=== PATIENT | male | born 1945 | race Caucasian/White ===

== ENCOUNTER → 2017-12-26 | Outpatient (CLI) | payer MEDICARE ==
--- NOTE | 2017-12-26 08:20 | US ---
EXAMINATION TYPE: US duplex aorta DATE OF EXAM: 12/26/2017 COMPARISON: NONE CLINICAL HISTORY: Z13.9 Screening for Disorder. Smoker x 65 years; No HTN EXAM MEASUREMENTS: Abdominal Aorta: Proximal: 2.5 by 2.3 cm transversely Mid: 2.2 x 1.8 cm transversely Distal: 1.8 x 2.1 cm transversely Bifurcation: 1.25cm Transverse Right SUSHIL; 1.19cm Transverse Left SUSHIL Abdominal aorta is visualized through bifurcation without greater than 3 cm aneurysmal change. IMPRESSION: No ultrasound evidence for AAA.
== END ==
LOC: RADUSWWP 07:00
PROVIDERS: ATTEND Family Medicine
DX: Z13.9 Encounter for screening, unspecified (principal)
CPT/HCPCS: 93979

== ENCOUNTER 2020-10-22 21:22 | Inpatient (IN) | payer MEDICARE ==
[2020-10-22] MEDS ORDERED: TRANEXAMIC ACID 1,000 MG/10 ML VIAL INHALATION ONE (22:00)
[2020-10-22] MEDS ORDERED: ONDANSETRON 4 MG/2 ML VIAL IVP STA (22:03)
[2020-10-22] MEDS ORDERED: IPRATROPIUM-ALBUTEROL 3 ML NEB INHALATION STA (22:03)
[2020-10-22] MEDS ORDERED: PANTOPRAZOLE 40 MG/10 ML VIAL IVP STA (22:03)
[2020-10-22] MEDS ORDERED: LORazepam 2 MG/ML INJ IV STA (22:03)
[2020-10-22] MEDS ORDERED: methylPREDNISolone SOD SUCCI 125 MG/2 ML VIAL IV STA (22:07)
[2020-10-22] MEDS ORDERED: TERBUTALINE 1 MG/ML VIAL SQ STA (22:13)
[2020-10-22] MEDS ORDERED: TRANEXAMIC ACID 1,000 MG in SODIUM CHLORIDE 0.9% 100 ML IV ONE (22:15)
[2020-10-22] MEDS ORDERED: PHYTONADIONE 5 MG in SODIUM CHLORIDE 0.9% 50 ML IVPB ONE (22:15)
[2020-10-22 22:25] LABS: Basophils # (A) 0.1 k/uL (0-0.2); Basophils % (A) 1 %; Eosinophils # (A) 0.4 k/uL (0-0.7); Eosinophils % (A) 4 %; HCT 39.3 % (39.0-53.0); HGB 12.5 gm/dL (13.0-17.5); Lymphocytes # (A) 2.7 k/uL (1.0-4.8); Lymphocytes % (A) 27 %; MCH 30.4 pg (25.0-35.0); MCHC 31.7 g/dL (31.0-37.0); MCV 95.9 fL (80.0-100.0); Mean Platelet Volume 7.3; Monocytes # (A) 0.8 k/uL (0-1.0); Monocytes % (A) 8 %; Neutrophils # (A) 5.8 k/uL (1.3-7.7); Neutrophils % (A) 58 %; Platelet Count 404 k/uL (150-450); RBC 4.09 m/uL (4.30-5.90); RDW 13.9 % (11.5-15.5)
--- NOTE | 2020-10-22 22:29 | XR ---
EXAMINATION TYPE: XR chest 1V portable DATE OF EXAM: 10/22/2020 COMPARISON: 11/12/2009 HISTORY: Cough TECHNIQUE: Single view FINDINGS: There is extensive airspace consolidation right upper lobe. There is some patchy infiltrate throughout both lungs. Heart size is fairly normal. There is no gross heart failure. There is flatte tan of the diaphragm. There are surgical clips at the gastroesophageal junction. There are chest jace ds. IMPRESSION: Right upper lobe pneumonia. Consolidation at the right lung apex. Bilateral diffuse inter stitial pneumonia. Lung abnormality significantly increased compared to old exam.
[2020-10-22 22:39] LABS: ALT 10 U/L (4-49); AST 20 U/L (17-59); African American GFR (CKD) >90 (>60 ml/min/1.73 sqM); Albumin 3.8 g/dL (3.5-5.0); Alkaline Phosphatase 107 U/L (38-126); Anion Gap 11 mmol/L; Blood Urea Nitrogen 20 mg/dL (9-20); Calcium 9.1 mg/dL (8.4-10.2); Carbon Dioxide 26 mmol/L (22-30); Chloride 103 mmol/L (98-107); Glucose 138 mg/dL (74-99); Non-African American GFR(CKD) 82 (>60 ml/min/1.73 sqM); Phosphorus 3.9 mg/dL (2.5-4.5); Potassium 4.7 mmol/L (3.5-5.1); Sodium 140 mmol/L (137-145); Total Bilirubin 0.4 mg/dL (0.2-1.3); Total Protein 6.9 g/dL (6.3-8.2)
[2020-10-22] MEDS ORDERED: SODIUM CHLORIDE 0.9% 2,000 ML IV ONE (22:45)
[2020-10-22] MEDS ORDERED: NOREPINEPHRINE 4 MG in SODIUM CHLORIDE 0.9% 250 ML IV ONE (22:45)
[2020-10-22] MEDS ORDERED: MIDAZOLAM 1 MG/ML 5 ML VIAL IV STA (22:59)
[2020-10-22] MEDS ORDERED: ROCURONIUM 10 MG/ML (5 ML VIAL) IV STA (23:00)
--- NOTE | 2020-10-22 23:01 | XR ---
EXAMINATION TYPE: XR chest 1V DATE OF EXAM: 10/22/2020 COMPARISON: Today HISTORY: Coughing up blood. Intubation TECHNIQUE: Eusebio view FINDINGS: The endotracheal tube is 5 cm from the konstantin. There is diffuse pulmonary interstitial infi ltrates. There is consolidation at the right lung apex. No pneumothorax. Trachea is midline. There is no pleural effusion. There is nasogastric tube and the tip appears to be in the distal esophagus. IMPRESSION: Endotracheal tube in good position. Nasogastric tube appears to be in the lower esophagus .
[2020-10-22 23:03] LABS: INR 3.7 (<1.2); Partial Thromboplastin Time 34.4 sec (22.0-30.0); Prothrombin Time 35.4 sec (9.0-12.0)
[2020-10-22 23:45] LABS: ABG Base Excess -6.2 mmol/L; ABG HCO3 22 mmol/L (21-25); ABG Oxygen Saturation 99.3 % (94-97); ABG PCO2 55 mmHg (35-45); ABG PH 7.21 (7.35-7.45); ABG PO2 >400 mmHg (83-108); ABG TCO2 23 mmol/L (19-24); Allen Test Performed? Yes
[2020-10-22] MEDS ORDERED: AZITHROMYCIN 500 MG in SODIUM CHLORIDE 0.9% 250 ML IVPB ONE (23:45)
[2020-10-23] MEDS ORDERED: MIDAZOLAM 1 MG/ML 5 ML VIAL IV STA (00:09)
[2020-10-23] MEDS ORDERED: SODIUM CHLORIDE 0.9% 150 ML with VASOPRESSIN 60 UNIT IV SCH ×2 (00:30)
[2020-10-23] MEDS ORDERED: NOREPINEPHRINE 32 MG in SODIUM CHLORIDE 0.9% 218 ML IV ONE (00:30)
[2020-10-23] MEDS ORDERED: MIDAZOLAM HCL 50 MG in SODIUM CHLORIDE 0.9% 40 ML IV SCH (00:30)
--- NOTE | 2020-10-23 00:51 | ED ---
SOB HPI - General Chief Complaint: Recheck/Abnormal Lab/Rx Stated Complaint: Vomiting blood Time Seen by Provider: 10/22/20 21:37 Source: patient, RN notes reviewed, old records reviewed Mode of arrival: ambulatory Limitations: no limitations - History of Present Illness Initial Comments: This is a 75-year-old male coming to the ER for evaluation. Per family patient has a fibrillation on Coumadin. Patient had an active few days but began to cough up blood tonight which initially began this morning. The coughing up of blood increased tonight to become more bright red and patient was having more difficulty catching his breath. Patient continues to deny any chest pain or recent fevers. He does get sweats and currently feels very sweaty. Patient denying any recent significant travel history or sick contacts. No recent hospitalizations. Patient is in significant distress upon arrival in the ER w Complaint: shortness of breath, cough, anxiety -: hour(s) Severity: severe Severity scale (1-10): 10 Improves With: nothing Worsens With: nothing Known History Of: COPD, other (On anticoagulation) Context: recent URI, anxiety, recent illness, other (Hemoptysis) Associated Symptoms: cough, sputum production, hemoptysis Treatments Prior to Arrival: none - Related Data Home Oxygen Therapy: No Home Medications Medication Instructions Recorded Confirmed Levothyroxine Sodium 25 mcg PO DAILY 10/22/20 10/22/20 Metoprolol Tartrate [Lopressor] 50 mg PO HS 10/22/20 10/22/20 Metoprolol Tartrate [Lopressor] 100 mg PO DAILY@1200 10/22/20 10/22/20 Metoprolol Tartrate [Lopressor] 150 mg PO DAILY@0900 10/22/20 10/22/20 Warfarin Sodium 5 mg PO TUSA 10/22/20 10/22/20 Allergies Allergy/AdvReac Type Severity Reaction Status Date / Time No Known Allergies Allergy Verified 10/22/20 22:04 Review of Systems ROS Statement: Those systems with pertinent positive or pertinent negative responses have been documented in the HPI. ROS Other: All systems not noted in ROS Statement are negative. 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 History of Any Multi-Drug Resistant Organisms: None Reported Additional Past Surgical History / Comment(s): EGD Past Psychological History: No Psychological Hx Reported Smoking Status: Former smoker Past Alcohol Use History: None Reported Past Drug Use History: None Reported General Exam - General Exam Comments Initial Comments: GCS of 15 Patient is awake and alert but in severe respiratory distress Actively coughing up significant amounts of blood, bright red blood Limitations: altered mental status, physical limitation General appearance: alert, anxious, lethargic, in distress, cachectic Head exam: Present: atraumatic, normocephalic, normal inspection Eye exam: Present: normal appearance, PERRL, EOMI. Absent: scleral icterus, conjunctival injection, periorbital swelling ENT exam: Present: normal exam, mucous membranes moist Neck exam: Present: normal inspection. Absent: tenderness, meningismus, lymphadenopathy Respiratory exam: Present: respiratory distress, wheezes, accessory muscle use, decreased breath sounds, prolonged expiratory. Absent: rales, rhonchi, stridor Cardiovascular Exam: Present: tachycardia, irregular rhythm, normal heart sounds. Absent: systolic murmur, diastolic murmur, rubs, gallop, clicks GI/Abdominal exam: Present: soft, normal bowel sounds. Absent: distended, tenderness, guarding, rebound, rigid Extremities exam: Present: normal inspection, full ROM, normal capillary refill. Absent: tenderness, pedal edema, joint swelling, calf tenderness Back exam: Present: normal inspection Neurological exam: Present: alert, oriented X3, CN II-XII intact Psychiatric exam: Present: anxious Skin exam: Present: warm, dry, intact, normal color, diaphoretic. Absent: rash Course Vital Signs 10/22/20 10/22/20 10/22/20 21:24 22:00 22:06 Temperature 97.8 F Pulse Rate 122 H 142 H 146 H Respiratory 22 Rate Blood Pressure 121/83 O2 Sat by Pulse 90 L Oximetry 10/22/20 10/22/20 10/22/20 22:46 22:50 22:55 Temperature Pulse Rate 149 H 160 H 154 H Respiratory 14 14 Rate Blood Pressure 129/67 85/71 O2 Sat by Pulse 100 100 Oximetry 10/22/20 10/22/20 10/22/20 23:00 23:15 23:20 Temperature Pulse Rate 147 H 154 H 154 H Respiratory 14 14 14 Rate Blood Pressure 83/67 74/42 98/78 O2 Sat by Pulse 100 100 100 Oximetry 0710/22/20 10/22/20 23:30 23:35 23:40 Temperature Pulse Rate 147 H 147 H 142 H Respiratory 14 14 14 Rate Blood Pressure 82/50 83/43 75/49 O2 Sat by Pulse 100 100 100 Oximetry 10/22/20 10/23/20 10/23/20 23:45 00:00 00:17 Temperature Pulse Rate 142 H 142 H 142 H Respiratory 14 14 14 Rate Blood Pressure 84/66 85/73 82/60 O2 Sat by Pulse 100 100 100 Oximetry 10/23/20 10/23/20 10/23/20 00:31 00:35 00:47 Temperature Pulse Rate 131 H Respiratory 14 20 Rate Blood Pressure 77/39 66/49 O2 Sat by Pulse 99 98 Oximetry 10/23/20 10/23/20 10/23/20 00:55 01:00 01:10 Temperature Pulse Rate 129 H 125 H 126 H Respiratory 20 20 20 Rate Blood Pressure 56/39 61/44 58/48 O2 Sat by Pulse 99 97 100 Oximetry 10/23/20 10/23/20 10/23/20 01:15 01:25 01:35 Temperature Pulse Rate 133 H 117 H 120 H Respiratory 20 20 20 Rate Blood Pressure 65/55 65/52 82/70 O2 Sat by Pulse 100 97 100 Oximetry 10/23/20 10/23/20 10/23/20 02:00 02:24 02:45 Temperature 97.8 F Pulse Rate 124 H 129 H 122 H Respiratory 20 20 15 Rate Blood Pressure 100/79 87/69 90/65 O2 Sat by Pulse 100 96 95 Oximetry 10/23/20 10/23/20 02:51 03:00 Temperature Pulse Rate 120 H Respiratory 50 H Rate Blood Pressure 80/57 86/61 O2 Sat by Pulse 95 Oximetry - Reevaluation(s) Reevaluation #1: 10/23/20 00:53 Record is reviewed 10/23/20 00:53 Patient presenting in significant distress severe respiratory distress Reevaluation #2: 10/23/20 00:53 Patient given breathing treatments and nebulized TxA on arrival to ER secondary to massive hemoptysis Patient became critical and he became weak and was unable to cough up blood in his lungs. While on nonrebreather and taking it off to rule out patient to cough up the blood patient continued to become more hypoxic, diaphoretic Patient began to become significantly fatigued and tired from a significant work of breathing This patient became significantly more somnolent and decision was made to intubate Reevaluation #3: 10/23/20 00:55 Patient also found to be in significant atrial fibrillation with RVR, unable to control rate and significantly labile blood pressure, hypotensive Patient is requiring blood pressure support Patient is moving and experiencing pain requiring sedation Patient's oxygenation improving of event although remains in cardiogenic shock in atrial fibrillation with RVR Reevaluation #4: 10/23/20 00:56 Did speak with family and family members at bedside her aware of patient's condition and grave prognosis - Consultations Consultation #1: Spoke with ICU for admission, Dr. Woo, [facility] also aware for admission Medical Decision Making - Medical Decision Making 75 male to the ER for evaluation. Patient presented for shortness of breath and coughing up blood or bloody couple more short of breath he became the weekly became more hypoxic he became. Patient was intubated for hypoxic respiratory failure, found to be nature for ablation with RVR throughout ER stay worsening cardiogenic shock port. Patient also found to have pneumonia on x-ray place on antibiotics. - Lab Data Result diagrams: 10/22/20 22:08 10/22/20 22:08 Lab Results 10/22/20 10/22/20 10/22/20 Range/Units 22:08 22:08 22:08 WBC 10.0 (3.8-10.6) k/uL RBC 4.09 L (4.30-5.90) m/uL Hgb 12.5 L (13.0-17.5) gm/dL Hct 39.3 (39.0-53.0) % MCV 95.9 (80.0-100.0) fL MCH 30.4 (25.0-35.0) pg MCHC 31.7 (31.0-37.0) g/dL RDW 13.9 (11.5-15.5) % Plt Count 404 (150-450) k/uL MPV 7.3 Neutrophils % 58 % Lymphocytes % 27 % Monocytes % 8 % Eosinophils % 4 % Basophils % 1 % Neutrophils # 5.8 (1.3-7.7) k/uL Lymphocytes # 2.7 (1.0-4.8) k/uL Monocytes # 0.8 (0-1.0) k/uL Eosinophils # 0.4 (0-0.7) k/uL Basophils # 0.1 (0-0.2) k/uL PT 35.4 H (9.0-12.0) sec INR 3.7 H (<1.2) APTT 34.4 H (22.0-30.0) sec D-Dimer 0.39 (<0.60) mg/L FEU Sample Site ABG pH (7.35-7.45) ABG pCO2 (35-45) mmHg ABG pO2 (83-108) mmHg ABG HCO3 (21-25) mmol/L ABG Total CO2 (19-24) mmol/L ABG O2 Saturation (94-97) % ABG Base Excess mmol/L Lucho Test FiO2 % Sodium 140 (137-145) mmol/L Potassium 4.7 (3.5-5.1) mmol/L Chloride 103 (98-107) mmol/L Carbon Dioxide 26 (22-30) mmol/L Anion Gap 11 mmol/L BUN 20 (9-20) mg/dL Creatinine 0.92 (0.66-1.25) mg/dL Est GFR (CKD-EPI)AfAm >90 (>60 ml/min/1.73 sqM) Est GFR (CKD-EPI)NonAf 82 (>60 ml/min/1.73 sqM) Glucose 138 H (74-99) mg/dL Lactic Ac Sepsis Rflx Plasma Lactic Acid Isaac (0.7-2.0) mmol/L Calcium 9.1 (8.4-10.2) mg/dL Phosphorus 3.9 (2.5-4.5) mg/dL Magnesium 2.0 (1.6-2.3) mg/dL Total Bilirubin 0.4 (0.2-1.3) mg/dL AST 20 (17-59) U/L ALT 10 (4-49) U/L Alkaline Phosphatase 107 (38-126) U/L Troponin I (0.000-0.034) ng/mL Total Protein 6.9 (6.3-8.2) g/dL Albumin 3.8 (3.5-5.0) g/dL 10/22/20 10/22/20 10/22/20 Range/Units 22:08 22:08 22:48 WBC (3.8-10.6) k/uL RBC (4.30-5.90) m/uL Hgb (13.0-17.5) gm/dL Hct (39.0-53.0) % MCV (80.0-100.0) fL MCH (25.0-35.0) pg MCHC (31.0-37.0) g/dL RDW (11.5-15.5) % Plt Count (150-450) k/uL MPV Neutrophils % % Lymphocytes % % Monocytes % % Eosinophils % % Basophils % % Neutrophils # (1.3-7.7) k/uL Lymphocytes # (1.0-4.8) k/uL Monocytes # (0-1.0) k/uL Eosinophils # (0-0.7) k/uL Basophils # (0-0.2) k/uL PT (9.0-12.0) sec INR (<1.2) APTT (22.0-30.0) sec D-Dimer (<0.60) mg/L FEU Sample Site ABG pH (7.35-7.45) ABG pCO2 (35-45) mmHg ABG pO2 (83-108) mmHg ABG HCO3 (21-25) mmol/L ABG Total CO2 (19-24) mmol/L ABG O2 Saturation (94-97) % ABG Base Excess mmol/L Lucho Test FiO2 % Sodium (137-145) mmol/L Potassium (3.5-5.1) mmol/L Chloride (98-107) mmol/L Carbon Dioxide (22-30) mmol/L Anion Gap mmol/L BUN (9-20) mg/dL Creatinine (0.66-1.25) mg/dL Est GFR (CKD-EPI)AfAm (>60 ml/min/1.73 sqM) Est GFR (CKD-EPI)NonAf (>60 ml/min/1.73 sqM) Glucose (74-99) mg/dL Lactic Ac Sepsis Rflx Y Plasma Lactic Acid Isaac 2.6 H* (0.7-2.0) mmol/L Calcium (8.4-10.2) mg/dL Phosphorus (2.5-4.5) mg/dL Magnesium (1.6-2.3) mg/dL Total Bilirubin (0.2-1.3) mg/dL AST (17-59) U/L ALT (4-49) U/L Alkaline Phosphatase (38-126) U/L Troponin I <0.012 (0.000-0.034) ng/mL Total Protein (6.3-8.2) g/dL Albumin (3.5-5.0) g/dL 10/22/20 10/23/20 Range/Units 23:41 01:54 WBC (3.8-10.6) k/uL RBC (4.30-5.90) m/uL Hgb (13.0-17.5) gm/dL Hct (39.0-53.0) % MCV (80.0-100.0) fL MCH (25.0-35.0) pg MCHC (31.0-37.0) g/dL RDW (11.5-15.5) % Plt Count (150-450) k/uL MPV Neutrophils % % Lymphocytes % % Monocytes % % Eosinophils % % Basophils % % Neutrophils # (1.3-7.7) k/uL Lymphocytes # (1.0-4.8) k/uL Monocytes # (0-1.0) k/uL Eosinophils # (0-0.7) k/uL Basophils # (0-0.2) k/uL PT (9.0-12.0) sec INR (<1.2) APTT (22.0-30.0) sec D-Dimer (<0.60) mg/L FEU Sample Site L femoral ABG pH 7.21 L (7.35-7.45) ABG pCO2 55 H (35-45) mmHg ABG pO2 >400 H (83-108) mmHg ABG HCO3 22 (21-25) mmol/L ABG Total CO2 23 (19-24) mmol/L ABG O2 Saturation 99.3 H (94-97) % ABG Base Excess -6.2 mmol/L Lucho Test Yes FiO2 100 % Sodium (137-145) mmol/L Potassium (3.5-5.1) mmol/L Chloride (98-107) mmol/L Carbon Dioxide (22-30) mmol/L Anion Gap mmol/L BUN (9-20) mg/dL Creatinine (0.66-1.25) mg/dL Est GFR (CKD-EPI)AfAm (>60 ml/min/1.73 sqM) Est GFR (CKD-EPI)NonAf (>60 ml/min/1.73 sqM) Glucose (74-99) mg/dL Lactic Ac Sepsis Rflx Plasma Lactic Acid Isaac 1.9 (0.7-2.0) mmol/L Calcium (8.4-10.2) mg/dL Phosphorus (2.5-4.5) mg/dL Magnesium (1.6-2.3) mg/dL Total Bilirubin (0.2-1.3) mg/dL AST (17-59) U/L ALT (4-49) U/L Alkaline Phosphatase (38-126) U/L Troponin I (0.000-0.034) ng/mL Total Protein (6.3-8.2) g/dL Albumin (3.5-5.0) g/dL - EKG Data -: EKG Interpreted by Me (EKG shows sinus arrhythmia 128 QRS 106 QTc 452) Rate: tachycardia (EKG shows A. fib with RVR 151 QRS 102 QTC 510) - Radiology Data Radiology results: report reviewed (Chest x-ray and then repeat chest x-ray does show ET tube placement positive, right upper lobe pneumonia), image reviewed Critical Care Time Critical Care Time: Yes Total Critical Care Time: 65 Disposition Clinical Impression: Acute exacerbation of COPD with asthma, Hypoxia, Acute respiratory failure, Shock, Atrial fibrillation with RVR, Massive hemoptysis, Community acquired pneumonia, Coagulopathy, Coumadin toxicity Disposition: ADMITTED IP TO THIS HOSP Condition: Critical Is patient prescribed a controlled substance at d/c from ED?: No
[2020-10-23] MEDS: fentaNYL (PF). 1,000 MCG in SODIUM CHLORIDE 0.9% 80 ML IV SCH ×2 (01:40→01:48)
[2020-10-23] MEDS ORDERED: NALOXONE 0.4 MG/ML 1 ML VIAL IV PRN (01:56)
[2020-10-23] MEDS ORDERED: MORPHINE SULFATE 4 MG/ML SYRINGE IV PRN (01:56)
[2020-10-23] MEDS ORDERED: IPRATROPIUM-ALBUTEROL 3 ML NEB INHALATION STA (01:56)
[2020-10-23] MEDS ORDERED: DEXTROSE 5%-0.45% NACL 1,000 ML IV SCH (02:00)
[2020-10-23] MEDS ORDERED: ALBUTEROL HFA INHALER INHALATION STA (02:17)
[2020-10-23 03:29] LABS: Glucose,Whole Blood 201 mg/dL (75-99)
--- NOTE | 2020-10-23 04:55 | ED ---
Medical Decision Making - Medical Decision Making Addendum note for procedures - Lab Data Result diagrams: 10/22/20 22:08 10/22/20 22:08 Lab Results 10/22/20 10/22/20 10/22/20 Range/Units 22:08 22:08 22:08 WBC 10.0 (3.8-10.6) k/uL RBC 4.09 L (4.30-5.90) m/uL Hgb 12.5 L (13.0-17.5) gm/dL Hct 39.3 (39.0-53.0) % MCV 95.9 (80.0-100.0) fL MCH 30.4 (25.0-35.0) pg MCHC 31.7 (31.0-37.0) g/dL RDW 13.9 (11.5-15.5) % Plt Count 404 (150-450) k/uL MPV 7.3 Neutrophils % 58 % Lymphocytes % 27 % Monocytes % 8 % Eosinophils % 4 % Basophils % 1 % Neutrophils # 5.8 (1.3-7.7) k/uL Lymphocytes # 2.7 (1.0-4.8) k/uL Monocytes # 0.8 (0-1.0) k/uL Eosinophils # 0.4 (0-0.7) k/uL Basophils # 0.1 (0-0.2) k/uL PT 35.4 H (9.0-12.0) sec INR 3.7 H (<1.2) APTT 34.4 H (22.0-30.0) sec D-Dimer 0.39 (<0.60) mg/L FEU Sample Site ABG pH (7.35-7.45) ABG pCO2 (35-45) mmHg ABG pO2 (83-108) mmHg ABG HCO3 (21-25) mmol/L ABG Total CO2 (19-24) mmol/L ABG O2 Saturation (94-97) % ABG Base Excess mmol/L Lucho Test FiO2 % Sodium 140 (137-145) mmol/L Potassium 4.7 (3.5-5.1) mmol/L Chloride 103 (98-107) mmol/L Carbon Dioxide 26 (22-30) mmol/L Anion Gap 11 mmol/L BUN 20 (9-20) mg/dL Creatinine 0.92 (0.66-1.25) mg/dL Est GFR (CKD-EPI)AfAm >90 (>60 ml/min/1.73 sqM) Est GFR (CKD-EPI)NonAf 82 (>60 ml/min/1.73 sqM) Glucose 138 H (74-99) mg/dL Lactic Ac Sepsis Rflx Plasma Lactic Acid Isaac (0.7-2.0) mmol/L Calcium 9.1 (8.4-10.2) mg/dL Phosphorus 3.9 (2.5-4.5) mg/dL Magnesium 2.0 (1.6-2.3) mg/dL Total Bilirubin 0.4 (0.2-1.3) mg/dL AST 20 (17-59) U/L ALT 10 (4-49) U/L Alkaline Phosphatase 107 (38-126) U/L Troponin I (0.000-0.034) ng/mL Total Protein 6.9 (6.3-8.2) g/dL Albumin 3.8 (3.5-5.0) g/dL 10/22/20 10/22/20 10/22/20 Range/Units 22:08 22:08 22:48 WBC (3.8-10.6) k/uL RBC (4.30-5.90) m/uL Hgb (13.0-17.5) gm/dL Hct (39.0-53.0) % MCV (80.0-100.0) fL MCH (25.0-35.0) pg MCHC (31.0-37.0) g/dL RDW (11.5-15.5) % Plt Count (150-450) k/uL MPV Neutrophils % % Lymphocytes % % Monocytes % % Eosinophils % % Basophils % % Neutrophils # (1.3-7.7) k/uL Lymphocytes # (1.0-4.8) k/uL Monocytes # (0-1.0) k/uL Eosinophils # (0-0.7) k/uL Basophils # (0-0.2) k/uL PT (9.0-12.0) sec INR (<1.2) APTT (22.0-30.0) sec D-Dimer (<0.60) mg/L FEU Sample Site ABG pH (7.35-7.45) ABG pCO2 (35-45) mmHg ABG pO2 (83-108) mmHg ABG HCO3 (21-25) mmol/L ABG Total CO2 (19-24) mmol/L ABG O2 Saturation (94-97) % ABG Base Excess mmol/L Lucho Test FiO2 % Sodium (137-145) mmol/L Potassium (3.5-5.1) mmol/L Chloride (98-107) mmol/L Carbon Dioxide (22-30) mmol/L Anion Gap mmol/L BUN (9-20) mg/dL Creatinine (0.66-1.25) mg/dL Est GFR (CKD-EPI)AfAm (>60 ml/min/1.73 sqM) Est GFR (CKD-EPI)NonAf (>60 ml/min/1.73 sqM) Glucose (74-99) mg/dL Lactic Ac Sepsis Rflx Y Plasma Lactic Acid Isaac 2.6 H* (0.7-2.0) mmol/L Calcium (8.4-10.2) mg/dL Phosphorus (2.5-4.5) mg/dL Magnesium (1.6-2.3) mg/dL Total Bilirubin (0.2-1.3) mg/dL AST (17-59) U/L ALT (4-49) U/L Alkaline Phosphatase (38-126) U/L Troponin I <0.012 (0.000-0.034) ng/mL Total Protein (6.3-8.2) g/dL Albumin (3.5-5.0) g/dL 10/22/20 10/23/20 Range/Units 23:41 01:54 WBC (3.8-10.6) k/uL RBC (4.30-5.90) m/uL Hgb (13.0-17.5) gm/dL Hct (39.0-53.0) % MCV (80.0-100.0) fL MCH (25.0-35.0) pg MCHC (31.0-37.0) g/dL RDW (11.5-15.5) % Plt Count (150-450) k/uL MPV Neutrophils % % Lymphocytes % % Monocytes % % Eosinophils % % Basophils % % Neutrophils # (1.3-7.7) k/uL Lymphocytes # (1.0-4.8) k/uL Monocytes # (0-1.0) k/uL Eosinophils # (0-0.7) k/uL Basophils # (0-0.2) k/uL PT (9.0-12.0) sec INR (<1.2) APTT (22.0-30.0) sec D-Dimer (<0.60) mg/L FEU Sample Site L femoral ABG pH 7.21 L (7.35-7.45) ABG pCO2 55 H (35-45) mmHg ABG pO2 >400 H (83-108) mmHg ABG HCO3 22 (21-25) mmol/L ABG Total CO2 23 (19-24) mmol/L ABG O2 Saturation 99.3 H (94-97) % ABG Base Excess -6.2 mmol/L Lucho Test Yes FiO2 100 % Sodium (137-145) mmol/L Potassium (3.5-5.1) mmol/L Chloride (98-107) mmol/L Carbon Dioxide (22-30) mmol/L Anion Gap mmol/L BUN (9-20) mg/dL Creatinine (0.66-1.25) mg/dL Est GFR (CKD-EPI)AfAm (>60 ml/min/1.73 sqM) Est GFR (CKD-EPI)NonAf (>60 ml/min/1.73 sqM) Glucose (74-99) mg/dL Lactic Ac Sepsis Rflx Plasma Lactic Acid Isaac 1.9 (0.7-2.0) mmol/L Calcium (8.4-10.2) mg/dL Phosphorus (2.5-4.5) mg/dL Magnesium (1.6-2.3) mg/dL Total Bilirubin (0.2-1.3) mg/dL AST (17-59) U/L ALT (4-49) U/L Alkaline Phosphatase (38-126) U/L Troponin I (0.000-0.034) ng/mL Total Protein (6.3-8.2) g/dL Albumin (3.5-5.0) g/dL Disposition Clinical Impression: Acute exacerbation of COPD with asthma, Hypoxia, Acute respiratory failure, Shock, Atrial fibrillation with RVR, Massive hemoptysis, Community acquired pneumonia, Coagulopathy, Coumadin toxicity Disposition: ADMITTED IP TO THIS HOSP Condition: Critical Procedures - Central Line Placement Right IJ Consent Obtained: verbal consent Patient Placed on Monitor/Pulse Ox: Yes MD Prep: mask, gown, gloves Central Line Prep: Povidone-Iodine 1% Local Anesthesia Used: Lidocaine 1%, with Epi Ultrasound Used for Placement: Yes Central Line Lumen Inserted: triple Bloods Obtained for Lab: Yes Central Line Position: good blood return, all ports aspirated, flushed, capped, sutured in place with 2-0 silk Dressing Applied: Tegaderm Post Procedure X-Ray: tip of catheter in good position Patient Tolerated Procedure: well Complications: none - Intubation Sedative: Versed Laryngoscope: Latanya Size: 4 ET Tube Size: 8 ET Tube Uncuffed: No Tube Secured Location: teeth Tube Placement Confirmation: visualized tube passing through cords, equal breath sounds bilaterally, no breath sounds over epigastrium, confirmation by capnometry Patient Tolerated Procedure: well Intubation Complications: none
[2020-10-23 05:04] LABS: ABG Base Excess -5.6 mmol/L; ABG HCO3 21 mmol/L (21-25); ABG Oxygen Saturation 95.9 % (94-97); ABG PCO2 45 mmHg (35-45); ABG PH 7.28 (7.35-7.45); ABG PO2 90 mmHg (83-108); ABG TCO2 22 mmol/L (19-24); Allen Test Performed? Yes
[2020-10-23 05:17] LABS: Basophils % (A) 0 %; Eosinophils % (A) 0 %; HCT 35.5 % (39.0-53.0); HGB 10.7 gm/dL (13.0-17.5); Hypochromasia Moderate; Lymphocytes # (A) 0.6 k/uL (1.0-4.8); Lymphocytes % (A) 5 %; MCH 30.1 pg (25.0-35.0); MCHC 30.2 g/dL (31.0-37.0); MCV 99.5 fL (80.0-100.0); Mean Platelet Volume 7.4; Monocytes # (A) 0.3 k/uL (0-1.0); Monocytes % (A) 2 %; Neutrophils # (A) 11.5 k/uL (1.3-7.7); Neutrophils % (A) 92 %; Platelet Count 387 k/uL (150-450); RBC 3.57 m/uL (4.30-5.90); RDW 13.8 % (11.5-15.5); WBC 12.6 k/uL (3.8-10.6)
[2020-10-23 05:21] LABS: INR 3.1 (<1.2); Partial Thromboplastin Time 27.7 sec (22.0-30.0); Prothrombin Time 29.6 sec (9.0-12.0)
[2020-10-23 05:24] LABS: ALT 34 U/L (4-49); AST 71 U/L (17-59); African American GFR (CKD) >90 (>60 ml/min/1.73 sqM); Albumin 2.7 g/dL (3.5-5.0); Alkaline Phosphatase 103 U/L (38-126); Anion Gap 8 mmol/L; Blood Urea Nitrogen 20 mg/dL (9-20); Calcium 7.6 mg/dL (8.4-10.2); Carbon Dioxide 23 mmol/L (22-30); Chloride 108 mmol/L (98-107); Glucose 188 mg/dL (74-99); Magnesium 1.8 mg/dL (1.6-2.3); Non-African American GFR(CKD) 79 (>60 ml/min/1.73 sqM); Potassium 4.8 mmol/L (3.5-5.1); Sodium 139 mmol/L (137-145); Total Bilirubin 0.5 mg/dL (0.2-1.3); Total Protein 5.3 g/dL (6.3-8.2)
[2020-10-23] MEDS ORDERED: INSULIN ASPART (NovoLOG) 100 UNIT/ML VIAL SQ SCH (06:00)
[2020-10-23 06:07] LABS: Glucose,Whole Blood 282 mg/dL (75-99)
[2020-10-23] MEDS: methylPREDNISolone SOD SUCCI 125 MG/2 ML VIAL IV SCH ×4 (06:21→23:03)
[2020-10-23] MEDS: MAGNESIUM SULFATE-D5W PMX 1 GM in DEXTROSE/WATER 1 100ML.BAG IVPB SCH ×2 (06:21→08:33)
--- NOTE | 2020-10-23 07:27 | XR ---
EXAMINATION TYPE: XR chest 1V DATE OF EXAM: 10/23/2020 COMPARISON: 10/22/2020 HISTORY: Short of breath TECHNIQUE: Single frontal view of the chest is obtained. FINDINGS: Interval placement of right IJ line terminating at the cavoatrial junction. Endotracheal and enteric tubes are unchanged. Right apical pleural thickening with bilateral upper lobe predominant airspace disease, unchanged, wi th underlying hyperinflation of the lungs. Cardiac silhouette is unchanged in size. IMPRESSION: Interval placement of right IJ line. Otherwise, no significant change since the prior ex am.
[2020-10-23] MEDS ORDERED: ALBUTEROL NEBULIZED 2.5 MG/3 ML INHALATION SCH (08:00)
[2020-10-23] MEDS: PANTOPRAZOLE 40 MG/10 ML VIAL IV SCH (08:32)
[2020-10-23] MEDS ORDERED: CISATRACURIUM 2 MG/ML 5 ML VIAL IV ONE (08:48)
[2020-10-23] MEDS: METOPROLOL TARTRATE 25 MG TAB PO SCH ×3 (09:18→20:01)
[2020-10-23 09:21] LABS: Glucose,Whole Blood 313 mg/dL (75-99)
[2020-10-23] MEDS: INSULIN ASPART (NovoLOG) 100 UNIT/ML VIAL SQ SCH ×4 (09:23→23:01)
--- NOTE | 2020-10-23 09:38 | P.CNPUL ---
History of Present Illness Consult date: 10/23/20 Requesting physician: Jorge Cordova Reason for consult: dyspnea, COPD, pneumonia, abnormal CXR/CT, other Chief complaint: Shortness of breath, hemoptysis. History of present illness: Pulmonary consult dated 10/23/2020. 75-year-old male who looks much older than his stated age, who apparently came in for coughing up blood. The patient apparently has a history of chronic atrial fibrillation for which she takes Coumadin. Apparently over the last few days, the patient began coughing up blood. On the day of admission to the emergency room, this became much more significant which is why he came in. In addition, he was apparently short of breath. He also apparently has been not eating, and she has been feeling generally ill. Patient apparently was in significant respiratory distress when he was seen in the emergency room, and eventually, because of respiratory compromise and failure, the patient was intubated and mechanically ventilated. He has a history of hypertension, atrial fibrillation, and hypothyroidism. His current ventilator settings include the volume assist control, rate of 20, tidal volume 400, FiO2 40%, and PEEP of 5. Blood gases on those settings pO2 of 90, pCO2 45, and pH is 7.28. The patient's on D5 and half-normal saline at 100 mL an hour, vasopressin at 0.03 units per minute, norepinephrine at 0.13 mcg/kg/m, first set at 1 mg an hour, and fentanyl at 1 mcg/kg/h. The patient's chest x-ray does show an infiltrate in the right upper lobe. White count 12.6, hemoglobin 10.7, hematocrit 35.5, platelet count 387,000. PTT 29.6, INR 3.1, sodium 139, potassium 4.8, chlorides 108, CO2 23, anion gap 8, BUN 20, creatinine 0.95, and a calcium of 7.6. Review of Systems No review of systems could be obtained. The patient was intubated and mechanically ventilated and sedated. According to the ER paolo, he came in with complaints of coughing up blood, and shortness of breath. 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 History of Any Multi-Drug Resistant Organisms: None Reported Additional Past Surgical History / Comment(s): EGD Past Psychological History: No Psychological Hx Reported Smoking Status: Former smoker Past Alcohol Use History: None Reported Past Drug Use History: None Reported Medications and Allergies Home Medications Medication Instructions Recorded Confirmed Type Levothyroxine Sodium 25 mcg PO DAILY 10/22/20 10/22/20 History Metoprolol Tartrate [Lopressor] 50 mg PO HS 10/22/20 10/22/20 History Metoprolol Tartrate [Lopressor] 100 mg PO DAILY@1200 10/22/20 10/22/20 History Metoprolol Tartrate [Lopressor] 150 mg PO DAILY@0900 10/22/20 10/22/20 History Warfarin Sodium 5 mg PO TUSA 10/22/20 10/22/20 History Allergies Allergy/AdvReac Type Severity Reaction Status Date / Time No Known Allergies Allergy Verified 10/22/20 22:04 Physical Exam Osteopathic Statement: *. No significant issues noted on an osteopathic structural exam other than those noted in the History and Physical/Consult. Vitals: Vital Signs Temp Pulse Resp BP Pulse Ox 10/23/20 07:45 133 H 10/23/20 07:30 135 H 10/23/20 07:00 105 H 12 133/89 98 10/23/20 06:30 137 H 15 108/71 98 10/23/20 06:00 122 H 20 115/74 97 10/23/20 05:30 130 H 20 101/76 96 10/23/20 05:00 123 H 20 100/85 97 10/23/20 04:30 124 H 20 101/87 99 10/23/20 04:00 122 H 20 112/81 98 10/23/20 03:30 97.7 F 118 H 20 108/94 99 10/23/20 03:00 120 H 50 H 86/61 95 10/23/20 02:51 80/57 10/23/20 02:45 122 H 15 90/65 95 10/23/20 02:24 97.8 F 129 H 20 87/69 96 10/23/20 02:00 124 H 20 100/79 100 10/23/20 01:35 120 H 20 82/70 100 10/23/20 01:25 117 H 20 65/52 97 10/23/20 01:15 133 H 20 65/55 100 10/23/20 01:10 126 H 20 58/48 100 10/23/20 01:00 125 H 20 61/44 97 10/23/20 00:55 129 H 20 56/39 99 10/23/20 00:47 20 66/49 98 10/23/20 00:35 77/39 10/23/20 00:31 131 H 14 99 10/23/20 00:17 142 H 14 82/60 100 10/23/20 00:00 142 H 14 85/73 100 10/22/20 23:45 142 H 14 84/66 100 10/22/20 23:40 142 H 14 75/49 100 10/22/20 23:35 147 H 14 83/43 100 10/22/20 23:30 147 H 14 82/50 100 10/22/20 23:20 154 H 14 98/78 100 10/22/20 23:15 154 H 14 74/42 100 10/22/20 23:00 147 H 14 83/67 100 10/22/20 22:55 154 H 14 85/71 100 10/22/20 22:50 160 H 14 129/67 100 10/22/20 22:46 149 H 10/22/20 22:30 154 H 73/60 10/22/20 22:25 68/28 10/22/20 22:20 78/64 10/22/20 22:15 137 H 115/76 76 L 10/22/20 22:06 146 H 10/22/20 22:00 154 H 114/74 80 L 10/22/20 21:24 97.8 F 122 H 22 121/83 90 L Intake and Output 10/22/20 10/23/20 10/23/20 22:59 06:59 14:59 Intake Total 357.018 169.725 Output Total 175 20 Balance 182.018 149.725 Intake: IV 300 100 Dextrose 5%-0.45% NaCl 1, 300 100 000 ml @ 100 mls/hr IV . Q10H [facility] Rx#:[id number] Intake, IV Titration 57.018 69.725 Amount Midazolam HCl 50 mg In 7.284 Sodium Chloride 0.9% 40 ml @ 1 MG/HR 1 mls/hr IV .Q24H [facility] Rx#:[id number] Norepinephrine 32 mg In 6.211 23.715 Sodium Chloride 0.9% 218 ml @ 0.05 MCG/KG/MIN 1.33 mls/hr IV .Q24H [facility] Rx#: [id number] Norepinephrine 4 mg In 50.807 Sodium Chloride 0.9% 250 ml @ 0.05 MCG/KG/MIN 10. 81 mls/hr IV .[id number] [facility] Rx#:[id number] fentaNYL (PF). 1,000 mcg 38.016 In Sodium Chloride 0.9% 80 ml @ Per Protocol IV . Q0M [facility] Rx#:[id number] propofoL 1,000 mg In 0.710 Empty Bag 1 bag @ Titrate IV .Q0M [facility] Rx#: [id number] Output: Urine 175 20 Other: Voiding Method Indwelling Catheter Weight 56.744 kg 56.744 kg No acute distress, sedated, looking much older than his stated age of 75, with an orally placed endotracheal tube and NG tube. HEENT examination is grossly unremarkable. Neck supple. Full range of motion. No adenopathy thyromegaly or neck vein distention. Cardiovascular examination reveals regular rhythm rate. S1-S2 normal. No S3 or S4. No discernible murmur noted. Heart rate 105. Heart sounds distant. Lungs reveal diminished bilateral breath sounds. Scattered rhonchi. No wheezes. No crackles. Breath sounds equal bilaterally. Abdomen soft bowel sounds are heard. No masses or tenderness. Extremities are intact. No cyanosis clubbing or edema. Skin is without rash or lesion. Neurologic examination could not be assessed because of his versed and fentanyl drips. Results - Laboratory Findings CBC and BMP: 10/23/20 04:08 10/23/20 04:08 ABG ABG pH 7.28 (7.35-7.45) L 10/23/20 04:58 ABG pCO2 45 mmHg (35-45) 10/23/20 04:58 ABG pO2 90 mmHg (83-108) 10/23/20 04:58 ABG O2 Saturation 95.9 % (94-97) 10/23/20 04:58 PT/INR, D-dimer PT 29.6 sec (9.0-12.0) H 10/23/20 04:08 INR 3.1 (<1.2) H 10/23/20 04:08 D-Dimer 0.39 mg/L FEU (<0.60) 10/22/20 22:08 Abnormal lab findings: Abnormal Labs 10/22/20 10/22/20 10/22/20 22:08 22:08 22:08 WBC RBC 4.09 L Hgb 12.5 L Hct MCHC Neutrophils # Lymphocytes # PT 35.4 H INR 3.7 H APTT 34.4 H ABG pH ABG pCO2 ABG pO2 ABG O2 Saturation Chloride Glucose 138 H POC Glucose (mg/dL) Plasma Lactic Acid Isaac Calcium AST Total Protein Albumin 10/22/20 10/22/20 10/23/20 22:08 23:41 03:27 WBC RBC Hgb Hct MCHC Neutrophils # Lymphocytes # PT INR APTT ABG pH 7.21 L ABG pCO2 55 H ABG pO2 >400 H ABG O2 Saturation 99.3 H Chloride Glucose POC Glucose (mg/dL) 201 H Plasma Lactic Acid Isaac 2.6 H* Calcium AST Total Protein Albumin 10/23/20 10/23/20 10/23/20 04:08 04:08 04:08 WBC 12.6 H RBC 3.57 L Hgb 10.7 L Hct 35.5 L MCHC 30.2 L Neutrophils # 11.5 H Lymphocytes # 0.6 L PT 29.6 H INR 3.1 H APTT ABG pH ABG pCO2 ABG pO2 ABG O2 Saturation Chloride 108 H Glucose 188 H POC Glucose (mg/dL) Plasma Lactic Acid Isaac Calcium 7.6 L AST 71 H Total Protein 5.3 L Albumin 2.7 L 10/23/20 10/23/20 10/23/20 04:58 06:05 09:20 WBC RBC Hgb Hct MCHC Neutrophils # Lymphocytes # PT INR APTT ABG pH 7.28 L ABG pCO2 ABG pO2 ABG O2 Saturation Chloride Glucose POC Glucose (mg/dL) 282 H 313 H Plasma Lactic Acid Isaac Calcium AST Total Protein Albumin - Diagnostic Findings Chest x-ray: image reviewed Assessment and Plan Assessment: Acute hypoxemic respiratory failure, likely secondary to COPD exacerbation, right upper lobe pneumonia, and hemoptysis, requiring intubation and mechanical ventilation on October 23. History of hypertension. History of chronic atrial fibrillation. History of hypothyroidism. Prior history of tobacco use. Rule out COPD. Plan: Plan dated 10/23/2020. The patient's fentanyl, and Versed drip, will be discontinued in favor of propofol. We also will discontinue the vasopressin, use norepinephrine as primary blood pressure support. An art line was placed. The patient is maintained on D5 half-normal saline 100 mL an hour. Tube feedings will be started. Labs will be reviewed. We'll make sure that the patient's on albuterol sulfate and ipratropium updrafts every 4 hours. Additional recommendations and suggestions are forthcoming. Prognosis is guarded. Time with Patient: Greater than 30
[2020-10-23] MEDS ORDERED: SODIUM CHLORIDE 0.9% 2,000 ML IV ONE (09:45)
--- NOTE | 2020-10-23 10:50 | ECHOF ---
Referral Reason:afib MEASUREMENTS -------- HEIGHT: 182.9 cm WEIGHT: 56.7 kg BP: 133/89 RVIDd: 2.5 cm (< 3.3) IVSd: 1.0 cm (0.6 - 1.1) LVIDd: 5.2 cm (3.9 - 5.3) LVPWd: 1.1 cm (0.6 - 1.1) IVSs: 1.5 cm LVIDs: 3.7 cm LVPWs: 1.3 cm LA Diam: 3.1 cm (2.7 - 3.8) LAESV Index (A-L): 25.22 ml/m Ao Diam: 3.2 cm (2.0 - 3.7) AV Cusp: 1.9 cm (1.5 - 2.6) MV EXCURSION: 18.547 mm (> 18.000) MV EF SLOPE: 269 mm/s (70 - 150) EPSS: 1.4 cm RAP: 15.00 mmHg RVSP: 44.20 mmHg FINDINGS -------- Resting tachycardia (HR>100bpm). This was a technically difficult study with suboptimal views. The left ventricular size is normal. Left ventricular wall thickness is normal. Overall left vent ricular systolic function is severely impaired with, an EF between 25 - 30 %. The right ventricle is normal in size. The left atrium is normal in size. The right atrium is normal in size. 5 ml of Lumason was utilized for enhancement of images. Interatrial and interventricular septum intact. There is mild aortic valve sclerosis. The mitral valve is normal. Mild mitral regurgitation is present. Mild tricuspid regurgitation present. There is mild pulmonary hypertension. The right ventricular systolic pressure, as measured by Doppler, is 44.20mmHg. The pulmonic valve was not well visualized. The aortic root size is normal. The inferior vena cava is dilated with no significant inspiratory collapse which is consistent estima corbin right atrial pressure of >15 mmHg. There is no pericardial effusion. CONCLUSIONS -------- 1. This was a technically difficult study with suboptimal views. 2. The left ventricular size is normal. 3. Left ventricular wall thickness is normal. 4. Overall left ventricular systolic function is severely impaired with, an EF between 25 - 30 %. 5. 5 ml of Lumason was utilized for enhancement of images. 6. There is mild aortic valve sclerosis. 7. The mitral valve is normal. 8. Mild mitral regurgitation is present. 9. Mild tricuspid regurgitation present. 10. There is mild pulmonary hypertension. 11. The right ventricular systolic pressure, as measured by Doppler, is 44.20mmHg. 12. The inferior vena cava is dilated with no significant inspiratory collapse which is consistent es timated right atrial pressure of >15 mmHg. 13. There is no pericardial effusion. HEALTH AND SAFETY TECH: Britni Gant RDCS
[2020-10-23] MEDS: IPRATROPIUM-ALBUTEROL 3 ML NEB INHALATION SCH ×3 (11:07→20:28)
[2020-10-23 11:49] LABS: Glucose,Whole Blood 294 mg/dL (75-99)
[2020-10-23] MEDS: CHLORHEXIDINE GLUCONATE 15 ML CUP MUCOUS MEM SCH ×2 (12:02→20:10)
--- NOTE | 2020-10-23 12:22 | CONS ---
CONSULTATION Mr. Cueva is a 75-year-old male who has a history of chronic persistent atrial fibrillation, has been coughing up blood, came into the emergency room, was quite dyspneic and required mechanical ventilation. Reviewing the records in the emergency room, apparently he has been having hemoptysis for the last few days and progressive dyspnea. He became more dyspneic in the emergency room and became hypotensive and subsequently was intubated. He remains intubated at this point, prior history is not clear. Apparently, the patient has seen Dr. Chino in the past, but I do not have details of his office records at this point. He has been anticoagulated, so I am assuming he has chronic persistent atrial fibrillation. His medication at home included Coumadin, levothyroxine, and metoprolol. REVIEW OF SYSTEMS: Review of systems could not be obtained. PHYSICAL EXAMINATION: 75-year-old male, intubated, sedated. Blood pressure 133/80 with a heart rate in the 110s to 120s. He was hypotensive earlier. HEAD: Normocephalic. EYES: Sclerae anicteric. NECK: No bruit noted. IJ catheter noted. LUNGS: With no wheezes or crackles anteriorly. HEART: Irregular regular S1, S2. No S3. No rub. ABDOMEN: Soft, positive bowel sounds, no organomegaly. EXTREMITIES: No significant edema. LAB DATA: EKG revealed atrial fibrillation with rapid ventricular response and evidence consistent with anteroseptal myocardial infarction, left axis deviation, nonspecific ST- T wave changes. His chest x-ray shows bilateral upper lobe disease. IMPRESSION: 1. Respiratory failure with hemoptysis. The patient has been anticoagulated at home. It is unclear if he has other underlying pulmonary issue. On presentation, his INR was 3.7. 2. Atrial fibrillation appears to be persistent. 3. Possible pneumonia. RECOMMENDATION: From the cardiac standpoint, I will start him back on a beta yelitza at 25 mg twice a day with metoprolol. I will obtain echocardiogram with Doppler. I will try to obtain the records from the office to get a better understanding of his prior history. Depending on his progress, further recommendation will be made. Thank you for this consult. We will follow with you. MMODL / IJN: [id number] /
--- NOTE | 2020-10-23 15:12 | P.HPIM ---
History of Present Illness Patient is a 75-year-old the female came in with the hemoptysis. Patient has history of atrial fibrillation for which patient is on Coumadin. Patient had INR of 3.7 and patient. Patient has a negative d-dimer at that time. Patient is also found to be in acute hypercapnic respiratory failure does have history of COPD patient was subsequently intubated. Patient had a chest x-ray which showed right upper lobe infiltrate. Patient doesn't have any fever does have leukocytosis patient was subsequently started on Rocephin and azithromycin and on systemic steroids and patient has mild hyperchloremia because of which patient is on half-normal saline patient is also on epinephrine patient does have history of atrial fibrillation presently in atrial fibrillation with rapid ventricular rate for which patient is on metoprolol. Current ventilator settings are tidal volume of 400 FiO2 40% PEEP of 5 set up respiratory of 20 pat ient is on propofol sedation at this time. REVIEW OF SYSTEMS: Unable to obtain due to her clinical condition PHYSICAL EXAMINATION: GENERAL: The patient is intubated sedated, not in any acute distress. Well developed, well nourished. HEENT: Pupils are round and equally reacting to light. EOMI. No scleral icterus. No conjunctival pallor. Normocephalic, atraumatic. No pharyngeal erythema. No thyromegaly. CARDIOVASCULAR: S1 and S2 present. No murmurs, rubs, or gallops. PULMONARY: Bilateral diffuse rhonchi along with expiratory wheezing ABDOMEN: Soft, nontender, nondistended, normoactive bowel sounds. No palpable organomegaly. MUSCULOSKELETAL: No joint swelling or deformity. EXTREMITIES: No cyanosis, clubbing, or pedal edema. NEUROLOGICAL: Patient is sedated at this time. SKIN: No rashes. Assessment and plan -Acute hypoxic respiratory failure secondary to COPD exacerbation which was precipitated by triple upper lobe pneumonia patient will be continued on systemic steroids along with inhalational treatments continue with Rocephin and azithromycin. -Septic shock secondary to pneumonia right upper lobe patient will continued on above-mentioned antibiotics and above-mentioned IV fluids -History of chronic atrial fibrillation presently left ventricular rate patient is in metoprolol which will be continued Coumadin is being held because of hemoptysis -Hemoptysis secondary to Coumadin and bronchitis and pneumonia. 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 History of Any Multi-Drug Resistant Organisms: None Reported Additional Past Surgical History / Comment(s): EGD Past Psychological History: No Psychological Hx Reported Smoking Status: Former smoker Past Alcohol Use History: None Reported Past Drug Use History: None Reported Medications and Allergies Home Medications Medication Instructions Recorded Confirmed Type Levothyroxine Sodium 25 mcg PO DAILY 10/22/20 10/22/20 History Metoprolol Tartrate [Lopressor] 50 mg PO HS 10/22/20 10/22/20 History Metoprolol Tartrate [Lopressor] 100 mg PO DAILY@1200 10/22/20 10/22/20 History Metoprolol Tartrate [Lopressor] 150 mg PO DAILY@0900 10/22/20 10/22/20 History Warfarin Sodium 2.5 mg PO TUSA 10/22/20 10/23/20 History Warfarin [Coumadin] 5 mg PO SUMOWEFR 10/23/20 10/23/20 History Allergies Allergy/AdvReac Type Severity Reaction Status Date / Time No Known Allergies Allergy Verified 10/22/20 22:04 Physical Exam Vitals: Vital Signs Temp Pulse Resp BP Pulse Ox 10/23/20 15:04 101 H 10/23/20 14:00 101 H 13 100 10/23/20 13:45 106 H 10 L 99 10/23/20 13:30 100 20 98 10/23/20 13:15 100 20 124/92 98 10/23/20 13:00 91 20 98 10/23/20 12:45 112 H 20 98 10/23/20 12:30 92 20 99 10/23/20 12:15 116 H 20 98 10/23/20 12:00 97.5 F L 105 H 20 134/92 95 10/23/20 11:45 91 20 126/95 96 10/23/20 11:30 96 20 124/88 95 10/23/20 11:15 95 20 154/96 95 10/23/20 11:07 99 10/23/20 11:00 93 202 H 161/106 94 L 10/23/20 10:45 96 20 150/106 93 L 10/23/20 10:30 107 H 20 112/101 95 10/23/20 10:15 122 H 20 113/96 94 L 10/23/20 10:00 124 H 20 150/124 94 L 10/23/20 09:45 122 H 20 67/50 95 10/23/20 09:30 128 H 20 142/102 93 L 10/23/20 09:15 125 H 20 157/118 91 L 10/23/20 09:00 124 H 20 116/106 10/23/20 08:45 112 H 20 117/99 96 10/23/20 08:30 121 H 20 114/92 97 10/23/20 08:15 125 H 20 136/80 96 10/23/20 08:00 97.6 F 128 H 20 132/86 96 10/23/20 07:45 123 H 15 128/109 96 10/23/20 07:30 123 H 16 117/93 97 10/23/20 07:15 123 H 19 117/93 99 10/23/20 07:00 105 H 12 133/89 98 10/23/20 06:30 137 H 15 108/71 98 10/23/20 06:00 122 H 20 115/74 97 10/23/20 05:30 130 H 20 101/76 96 10/23/20 05:00 123 H 20 100/85 97 10/23/20 04:30 124 H 20 101/87 99 10/23/20 04:00 122 H 20 112/81 98 10/23/20 03:30 97.7 F 118 H 20 108/94 99 10/23/20 03:00 120 H 50 H 86/61 95 10/23/20 02:51 80/57 10/23/20 02:45 122 H 15 90/65 95 10/23/20 02:24 97.8 F 129 H 20 87/69 96 10/23/20 02:00 124 H 20 100/79 100 10/23/20 01:35 120 H 20 82/70 100 10/23/20 01:25 117 H 20 65/52 97 10/23/20 01:15 133 H 20 65/55 100 10/23/20 01:10 126 H 20 58/48 100 10/23/20 01:00 125 H 20 61/44 97 10/23/20 00:55 129 H 20 56/39 99 10/23/20 00:47 20 66/49 98 10/23/20 00:35 77/39 10/23/20 00:31 131 H 14 99 10/23/20 00:17 142 H 14 82/60 100 10/23/20 00:00 142 H 14 85/73 100 10/22/20 23:45 142 H 14 84/66 100 10/22/20 23:40 142 H 14 75/49 100 10/22/20 23:35 147 H 14 83/43 100 10/22/20 23:30 147 H 14 82/50 100 10/22/20 23:20 154 H 14 98/78 100 10/22/20 23:15 154 H 14 74/42 100 10/22/20 23:00 147 H 14 83/67 100 10/22/20 22:55 154 H 14 85/71 100 10/22/20 22:50 160 H 14 129/67 100 10/22/20 22:46 149 H 10/22/20 22:30 154 H 73/60 10/22/20 22:25 68/28 10/22/20 22:20 78/64 10/22/20 22:15 137 H 115/76 76 L 10/22/20 22:06 146 H 10/22/20 22:00 154 H 114/74 80 L 10/22/20 21:24 97.8 F 122 H 22 121/83 90 L Intake and Output 10/23/20 10/23/20 10/23/20 06:59 14:59 22:59 Intake Total 996.012 0630.105 Output Total 175 205 Balance 700.620 8827.105 Intake: IV 300 800 Dextrose 5%-0.45% NaCl 1, 300 800 000 ml @ 100 mls/hr IV . Q10H [facility] Rx#:[id number] Intake, IV Titration 57.018 2187.105 Amount Magnesium Sulfate-D5w Pmx 100 1 gm In Dextrose/Water 1 100ml.bag @ 100 mls/hr IVPB Q1H [facility] Rx#: [id number] Midazolam HCl 50 mg In 7.284 Sodium Chloride 0.9% 40 ml @ 1 MG/HR 1 mls/hr IV .Q24H [facility] Rx#:[id number] Norepinephrine 32 mg In 6.211 31.789 Sodium Chloride 0.9% 218 ml @ 0.05 MCG/KG/MIN 1.33 mls/hr IV .Q24H [facility] Rx#: [id number] Norepinephrine 4 mg In 50.807 Sodium Chloride 0.9% 250 ml @ 0.05 MCG/KG/MIN 10. 81 mls/hr IV .[id number] [facility] Rx#:[id number] Sodium Chloride 0.9% 2, 2000 000 ml @ 999 mls/hr IV . Q2H1M [facility] Rx#:[id number] fentaNYL (PF). 1,000 mcg 38.016 In Sodium Chloride 0.9% 80 ml @ Per Protocol IV . Q0M [facility] Rx#:[id number] propofoL 1,000 mg In 10.016 Empty Bag 1 bag @ Titrate IV .Q0M [facility] Rx#: [id number] Output: Urine 175 205 Other: Voiding Method Indwelling Catheter Indwelling Catheter Weight 56.744 kg ABP, PAP, CO, CI - Last 8 Hours Arterial Blood Pressure 117/70 Arterial Blood Pressure 96/64 Arterial Blood Pressure 126/72 Arterial Blood Pressure 129/66 Arterial Blood Pressure 124/70 Arterial Blood Pressure 129/74 Arterial Blood Pressure 118/67 Arterial Blood Pressure 137/74 Arterial Blood Pressure 133/73 Arterial Blood Pressure 145/78 Arterial Blood Pressure 131/73 Arterial Blood Pressure 113/68 Arterial Blood Pressure 165/97 Arterial Blood Pressure 166/92 Arterial Blood Pressure 153/80 Arterial Blood Pressure 131/73 Arterial Blood Pressure 118/77 Arterial Blood Pressure 80/46 Arterial Blood Pressure 69/43 Arterial Blood Pressure 132/78 Arterial Blood Pressure 143/88 Results CBC & Chem 7: 10/23/20 04:08 10/23/20 04:08 Labs: Abnormal Lab Results - Last 24 Hours (Table) 10/22/20 10/22/20 10/22/20 Range/Units 22:08 22:08 22:08 WBC (3.8-10.6) k/uL RBC 4.09 L (4.30-5.90) m/uL Hgb 12.5 L (13.0-17.5) gm/dL Hct (39.0-53.0) % MCHC (31.0-37.0) g/dL Neutrophils # (1.3-7.7) k/uL Lymphocytes # (1.0-4.8) k/uL PT 35.4 H (9.0-12.0) sec INR 3.7 H (<1.2) APTT 34.4 H (22.0-30.0) sec ABG pH (7.35-7.45) ABG pCO2 (35-45) mmHg ABG pO2 (83-108) mmHg ABG O2 Saturation (94-97) % Chloride (98-107) mmol/L Glucose 138 H (74-99) mg/dL POC Glucose (mg/dL) (75-99) mg/dL Plasma Lactic Acid Isaac (0.7-2.0) mmol/L Calcium (8.4-10.2) mg/dL AST (17-59) U/L Total Protein (6.3-8.2) g/dL Albumin (3.5-5.0) g/dL 10/22/20 10/22/20 10/23/20 Range/Units 22:08 23:41 03:27 WBC (3.8-10.6) k/uL RBC (4.30-5.90) m/uL Hgb (13.0-17.5) gm/dL Hct (39.0-53.0) % MCHC (31.0-37.0) g/dL Neutrophils # (1.3-7.7) k/uL Lymphocytes # (1.0-4.8) k/uL PT (9.0-12.0) sec INR (<1.2) APTT (22.0-30.0) sec ABG pH 7.21 L (7.35-7.45) ABG pCO2 55 H (35-45) mmHg ABG pO2 >400 H (83-108) mmHg ABG O2 Saturation 99.3 H (94-97) % Chloride (98-107) mmol/L Glucose (74-99) mg/dL POC Glucose (mg/dL) 201 H (75-99) mg/dL Plasma Lactic Acid Isaac 2.6 H* (0.7-2.0) mmol/L Calcium (8.4-10.2) mg/dL AST (17-59) U/L Total Protein (6.3-8.2) g/dL Albumin (3.5-5.0) g/dL 10/23/20 10/23/20 10/23/20 Range/Units 04:08 04:08 04:08 WBC 12.6 H (3.8-10.6) k/uL RBC 3.57 L (4.30-5.90) m/uL Hgb 10.7 L (13.0-17.5) gm/dL Hct 35.5 L (39.0-53.0) % MCHC 30.2 L (31.0-37.0) g/dL Neutrophils # 11.5 H (1.3-7.7) k/uL Lymphocytes # 0.6 L (1.0-4.8) k/uL PT 29.6 H (9.0-12.0) sec INR 3.1 H (<1.2) APTT (22.0-30.0) sec ABG pH (7.35-7.45) ABG pCO2 (35-45) mmHg ABG pO2 (83-108) mmHg ABG O2 Saturation (94-97) % Chloride 108 H (98-107) mmol/L Glucose 188 H (74-99) mg/dL POC Glucose (mg/dL) (75-99) mg/dL Plasma Lactic Acid Isaac (0.7-2.0) mmol/L Calcium 7.6 L (8.4-10.2) mg/dL AST 71 H (17-59) U/L Total Protein 5.3 L (6.3-8.2) g/dL Albumin 2.7 L (3.5-5.0) g/dL 10/23/20 10/23/20 10/23/20 Range/Units 04:58 06:05 09:20 WBC (3.8-10.6) k/uL RBC (4.30-5.90) m/uL Hgb (13.0-17.5) gm/dL Hct (39.0-53.0) % MCHC (31.0-37.0) g/dL Neutrophils # (1.3-7.7) k/uL Lymphocytes # (1.0-4.8) k/uL PT (9.0-12.0) sec INR (<1.2) APTT (22.0-30.0) sec ABG pH 7.28 L (7.35-7.45) ABG pCO2 (35-45) mmHg ABG pO2 (83-108) mmHg ABG O2 Saturation (94-97) % Chloride (98-107) mmol/L Glucose (74-99) mg/dL POC Glucose (mg/dL) 282 H 313 H (75-99) mg/dL Plasma Lactic Acid Isaac (0.7-2.0) mmol/L Calcium (8.4-10.2) mg/dL AST (17-59) U/L Total Protein (6.3-8.2) g/dL Albumin (3.5-5.0) g/dL 10/23/20 Range/Units 11:48 WBC (3.8-10.6) k/uL RBC (4.30-5.90) m/uL Hgb (13.0-17.5) gm/dL Hct (39.0-53.0) % MCHC (31.0-37.0) g/dL Neutrophils # (1.3-7.7) k/uL Lymphocytes # (1.0-4.8) k/uL PT (9.0-12.0) sec INR (<1.2) APTT (22.0-30.0) sec ABG pH (7.35-7.45) ABG pCO2 (35-45) mmHg ABG pO2 (83-108) mmHg ABG O2 Saturation (94-97) % Chloride (98-107) mmol/L Glucose (74-99) mg/dL POC Glucose (mg/dL) 294 H (75-99) mg/dL Plasma Lactic Acid Isaac (0.7-2.0) mmol/L Calcium (8.4-10.2) mg/dL AST (17-59) U/L Total Protein (6.3-8.2) g/dL Albumin (3.5-5.0) g/dL
[2020-10-23 17:16] LABS: Glucose,Whole Blood 199 mg/dL (75-99)
--- NOTE | 2020-10-23 19:19 | PCN ---
PROCEDURE NOTE PROCEDURE PERFORMED: Right radial art line. PREOP DIAGNOSIS: Frequent blood draws and blood gas monitoring. POSTOP DIAGNOSIS: Frequent blood draws and blood gas monitoring. QUALITY AND RELIABILITY ENGINEER: Dr. Myriam Frederick. ARTERIAL LINE PLACEMENT: Indications: Hemodynamic monitoring. A time-out was completed verifying correct patient, procedure, site, positioning, and implant(s) or special equipment if applicable. Lucho's test was performed to ensure adequate perfusion. The patient's right wrist was prepped and draped in sterile fashion. 1% Lidocaine was used to anesthetize the area. An 18G Arrow arterial line was introduced into the radial artery. The catheter was threaded over the guide wire and the needle was removed with appropriate pulsatile blood return. Blood loss was minimal. The catheter was then sutured in place to the skin and a sterile dressing applied. Perfusion to the extremity distal to the point of catheter insertion was checked and found to be adequate. The patient tolerated the procedure well and there were no complications. The right radial art site was used. There was no immediate complication. The catheter was sutured in place. A sterile dressing was applied by the nurse. The patient tolerated the procedure well. There was no complication. MMODL / IJN: [id number] /
--- NOTE | 2020-10-23 21:27 | XR ---
EXAMINATION: XR chest 1V portable DATE AND TIME: 10/23/2020 9:21 PM CLINICAL INDICATION: PHH; OG placement TECHNIQUE: Semiupright portable AP COMPARISON: 10/23/2020 FINDINGS: ET tube tip mid trachea the level of the clavicular heads. NG tube present, coursing over the expected position of the thoracic esophagus and looped over the ga stric fundus. EKG leads. Right apical pleural capping redemonstrated. Widespread bilateral coarse interstitial pattern redemon strated. No evidence of pneumothorax or pleural effusion. The cardiac silhouette is not enlarged. The skeletal structures and soft tissues are negative for acute findings. IMPRESSION: NG tube placement.
[2020-10-23] MEDS: AZITHROMYCIN 500 MG in SODIUM CHLORIDE 0.9% 250 ML IVPB SCH (21:45)
[2020-10-23 23:14] LABS: Glucose,Whole Blood 113 mg/dL (75-99)
[2020-10-24] MEDS: IPRATROPIUM-ALBUTEROL 3 ML NEB INHALATION SCH ×7 (00:29→23:38)
[2020-10-24] MEDS: NOREPINEPHRINE 32 MG in SODIUM CHLORIDE 0.9% 218 ML IV SCH (00:53)
[2020-10-24] MEDS ORDERED: DILTIAZEM DRIP BOLUS FROM BAG 1 MG SOLN IV ONE (02:34)
[2020-10-24] MEDS ORDERED: DILTIAZEM 125 MG in SODIUM CHLORIDE 0.9% 100 ML IV SCH (03:00)
[2020-10-24 04:14] LABS: ALT 76 U/L (4-49); AST 83 U/L (17-59); African American GFR (CKD) >90 (>60 ml/min/1.73 sqM); Albumin 2.7 g/dL (3.5-5.0); Alkaline Phosphatase 93 U/L (38-126); Anion Gap 7 mmol/L; Blood Urea Nitrogen 15 mg/dL (9-20); Carbon Dioxide 23 mmol/L (22-30); Chloride 111 mmol/L (98-107); Glucose 74 mg/dL (74-99); Magnesium 2.1 mg/dL (1.6-2.3); Non-African American GFR(CKD) >90 (>60 ml/min/1.73 sqM); Phosphorus 2.6 mg/dL (2.5-4.5); Potassium 3.7 mmol/L (3.5-5.1); Sodium 141 mmol/L (137-145); Total Bilirubin 0.1 mg/dL (0.2-1.3); Total Protein 5.4 g/dL (6.3-8.2)
[2020-10-24 04:31] LABS: INR 1.2 (<1.2); Prothrombin Time 12.3 sec (9.0-12.0)
[2020-10-24] MEDS ORDERED: POTASSIUM CHLORIDE 20 MEQ in WATER FOR INJECTION 1 100ML.BAG IVPB STA (04:37)
[2020-10-24 04:48] LABS: Basophils % (A) 0 %; Eosinophils % (A) 0 %; HCT 32.4 % (39.0-53.0); HGB 10.3 gm/dL (13.0-17.5); Lymphocytes % (A) 6 %; MCH 30.6 pg (25.0-35.0); MCHC 31.9 g/dL (31.0-37.0); MCV 96.1 fL (80.0-100.0); Mean Platelet Volume 7.7; Monocytes # (A) 0.8 k/uL (0-1.0); Monocytes % (A) 4 %; Neutrophils # (A) 15.2 k/uL (1.3-7.7); Neutrophils % (A) 89 %; Platelet Count 347 k/uL (150-450); RBC 3.37 m/uL (4.30-5.90); RDW 14.3 % (11.5-15.5); WBC 17.1 k/uL (3.8-10.6)
[2020-10-24] MEDS: methylPREDNISolone SOD SUCCI 125 MG/2 ML VIAL IV SCH (05:07)
[2020-10-24] MEDS: INSULIN ASPART (NovoLOG) 100 UNIT/ML VIAL SQ SCH ×3 (05:19→18:09)
[2020-10-24 05:23] LABS: ABG Base Excess -2.3 mmol/L; ABG HCO3 23 mmol/L (21-25); ABG Oxygen Saturation 98.3 % (94-97); ABG PCO2 40 mmHg (35-45); ABG PH 7.37 (7.35-7.45); ABG PO2 110 mmHg (83-108); ABG TCO2 24 mmol/L (19-24); Allen Test Performed? Yes
[2020-10-24 05:29] LABS: Glucose,Whole Blood 108 mg/dL (75-99)
[2020-10-24] MEDS ORDERED: HEPARIN SODIUM 1,000 UN/ML (10ML VL) IV ONE (07:40)
[2020-10-24] MEDS ORDERED: HEPARIN SODIUM 1,000 UN/ML (10ML VL) IV PRN (07:40)
[2020-10-24] MEDS ORDERED: SODIUM CHLORIDE 0.9% 2,000 ML IV ONE (08:30)
[2020-10-24 08:39] LABS: Basophils % (A) 0 %; Eosinophils % (A) 0 %; HCT 31.7 % (39.0-53.0); HGB 10.3 gm/dL (13.0-17.5); Lymphocytes # (A) 0.6 k/uL (1.0-4.8); Lymphocytes % (A) 4 %; MCH 30.8 pg (25.0-35.0); MCHC 32.5 g/dL (31.0-37.0); MCV 94.7 fL (80.0-100.0); Mean Platelet Volume 8.5; Monocytes # (A) 0.7 k/uL (0-1.0); Monocytes % (A) 4 %; Neutrophils # (A) 16.7 k/uL (1.3-7.7); Neutrophils % (A) 92 %; Platelet Count 315 k/uL (150-450); RBC 3.35 m/uL (4.30-5.90); RDW 13.7 % (11.5-15.5); WBC 18.2 k/uL (3.8-10.6)
[2020-10-24 08:47] LABS: INR 1.2 (<1.2); Partial Thromboplastin Time 23.8 sec (22.0-30.0); Prothrombin Time 12.1 sec (9.0-12.0)
[2020-10-24] MEDS: PANTOPRAZOLE 40 MG/10 ML VIAL IV SCH (08:49)
[2020-10-24] MEDS: CHLORHEXIDINE GLUCONATE 15 ML CUP MUCOUS MEM SCH ×2 (08:49→20:01)
[2020-10-24] MEDS: HEPARIN SOD,PORK IN 0.45% NACL 25,000 UNIT in 0.45% NACL 1 250ML.BAG IV SCH (08:51)
[2020-10-24] MEDS: METOPROLOL TARTRATE 50 MG TAB PO SCH ×2 (09:00→20:02)
[2020-10-24] MEDS ORDERED: FUROSEMIDE 10 MG/ML 2 ML VIAL IV SCH (09:00)
--- NOTE | 2020-10-24 09:01 | PN ---
PROGRESS NOTE Mr. Cueva is a 75-year-old male who has a history of atrial fibrillation, who presented with progressive dyspnea and hemoptysis requiring mechanical ventilation. He remains intubated, sedated. He continues to be in atrial fibrillation, had an episode of rapid ventricular response. He had an echocardiogram that showed a severely impaired left ventricle systolic function, ejection fraction 25-30% with mild mitral and tricuspid regurgitation and mild pulmonary hypertension. He has been treated for pneumonia. He was started last night on IV Cardizem because of his rapid ventricular response. He continued on her metoprolol tartrate 25 mg twice a day. He is off the Coumadin. INR is down to 1.2. PHYSICAL EXAMINATION: VITAL SIGNS: Blood pressure running in the 100s with a heart rate in the 90s. LUNGS: With decreased breath sounds anteriorly, no wheezes. HEART: Irregularly irregular, S1, S2. No S3. No rub appreciated. ABDOMEN: Soft. Positive bowel sounds. No organomegaly. EXTREMITIES: No edema. LAB DATA: Lab data revealed a hemoglobin of 10.3, white blood cell of 17.1. BUN and creatinine 15 and 0.54. His AST is 83, ALT is 76. PH 7.37. His PO2 is 110. IMPRESSION: 1. Respiratory failure with pneumonia and hemoptysis. 2. Atrial fibrillation persistent. 3. Severe cardiomyopathy. RECOMMENDATION: Stop the IV Cardizem. I will increase the dose of his beta yelitza. I will start him on heparin because of the atrial fibrillation. I will give him one dose of IV Lasix. We will follow his renal function and depending on his progress further recommendation will be made. MMODL / IJN: [id number] /
--- NOTE | 2020-10-24 09:02 | XR ---
EXAMINATION TYPE: XR chest 1V DATE OF EXAM: 10/24/2020 COMPARISON: 10/23/2020 HISTORY: Respiratory failure TECHNIQUE: Single frontal view of the chest is obtained. FINDINGS: Lines and tubes appear similar to the prior examination. Right upper airspace disease and right greater than left biapical thickening appears similar to the p rior examination. The lungs are hyperinflated with prominence of the interstitium which is most consistent with chronic underlying lung disease such as COPD. Cardiac silhouette is unchanged. IMPRESSION: No significant change since the prior exam.
--- NOTE | 2020-10-24 10:59 | P.PN ---
Subjective Progress Note Date: 10/24/20 Principal diagnosis: Respiratory failure. Pulmonary consult dated 10/23/2020. 75-year-old male who looks much older than his stated age, who apparently came in for coughing up blood. The patient apparently has a history of chronic atrial fibrillation for which she takes Coumadin. Apparently over the last few days, the patient began coughing up blood. On the day of admission to the emergency room, this became much more significant which is why he came in. In addition, he was apparently short of breath. He also apparently has been not eating, and she has been feeling generally ill. Patient apparently was in significant respiratory distress when he was seen in the emergency room, and eventually, because of respiratory compromise and failure, the patient was intubated and mechanically ventilated. He has a history of hypertension, atrial fibrillation, and hypothyroidism. His current ventilator settings include the volume assist control, rate of 20, tidal volume 400, FiO2 40%, and PEEP of 5. Blood gases on those settings pO2 of 90, pCO2 45, and pH is 7.28. The patient's on D5 and half-normal saline at 100 mL an hour, vasopressin at 0.03 units per minute, norepinephrine at 0.13 mcg/kg/m, first set at 1 mg an hour, and fentanyl at 1 mcg/kg/h. The patient's chest x-ray does show an infiltrate in the right upper lobe. White count 12.6, hemoglobin 10.7, hematocrit 35.5, platelet count 387,000. PTT 29.6, INR 3.1, sodium 139, potassium 4.8, chlorides 108, CO2 23, anion gap 8, BUN 20, creatinine 0.95, and a calcium of 7.6. Progress note dated 10/24/2020. 75-year-old male, who was admitted to the emergency department, for respiratory failure, right upper lobe pneumonia, and hemoptysis. The patient does have a history of chronic atrial fibrillation for which he takes Coumadin. Apparently over the last couple of days prior to admission, the patient was complaining of hemoptysis. Apparently when he got to the emergency room, hemoptysis was much worse, and he was very short of breath, and he was intubated in the emergency department. Currently remains on the ventilator. He is on the volume assist control mode, rate 20, tidal volume 400, FiO2 40%, and PEEP of 5. Blood gases show a PaO2 of 110, PaCO2 40, and a pH is 7.37. Hence, the FiO2 was reduced by 5%. The patient's getting saline at 20 mL an hour, norepinephrine at 22 mcg/m, propofol at 35 mcg/kg/m, and Cardizem drip at 5 mg an hour. He apparently did develop atrial fibrillation overnight. Also, because he is on a high dose of norepinephrine, we'll hold off on Lasix at this time, additional fluids, to see if we can wean off the norepinephrine. In addition, we will do a daily interruption of sedation. A cortisol level will also be done. White count is 18.2, hemoglobin 10.3, hematocrit 31.7, and platelet count 315,000. PT 12.1 with an INR 1.2. Sodium 141, potassium 3.7, chlorides 111, CO2 23, anion gap 7, BUN 15, creatinine 0.54. Albumin is 2.7. Cortisol level was only 9. Chest x- ray show evidence of changes of COPD. There is right upper lobe airspace disea se. Objective - Vital Signs Vital signs: Vital Signs Temp 97.7 F 10/24/20 08:00 Pulse 126 H 10/24/20 09:00 Resp 25 H 10/24/20 09:00 BP 91/74 10/24/20 08:45 Pulse Ox 94 L 10/24/20 09:00 Intake & Output 10/23/20 10/24/20 10/24/20 18:59 06:59 18:59 Intake Total 3418.975 424.969 8711.272 Output Total 500 1105 105 Balance 2918.975 -527.271 8420.272 Weight 61.9 kg Intake: IV 1767 849 8432 .9 120 2020 Azithromycin 500 mg In 250 Sodium Chloride 0.9% 250 ml @ 250 mls/hr IVPB DAILY@2100 [facility] Rx#: [id number] Dextrose 5%-0.45% NaCl 1, 1200 400 000 ml @ 100 mls/hr IV . Q10H [facility] Rx#:[id number] cefTRIAXone 2 gm In 50 Sodium Chloride 0.9% 50 ml @ 100 mls/hr IVPB ONCE [facility] Rx#:[id number] Intake, IV Titration 2218.975 151.460 32.272 Amount Diltiazem 125 mg In 30.667 Sodium Chloride 0.9% 100 ml @ Per Protocol IV .Q0M [facility] Rx#:[id number] Magnesium Sulfate-D5w Pmx 100 1 gm In Dextrose/Water 1 100ml.bag @ 100 mls/hr IVPB Q1H [facility] Rx#: [id number] Midazolam HCl 50 mg In 7.284 Sodium Chloride 0.9% 40 ml @ 1 MG/HR 1 mls/hr IV .Q24H [facility] Rx#:[id number] Norepinephrine 32 mg In 42.350 4.907 Sodium Chloride 0.9% 218 ml @ 0.05 MCG/KG/MIN 1.33 mls/hr IV .Q24H [facility] Rx#: [id number] Norepinephrine 32 mg In 8.610 1.605 Sodium Chloride 0.9% 218 ml @ 0.05 MCG/KG/MIN 1.33 mls/hr IV .Q24H [facility] Rx#: [id number] Sodium Chloride 0.9% 2, 2000 000 ml @ 999 mls/hr IV . Q2H1M [facility] Rx#:[id number] fentaNYL (PF). 1,000 mcg 38.016 In Sodium Chloride 0.9% 80 ml @ Per Protocol IV . Q0M [facility] Rx#:[id number] propofoL 1,000 mg In 31.325 137.943 Empty Bag 1 bag @ Titrate IV .Q0M [facility] Rx#: [id number] Output: Urine 500 1105 105 Other: Voiding Method Indwelling Catheter Indwelling Catheter ABP, PAP, CO, CI - Last Documented Arterial Blood Pressure 96/46 - Exam No acute distress, sedated, looking much older than his stated age of 75, with an orally placed endotracheal tube and NG tube. HEENT examination is grossly unremarkable. Neck supple. Full range of motion. No adenopathy thyromegaly or neck vein distention. Cardiovascular examination reveals regular rhythm rate. S1-S2 normal. No S3 or S4. No discernible murmur noted. Heart rate 126. Heart sounds distant. Lungs reveal diminished bilateral breath sounds. Scattered rhonchi. No wheezes. No crackles. Breath sounds equal bilaterally. Abdomen soft bowel sounds are heard. No masses or tenderness. Extremities are intact. No cyanosis clubbing or edema. Skin is without rash or lesion. Neurologic examination could not be assessed because of his sedation with propofol. - Labs CBC & Chem 7: 10/24/20 08:28 10/24/20 03:50 Labs: Abnormal Lab Results - Last 24 Hours (Table) 10/23/20 10/23/20 10/23/20 Range/Units 04:08 11:48 17:15 WBC (3.8-10.6) k/uL RBC (4.30-5.90) m/uL Hgb (13.0-17.5) gm/dL Hct (39.0-53.0) % Neutrophils # (1.3-7.7) k/uL Lymphocytes # (1.0-4.8) k/uL PT (9.0-12.0) sec INR (<1.2) ABG pO2 (83-108) mmHg ABG O2 Saturation (94-97) % Chloride (98-107) mmol/L Creatinine (0.66-1.25) mg/dL POC Glucose (mg/dL) 294 H 199 H (75-99) mg/dL Calcium (8.4-10.2) mg/dL Total Bilirubin (0.2-1.3) mg/dL AST (17-59) U/L ALT (4-49) U/L Total Protein (6.3-8.2) g/dL Albumin (3.5-5.0) g/dL Procalcitonin 0.38 H (0.02-0.09) ng/mL 10/23/20 10/24/20 10/24/20 Range/Units 23:00 03:50 03:50 WBC 17.1 H (3.8-10.6) k/uL RBC 3.37 L (4.30-5.90) m/uL Hgb 10.3 L (13.0-17.5) gm/dL Hct 32.4 L (39.0-53.0) % Neutrophils # 15.2 H (1.3-7.7) k/uL Lymphocytes # (1.0-4.8) k/uL PT (9.0-12.0) sec INR (<1.2) ABG pO2 (83-108) mmHg ABG O2 Saturation (94-97) % Chloride 111 H (98-107) mmol/L Creatinine 0.54 L (0.66-1.25) mg/dL POC Glucose (mg/dL) 113 H (75-99) mg/dL Calcium 8.0 L (8.4-10.2) mg/dL Total Bilirubin 0.1 L (0.2-1.3) mg/dL AST 83 H (17-59) U/L ALT 76 H (4-49) U/L Total Protein 5.4 L (6.3-8.2) g/dL Albumin 2.7 L (3.5-5.0) g/dL Procalcitonin (0.02-0.09) ng/mL 10/24/20 10/24/20 10/24/20 Range/Units 03:50 05:18 05:20 WBC (3.8-10.6) k/uL RBC (4.30-5.90) m/uL Hgb (13.0-17.5) gm/dL Hct (39.0-53.0) % Neutrophils # (1.3-7.7) k/uL Lymphocytes # (1.0-4.8) k/uL PT 12.3 H (9.0-12.0) sec INR 1.2 H (<1.2) ABG pO2 110 H (83-108) mmHg ABG O2 Saturation 98.3 H (94-97) % Chloride (98-107) mmol/L Creatinine (0.66-1.25) mg/dL POC Glucose (mg/dL) 108 H (75-99) mg/dL Calcium (8.4-10.2) mg/dL Total Bilirubin (0.2-1.3) mg/dL AST (17-59) U/L ALT (4-49) U/L Total Protein (6.3-8.2) g/dL Albumin (3.5-5.0) g/dL Procalcitonin (0.02-0.09) ng/mL 10/24/20 10/24/20 Range/Units 08:28 08:28 WBC 18.2 H (3.8-10.6) k/uL RBC 3.35 L (4.30-5.90) m/uL Hgb 10.3 L (13.0-17.5) gm/dL Hct 31.7 L (39.0-53.0) % Neutrophils # 16.7 H (1.3-7.7) k/uL Lymphocytes # 0.6 L (1.0-4.8) k/uL PT 12.1 H (9.0-12.0) sec INR 1.2 H (<1.2) ABG pO2 (83-108) mmHg ABG O2 Saturation (94-97) % Chloride (98-107) mmol/L Creatinine (0.66-1.25) mg/dL POC Glucose (mg/dL) (75-99) mg/dL Calcium (8.4-10.2) mg/dL Total Bilirubin (0.2-1.3) mg/dL AST (17-59) U/L ALT (4-49) U/L Total Protein (6.3-8.2) g/dL Albumin (3.5-5.0) g/dL Procalcitonin (0.02-0.09) ng/mL Microbiology - Last 24 Hours (Table) 10/23/20 00:05 Blood Culture Gram Stain - Preliminary Blood 10/22/20 23:45 Blood Culture Gram Stain - Preliminary Blood Blood Culture - Preliminary Staphylococcus epidermidis 10/23/20 00:05 Blood Culture - Final Blood 10/22/20 23:45 Blood Culture - Final Blood Assessment and Plan Assessment: Acute hypoxemic respiratory failure, likely secondary to COPD exacerbation, right upper lobe pneumonia, and hemoptysis, requiring intubation and mechanical ventilation on October 23. Hypotension, likely secondary to sepsis and right upper lobe pneumonia. History of hypertension. History of chronic atrial fibrillation, with RVR. History of hypothyroidism. Prior history of tobacco use. Rule out COPD. Plan: Plan dated 10/23/2020. The patient's fentanyl, and Versed drip, will be discontinued in favor of propofol. We also will discontinue the vasopressin, use norepinephrine as primary blood pressure support. An art line was placed. The patient is maintained on D5 half-normal saline 100 mL an hour. Tube feedings will be started. Labs will be reviewed. We'll make sure that the patient's on albuterol sulfate and ipratropium updrafts every 4 hours. Additional recom mendations and suggestions are forthcoming. Prognosis is guarded. Plan dated 10/24/2020. The patient remains on norepinephrine at 22 mcg/m. Cardiology ordered some Lasix but will hold off for the time being and I'll give him some fluids to see if we can wean his norepinephrine down. In addition, his cortisol level was only 9. I will add hydrocortisone at stress doses, 50 mg, every 6 hours IV push. Cardiac the patient remains on Cardizem drip. FiO2 was dropped by 5% to 35%. His overall prognosis remains very guarded. A central line and art line in place. Updrafts were added every 4 hours. The patient will be started on tube feeds. Time with Patient: Greater than 30
[2020-10-24] MEDS ORDERED: HYDROCORTISONE SUCCINATE 100 MG/2 ML VIAL IV STA (11:08)
--- NOTE | 2020-10-24 11:14 | P.PN ---
Subjective Patient is a 75-year-old the female came in with the hemoptysis. Patient has history of atrial fibrillation for which patient is on Coumadin. Patient had INR of 3.7 and patient. Patient has a negative d-dimer at that time. Patient is also found to be in acute hypercapnic respiratory failure does have history of COPD patient was subsequently intubated. Patient had a chest x-ray which showed right upper lobe infiltrate. Patient doesn't have any fever does have leukocytosis patient was subsequently started on Rocephin and azithromycin and on systemic steroids and patient has mild hyperchloremia because of which patient is on half-normal saline patient is also on epinephrine patient does have history of atrial fibrillation presently in atrial fibrillation with rapid ventricular rate for which patient is on metoprolol. Current ventilator settings are tidal volume of 400 FiO2 40% PEEP of 5 set up respiratory of 20 patient is on propofol sedation at this time. 10/24/2020 Patient's hemoptysis improved INR is 1.2 today there is a suspicion that the right upper lobe infiltrate is probably a mass. Patient made some ventilator support patient the remains on the same and later settings as yesterday remains on norepinephrine at 22 mcg, is on propofol drip as well patient went into atrial fibrillation because of which patient was started on Cardizem with fluctuating blood pressures. Cortisol level was ordered as well. Review of systems unable to obtain due to his clinical condition All inpatient medications were reviewed and appropriate changes in these medications as dictated in the interval history and assessment and plan. REVIEW OF SYSTEMS: Unable to obtain due to her clinical condition PHYSICAL EXAMINATION: GENERAL: The patient is intubated sedated, not in any acute distress. Well developed, well nourished. HEENT: Pupils are round and equally reacting to light. EOMI. No scleral icterus. No conjunctival pallor. Normocephalic, atraumatic. No pharyngeal erythema. No thyromegaly. CARDIOVASCULAR: S1 and S2 present. No murmurs, rubs, or gallops. PULMONARY: Bilateral diffuse rhonchi along with expiratory wheezing ABDOMEN: Soft, nontender, nondistended, normoactive bowel sounds. No palpable organomegaly. MUSCULOSKELETAL: No joint swelling or deformity. EXTREMITIES: No cyanosis, clubbing, or pedal edema. NEUROLOGICAL: Patient is sedated at this time. SKIN: No rashes. Assessment and plan -Acute hypoxic respiratory failure secondary to COPD exacerbation which was precipitated by triple upper lobe pneumonia patient will be continued on systemic steroids along with inhalational treatments continue with Rocephin and azithromycin. -Atrial fibrillation with rapid ventricular rate patient is presently on Cardizem -Septic shock secondary to pneumonia right upper lobe patient will continued on above-mentioned antibiotics and above-mentioned IV fluids. Probable right upper lobe mass cannot be ruled out -History of chronic atrial fibrillation presently left ventricular rate patient is in metoprolol which will be continued Coumadin is being held because of hemoptysis, present INR is 1.2 -Hemoptysis secondary to Coumadin and bronchitis and pneumonia. -Hypothyroidism -COPD with acute exacerbation DVT prophylaxis: Patient has elevated INR and had hemoptysis Objective - Vital Signs Vital signs: Vital Signs Temp 97.7 F 10/24/20 08:00 Pulse 106 H 10/24/20 11:11 Resp 20 10/24/20 11:00 BP 80/61 10/24/20 10:45 Pulse Ox 95 10/24/20 11:00 Intake & Output 10/23/20 10/24/20 10/24/20 18:59 06:59 18:59 Intake Total 3418.975 276.785 1187.018 Output Total 500 1105 105 Balance 2918.975 -855.766 4281.018 Weight 61.9 kg Intake: IV 0538 217 5678 .9 120 2020 Azithromycin 500 mg In 250 Sodium Chloride 0.9% 250 ml @ 250 mls/hr IVPB DAILY@2100 [facility] Rx#: [id number] Dextrose 5%-0.45% NaCl 1, 1200 400 000 ml @ 100 mls/hr IV . Q10H [facility] Rx#:[id number] cefTRIAXone 2 gm In 50 Sodium Chloride 0.9% 50 ml @ 100 mls/hr IVPB ONCE [facility] Rx#:[id number] Intake, IV Titration 2218.975 151.460 81.018 Amount Diltiazem 125 mg In 30.667 Sodium Chloride 0.9% 100 ml @ Per Protocol IV .Q0M [facility] Rx#:[id number] Magnesium Sulfate-D5w Pmx 100 1 gm In Dextrose/Water 1 100ml.bag @ 100 mls/hr IVPB Q1H [facility] Rx#: [id number] Midazolam HCl 50 mg In 7.284 Sodium Chloride 0.9% 40 ml @ 1 MG/HR 1 mls/hr IV .Q24H [facility] Rx#:[id number] Norepinephrine 32 mg In 42.350 4.907 Sodium Chloride 0.9% 218 ml @ 0.05 MCG/KG/MIN 1.33 mls/hr IV .Q24H [facility] Rx#: [id number] Norepinephrine 32 mg In 8.610 1.605 Sodium Chloride 0.9% 218 ml @ 0.05 MCG/KG/MIN 1.33 mls/hr IV .Q24H [facility] Rx#: [id number] Sodium Chloride 0.9% 2, 2000 000 ml @ 999 mls/hr IV . Q2H1M [facility] Rx#:[id number] fentaNYL (PF). 1,000 mcg 38.016 In Sodium Chloride 0.9% 80 ml @ Per Protocol IV . Q0M [facility] Rx#:[id number] propofoL 1,000 mg In 31.325 137.943 48.746 Empty Bag 1 bag @ Titrate IV .Q0M [facility] Rx#: [id number] Output: Urine 500 1105 105 Other: Voiding Method Indwelling Catheter Indwelling Catheter Indwelling Catheter ABP, PAP, CO, CI - Last Documented Arterial Blood Pressure 100/48 - Labs CBC & Chem 7: 10/24/20 08:28 10/24/20 03:50 Labs: Abnormal Lab Results - Last 24 Hours (Table) 10/23/20 10/23/20 10/23/20 Range/Units 04:08 11:48 17:15 WBC (3.8-10.6) k/uL RBC (4.30-5.90) m/uL Hgb (13.0-17.5) gm/dL Hct (39.0-53.0) % Neutrophils # (1.3-7.7) k/uL Lymphocytes # (1.0-4.8) k/uL PT (9.0-12.0) sec INR (<1.2) ABG pO2 (83-108) mmHg ABG O2 Saturation (94-97) % Chloride (98-107) mmol/L Creatinine (0.66-1.25) mg/dL POC Glucose (mg/dL) 294 H 199 H (75-99) mg/dL Calcium (8.4-10.2) mg/dL Total Bilirubin (0.2-1.3) mg/dL AST (17-59) U/L ALT (4-49) U/L Total Protein (6.3-8.2) g/dL Albumin (3.5-5.0) g/dL Procalcitonin 0.38 H (0.02-0.09) ng/mL 10/23/20 10/24/20 10/24/20 Range/Units 23:00 03:50 03:50 WBC 17.1 H (3.8-10.6) k/uL RBC 3.37 L (4.30-5.90) m/uL Hgb 10.3 L (13.0-17.5) gm/dL Hct 32.4 L (39.0-53.0) % Neutrophils # 15.2 H (1.3-7.7) k/uL Lymphocytes # (1.0-4.8) k/uL PT (9.0-12.0) sec INR (<1.2) ABG pO2 (83-108) mmHg ABG O2 Saturation (94-97) % Chloride 111 H (98-107) mmol/L Creatinine 0.54 L (0.66-1.25) mg/dL POC Glucose (mg/dL) 113 H (75-99) mg/dL Calcium 8.0 L (8.4-10.2) mg/dL Total Bilirubin 0.1 L (0.2-1.3) mg/dL AST 83 H (17-59) U/L ALT 76 H (4-49) U/L Total Protein 5.4 L (6.3-8.2) g/dL Albumin 2.7 L (3.5-5.0) g/dL Procalcitonin (0.02-0.09) ng/mL 10/24/20 10/24/20 10/24/20 Range/Units 03:50 05:18 05:20 WBC (3.8-10.6) k/uL RBC (4.30-5.90) m/uL Hgb (13.0-17.5) gm/dL Hct (39.0-53.0) % Neutrophils # (1.3-7.7) k/uL Lymphocytes # (1.0-4.8) k/uL PT 12.3 H (9.0-12.0) sec INR 1.2 H (<1.2) ABG pO2 110 H (83-108) mmHg ABG O2 Saturation 98.3 H (94-97) % Chloride (98-107) mmol/L Creatinine (0.66-1.25) mg/dL POC Glucose (mg/dL) 108 H (75-99) mg/dL Calcium (8.4-10.2) mg/dL Total Bilirubin (0.2-1.3) mg/dL AST (17-59) U/L ALT (4-49) U/L Total Protein (6.3-8.2) g/dL Albumin (3.5-5.0) g/dL Procalcitonin (0.02-0.09) ng/mL 10/24/20 10/24/20 Range/Units 08:28 08:28 WBC 18.2 H (3.8-10.6) k/uL RBC 3.35 L (4.30-5.90) m/uL Hgb 10.3 L (13.0-17.5) gm/dL Hct 31.7 L (39.0-53.0) % Neutrophils # 16.7 H (1.3-7.7) k/uL Lymphocytes # 0.6 L (1.0-4.8) k/uL PT 12.1 H (9.0-12.0) sec INR 1.2 H (<1.2) ABG pO2 (83-108) mmHg ABG O2 Saturation (94-97) % Chloride (98-107) mmol/L Creatinine (0.66-1.25) mg/dL POC Glucose (mg/dL) (75-99) mg/dL Calcium (8.4-10.2) mg/dL Total Bilirubin (0.2-1.3) mg/dL AST (17-59) U/L ALT (4-49) U/L Total Protein (6.3-8.2) g/dL Albumin (3.5-5.0) g/dL Procalcitonin (0.02-0.09) ng/mL Microbiology - Last 24 Hours (Table) 10/23/20 00:05 Blood Culture Gram Stain - Preliminary Blood 10/22/20 23:45 Blood Culture Gram Stain - Preliminary Blood Blood Culture - Preliminary Staphylococcus epidermidis 10/23/20 00:05 Blood Culture - Final Blood 10/22/20 23:45 Blood Culture - Final Blood
[2020-10-24 11:39] LABS: Glucose,Whole Blood 170 mg/dL (75-99)
[2020-10-24 13:37] LABS: Glucose,Whole Blood 203 mg/dL (75-99)
[2020-10-24 15:42] LABS: Hemoglobin A1C 6.2 % (4.0-6.0)
[2020-10-24 18:03] LABS: Glucose,Whole Blood 197 mg/dL (75-99)
[2020-10-24] MEDS: HYDROCORTISONE SUCCINATE 100 MG/2 ML VIAL IV SCH (18:07)
[2020-10-24] MEDS: AZITHROMYCIN 500 MG in SODIUM CHLORIDE 0.9% 250 ML IVPB SCH (20:56)
[2020-10-25] MEDS: INSULIN ASPART (NovoLOG) 100 UNIT/ML VIAL SQ SCH ×5 (01:10→23:56)
[2020-10-25] MEDS: HYDROCORTISONE SUCCINATE 100 MG/2 ML VIAL IV SCH ×5 (01:11→23:56)
[2020-10-25 01:22] LABS: Glucose,Whole Blood 118 mg/dL (75-99)
[2020-10-25] MEDS: IPRATROPIUM-ALBUTEROL 3 ML NEB INHALATION SCH ×6 (03:04→23:29)
[2020-10-25 05:39] LABS: ABG Base Excess -2.6 mmol/L; ABG HCO3 23 mmol/L (21-25); ABG Oxygen Saturation 99.2 % (94-97); ABG PCO2 39 mmHg (35-45); ABG PH 7.37 (7.35-7.45); ABG PO2 166 mmHg (83-108); ABG TCO2 24 mmol/L (19-24); Allen Test Performed? Yes
[2020-10-25 05:53] LABS: Glucose,Whole Blood 150 mg/dL (75-99)
[2020-10-25 06:40] LABS: INR 1.4 (<1.2); Prothrombin Time 14.4 sec (9.0-12.0)
[2020-10-25 06:52] LABS: Basophils % (A) 0 %; Eosinophils % (A) 0 %; HCT 30.1 % (39.0-53.0); HGB 9.7 gm/dL (13.0-17.5); Lymphocytes # (A) 0.5 k/uL (1.0-4.8); Lymphocytes % (A) 3 %; MCH 30.3 pg (25.0-35.0); MCHC 32.1 g/dL (31.0-37.0); MCV 94.5 fL (80.0-100.0); Mean Platelet Volume 7.8; Monocytes # (A) 0.7 k/uL (0-1.0); Monocytes % (A) 4 %; Neutrophils # (A) 14.9 k/uL (1.3-7.7); Neutrophils % (A) 92 %; Platelet Count 350 k/uL (150-450); RBC 3.19 m/uL (4.30-5.90); RDW 14.6 % (11.5-15.5); WBC 16.2 k/uL (3.8-10.6)
[2020-10-25 07:03] LABS: African American GFR (CKD) >90 (>60 ml/min/1.73 sqM); Anion Gap 5 mmol/L; Blood Urea Nitrogen 16 mg/dL (9-20); Calcium 7.9 mg/dL (8.4-10.2); Carbon Dioxide 22 mmol/L (22-30); Chloride 113 mmol/L (98-107); Glucose 150 mg/dL (74-99); Non-African American GFR(CKD) >90 (>60 ml/min/1.73 sqM); Sodium 140 mmol/L (137-145)
--- NOTE | 2020-10-25 07:32 | PN ---
PROGRESS NOTE Mr. Cueva is a 75-year-old male who presented with hemoptysis, progressive dyspnea and was diagnosed with pneumonia. He has history of persistent atrial fibrillation. He is intubated and sedated at this time. He is in atrial fibrillation with controlled ventricular response. Hemodynamically, he is stable. His echocardiogram revealed a severely impaired left ventricle systolic function. He continues to be at this time on Zithromax. He is on IV heparin, metoprolol tartrate 50 mg twice a day, he is receiving Solu-Cortef 50 mg q.6 hours. PHYSICAL EXAMINATION: VITAL SIGNS: Heart rate controlled. Heart rate remains with episode of rapid ventricular response. LUNGS: Clear to auscultation anteriorly. HEART: Irregularly irregular S1, S2. No S3. No rub. ABDOMEN: Soft, positive bowel sounds, no organomegaly. EXTREMITIES: No edema. LAB DATA: PH 7.37, PO2 is 166. IMPRESSION: 1. Respiratory failure with pneumonia and hemoptysis. 2. Persistent chronic atrial fibrillation. Patient was anticoagulated with Coumadin on presentation. 3. Hypotension. 4. Cardiomyopathy. RECOMMENDATION: We will continue supportive care. His diuretics have been on hold. We will follow his renal function and adjust his medication depending on his heart rate and blood pressure. The prognosis remains guarded. MMODL / IJN: [id number] /
[2020-10-25] MEDS: PANTOPRAZOLE 40 MG/10 ML VIAL IV SCH (08:51)
[2020-10-25] MEDS: METOPROLOL TARTRATE 50 MG TAB PO SCH ×2 (08:51→21:35)
[2020-10-25] MEDS: CHLORHEXIDINE GLUCONATE 15 ML CUP MUCOUS MEM SCH ×2 (08:51→21:37)
[2020-10-25] MEDS: NOREPINEPHRINE 32 MG in SODIUM CHLORIDE 0.9% 218 ML IV SCH (09:31)
--- NOTE | 2020-10-25 09:32 | P.PN ---
Subjective Progress Note Date: 10/25/20 Principal diagnosis: Respiratory failure. Pulmonary consult dated 10/23/2020. 75-year-old male who looks much older than his stated age, who apparently came in for coughing up blood. The patient apparently has a history of chronic atrial fibrillation for which she takes Coumadin. Apparently over the last few days, the patient began coughing up blood. On the day of admission to the emergency room, this became much more significant which is why he came in. In addition, he was apparently short of breath. He also apparently has been not eating, and she has been feeling generally ill. Patient apparently was in significant respiratory distress when he was seen in the emergency room, and eventually, because of respiratory compromise and failure, the patient was intubated and mechanically ventilated. He has a history of hypertension, atrial fibrillation, and hypothyroidism. His current ventilator settings include the volume assist control, rate of 20, tidal volume 400, FiO2 40%, and PEEP of 5. Blood gases on those settings pO2 of 90, pCO2 45, and pH is 7.28. The patient's on D5 and half-normal saline at 100 mL an hour, vasopressin at 0.03 units per minute, norepinephrine at 0.13 mcg/kg/m, first set at 1 mg an hour, and fentanyl at 1 mcg/kg/h. The patient's chest x-ray does show an infiltrate in the right upper lobe. White count 12.6, hemoglobin 10.7, hematocrit 35.5, platelet count 387,000. PTT 29.6, INR 3.1, sodium 139, potassium 4.8, chlorides 108, CO2 23, anion gap 8, BUN 20, creatinine 0.95, and a calcium of 7.6. Progress note dated 10/24/2020. 75-year-old male, who was admitted to the emergency department, for respiratory failure, right upper lobe pneumonia, and hemoptysis. The patient does have a history of chronic atrial fibrillation for which he takes Coumadin. Apparently over the last couple of days prior to admission, the patient was complaining of hemoptysis. Apparently when he got to the emergency room, hemoptysis was much worse, and he was very short of breath, and he was intubated in the emergency department. Currently remains on the ventilator. He is on the volume assist control mode, rate 20, tidal volume 400, FiO2 40%, and PEEP of 5. Blood gases show a PaO2 of 110, PaCO2 40, and a pH is 7.37. Hence, the FiO2 was reduced by 5%. The patient's getting saline at 20 mL an hour, norepinephrine at 22 mcg/m, propofol at 35 mcg/kg/m, and Cardizem drip at 5 mg an hour. He apparently did develop atrial fibrillation overnight. Also, because he is on a high dose of norepinephrine, we'll hold off on Lasix at this time, additional fluids, to see if we can wean off the norepinephrine. In addition, we will do a daily interruption of sedation. A cortisol level will also be done. White count is 18.2, hemoglobin 10.3, hematocrit 31.7, and platelet count 315,000. PT 12.1 with an INR 1.2. Sodium 141, potassium 3.7, chlorides 111, CO2 23, anion gap 7, BUN 15, creatinine 0.54. Albumin is 2.7. Cortisol level was only 9. Chest x- ray show evidence of changes of COPD. There is right upper lobe airspace disea se. Progress note dated 10/25/2020. 75-year-old male admitted through the emergency department for respiratory failure, right upper lobe pneumonia, and hemoptysis. The patient does have a history of chronic atrial fibrillation as well and takes Coumadin for that. The patient was eventually intubated for respiratory failure. He remains on the ventilator. He is on the volume assist control mode, rate 20, tidal volume 400, FiO2 35%, and PEEP of 5. The patient's blood gases show pO2 166, pCO2 39, pH 7.37. The FiO2 was reduced down to 21%. The patient remains on Rocephin and Zithromax. Culture data is as far negative. He is on norepinephrine at 3.4 mcg/m, propofol at 50 mcg/kg/m, and heparin via weightbase protocol. He is getting saline at 20 mL an hour, and vital AF, at 40, with a goal of 47 mL an hour. White count 16.2, hemoglobin 9.7, hematocrit 30.1, and platelet count 350,000. PT 14.4, INR 1.4, and PTT 56. Sodium 140, potassium 4, chlorides 113, CO2 22, anion gap 5, BUN 16, and creatinine 0.55. Chest x-ray continues to show a right upper lobe infiltrate. Objective - Vital Signs Vital signs: Vital Signs Temp 97.8 F 10/25/20 08:00 Pulse 134 H 10/25/20 09:00 Resp 20 10/25/20 09:00 BP 112/81 10/25/20 09:00 Pulse Ox 93 L 10/25/20 09:00 Intake & Output 10/24/20 10/25/20 10/25/20 18:59 06:59 18:59 Intake Total 3100.472 1456.814 280 Output Total 625 580 55 Balance 2475.472 876.814 225 Weight 61.9 kg 68.9 kg Intake: IV 2695 865 40 .9 2695 865 40 Intake, IV Titration 255.472 181.814 100 Amount Diltiazem 125 mg In 30.667 Sodium Chloride 0.9% 100 ml @ Per Protocol IV .Q0M [facility] Rx#:[id number] Heparin Sod,Pork in 0.45% 64.333 65.304 NaCl 25,000 unit In 0.45 % NaCl 1 250ml.bag @ 12 UNITS/KG/HR 7.428 mls/hr IV .Q24H [facility] Rx#: [id number] Norepinephrine 32 mg In 10.560 16.510 Sodium Chloride 0.9% 218 ml @ 0.05 MCG/KG/MIN 1.33 mls/hr IV .Q24H [facility] Rx#: [id number] propofoL 1,000 mg In 149.912 100 100 Empty Bag 1 bag @ Titrate IV .Q0M [facility] Rx#: [id number] Tube Feeding 120 320 110 Other 30 90 30 Output: Urine 625 580 55 Other: Voiding Method Indwelling Catheter Indwelling Catheter Indwelling Catheter ABP, PAP, CO, CI - Last Documented Arterial Blood Pressure 120/64 - Exam No acute distress, sedated, looking much older than his stated age of 75, with an orally placed endotracheal tube and NG tube. HEENT examination is grossly unremarkable. Neck supple. Full range of motion. No adenopathy thyromegaly or neck vein distention. Cardiovascular examination reveals regular rhythm rate. S1-S2 normal. No S3 or S4. No discernible murmur noted. Heart rate 118. Heart sounds distant. Lungs reveal diminished bilateral breath sounds. Scattered rhonchi. No wheezes. No crackles. Breath sounds equal bilaterally. Abdomen soft bowel sounds are heard. No masses or tenderness. Extremities are intact. No cyanosis clubbing or edema. Skin is without rash or lesion. Neurologic examination could not be assessed because of his sedation with propofol. - Labs CBC & Chem 7: 10/25/20 05:40 10/25/20 05:40 Labs: Abnormal Lab Results - Last 24 Hours (Table) 10/24/20 10/24/20 10/24/20 Range/Units 03:50 11:37 13:26 WBC (3.8-10.6) k/uL RBC (4.30-5.90) m/uL Hgb (13.0-17.5) gm/dL Hct (39.0-53.0) % Neutrophils # (1.3-7.7) k/uL Lymphocytes # (1.0-4.8) k/uL PT (9.0-12.0) sec INR (<1.2) APTT 104.2 H* (22.0-30.0) sec ABG pO2 (83-108) mmHg ABG O2 Saturation (94-97) % Chloride (98-107) mmol/L Creatinine (0.66-1.25) mg/dL Glucose (74-99) mg/dL POC Glucose (mg/dL) 170 H (75-99) mg/dL Hemoglobin A1c 6.2 H (4.0-6.0) % Calcium (8.4-10.2) mg/dL 10/24/20 10/24/20 10/24/20 Range/Units 13:27 18:02 22:15 WBC (3.8-10.6) k/uL RBC (4.30-5.90) m/uL Hgb (13.0-17.5) gm/dL Hct (39.0-53.0) % Neutrophils # (1.3-7.7) k/uL Lymphocytes # (1.0-4.8) k/uL PT (9.0-12.0) sec INR (<1.2) APTT 74.0 H (22.0-30.0) sec ABG pO2 (83-108) mmHg ABG O2 Saturation (94-97) % Chloride (98-107) mmol/L Creatinine (0.66-1.25) mg/dL Glucose (74-99) mg/dL POC Glucose (mg/dL) 203 H 197 H (75-99) mg/dL Hemoglobin A1c (4.0-6.0) % Calcium (8.4-10.2) mg/dL 10/25/20 10/25/20 10/25/20 Range/Units 01:09 05:37 05:40 WBC 16.2 H (3.8-10.6) k/uL RBC 3.19 L (4.30-5.90) m/uL Hgb 9.7 L (13.0-17.5) gm/dL Hct 30.1 L (39.0-53.0) % Neutrophils # 14.9 H (1.3-7.7) k/uL Lymphocytes # 0.5 L (1.0-4.8) k/uL PT (9.0-12.0) sec INR (<1.2) APTT (22.0-30.0) sec ABG pO2 166 H (83-108) mmHg ABG O2 Saturation 99.2 H (94-97) % Chloride (98-107) mmol/L Creatinine (0.66-1.25) mg/dL Glucose (74-99) mg/dL POC Glucose (mg/dL) 118 H (75-99) mg/dL Hemoglobin A1c (4.0-6.0) % Calcium (8.4-10.2) mg/dL 10/25/20 10/25/20 10/25/20 Range/Units 05:40 05:40 05:40 WBC (3.8-10.6) k/uL RBC (4.30-5.90) m/uL Hgb (13.0-17.5) gm/dL Hct (39.0-53.0) % Neutrophils # (1.3-7.7) k/uL Lymphocytes # (1.0-4.8) k/uL PT 14.4 H (9.0-12.0) sec INR 1.4 H (<1.2) APTT 56.0 H (22.0-30.0) sec ABG pO2 (83-108) mmHg ABG O2 Saturation (94-97) % Chloride 113 H (98-107) mmol/L Creatinine 0.55 L (0.66-1.25) mg/dL Glucose 150 H (74-99) mg/dL POC Glucose (mg/dL) 150 H (75-99) mg/dL Hemoglobin A1c (4.0-6.0) % Calcium 7.9 L (8.4-10.2) mg/dL Microbiology - Last 24 Hours (Table) 10/22/20 23:45 Blood Culture Gram Stain - Preliminary Blood Blood Culture - Preliminary Staphylococcus epidermidis 10/23/20 00:05 Blood Culture Gram Stain - Preliminary Blood Assessment and Plan Assessment: Acute hypoxemic respiratory failure, likely secondary to COPD exacerbation, right upper lobe pneumonia, and hemoptysis, requiring intubation and mechanical ventilation on October 23. Hypotension, likely secondary to sepsis and right upper lobe pneumonia. History of hypertension. History of chronic atrial fibrillation, with RVR. History of hypothyroidism. Prior history of tobacco use. Rule out COPD. Plan: Plan dated 10/23/2020. The patient's fentanyl, and Versed drip, will be discontinued in favor of propofol. We also will discontinue the vasopressin, use norepinephrine as primary blood pressure support. An art line was placed. The patient is maintained on D5 half-normal saline 100 mL an hour. Tube feedings will be started. Labs will be reviewed. We'll make sure that the patient's on albuterol sulfate and ipratropium updrafts every 4 hours. Additional recommendations and suggestions are forthcoming. Prognosis is guarded. Plan dated 10/24/2020. The patient remains on norepinephrine at 22 mcg/m. Cardiology ordered some Lasix but will hold off for the time being and I'll give him some fluids to see if we can wean his norepinephrine down. In addition, his cortisol level was only 9. I will add hydrocortisone at stress doses, 50 mg, every 6 hours IV push. Cardiac the patient remains on Cardizem drip. FiO2 was dropped by 5% to 35%. His overall prognosis remains very guarded. A central line and art line in place. Updrafts were added every 4 hours. The patient will be started on tube feeds. Plan dated 10/25/2020. The patient will have a daily interruption of sedation and a spontaneous breathing trial. His FiO2 was dropped down to 21%. Arterial blood gases are excellent. Norepinephrine which was previously at 22 mcg/m, is now down to 3.4 mics per minute. Propofol will be held. He continues on heparin. He'll also continue on tube feeds. He may or may not be able to be extubated today. Additional recommendations and suggestions are forthcoming. Prognosis is guarded. The suspected pneumonia in his right lobe actually could be a lung cancer. He is quite cachectic appearing. Time with Patient: Greater than 30
[2020-10-25] MEDS: HEPARIN SOD,PORK IN 0.45% NACL 25,000 UNIT in 0.45% NACL 1 250ML.BAG IV SCH ×2 (09:39→16:24)
--- NOTE | 2020-10-25 10:08 | XR ---
EXAMINATION TYPE: XR chest 1V portable DATE OF EXAM: 10/25/2020 COMPARISON: 10/24/2020 HISTORY: 75 years Male. STUDY INDICATION GIVEN: Tube placement TECHNIQUE: Semiupright AP portable chest radiograph FINDINGS AND IMPRESSION: Tip of endotracheal tube 5 cm above konstantin. Enteric tube courses into the left upper abdomen. Right central jugular venous catheter at the cavoatrial junction. Focal consolidation again demonstrated in the right upper lobe with no significant change likely on t he basis of pneumonia. Lung mass/malignancy cannot be excluded in the right upper lobe, follow-up to resolution recommended. Mild pulmonary edema/vascular congestion. No cardiomegaly. No pneumothorax or pleural effusion. Postsurgical changes at the gastroesophageal junction. Disuse osteopenia, no acute osseous abnormality
[2020-10-25 10:35] VITALS: BMI 20.6
--- NOTE | 2020-10-25 11:09 | P.PN ---
Subjective Patient is a 75-year-old the female came in with the hemoptysis. Patient has history of atrial fibrillation for which patient is on Coumadin. Patient had INR of 3.7 and patient. Patient has a negative d-dimer at that time. Patient is also found to be in acute hypercapnic respiratory failure does have history of COPD patient was subsequently intubated. Patient had a chest x-ray which showed right upper lobe infiltrate. Patient doesn't have any fever does have leukocytosis patient was subsequently started on Rocephin and azithromycin and on systemic steroids and patient has mild hyperchloremia because of which patient is on half-normal saline patient is also on epinephrine patient does have history of atrial fibrillation presently in atrial fibrillation with rapid ventricular rate for which patient is on metoprolol. Current ventilator settings are tidal volume of 400 FiO2 40% PEEP of 5 set up respiratory of 20 patient is on propofol sedation at this time. 10/24/2020 Patient's hemoptysis improved INR is 1.2 today there is a suspicion that the right upper lobe infiltrate is probably a mass. Patient made some ventilator support patient the remains on the same and later settings as yesterday remains on norepinephrine at 22 mcg, is on propofol drip as well patient went into atrial fibrillation because of which patient was started on Cardizem with fluctuating blood pressures. Cortisol level was ordered as well. 10/25/2020 Patient remains in major to support with the episode of her on 21% today patient was on Rocephin and azithromycin patient norepinephrine requirements have come down remains on propofol. Patient is being treated for right upper lobe pneumonia and COPD. Patient remains off Coumadin patient is still in atrial fibrillation with rapid and regular rate Review of systems unable to obtain due to his clinical condition All inpatient medications were reviewed and appropriate changes in these medications as dictated in the interval history and assessment and plan. REVIEW OF SYSTEMS: Unable to obtain due to her clinical condition PHYSICAL EXAMINATION: GENERAL: The patient is intubated sedated, not in any acute distress. Well developed, well nourished. HEENT: Pupils are round and equally reacting to light. EOMI. No scleral icterus. No conjunctival pallor. Normocephalic, atraumatic. No pharyngeal erythema. No thyromegaly. CARDIOVASCULAR: S1 and S2 present. No murmurs, rubs, or gallops. PULMONARY: Bilateral diffuse rhonchi along with expiratory wheezing ABDOMEN: Soft, nontender, nondistended, normoactive bowel sounds. No palpable organomegaly. MUSCULOSKELETAL: No joint swelling or deformity. EXTREMITIES: No cyanosis, clubbing, or pedal edema. NEUROLOGICAL: Patient is sedated at this time. SKIN: No rashes. Assessment and plan -Acute hypoxic respiratory failure secondary to COPD exacerbation which was precipitated by triple upper lobe pneumonia patient will be continued on s ystemic steroids along with inhalational treatments continue with Rocephin and azithromycin. -Atrial fibrillation with rapid ventricular rate patient is presently on Cardizem -Septic shock secondary to pneumonia right upper lobe patient will continued on above-mentioned antibiotics and above-mentioned IV fluids. Probable right upper lobe mass cannot be ruled out -History of chronic atrial fibrillation presently left ventricular rate patient is in metoprolol which will be continued Coumadin is being held because of hemoptysis, present INR is 1.2 -Hemoptysis secondary to Coumadin and bronchitis and pneumonia. -Hypothyroidism -COPD with acute exacerbation DVT prophylaxis: Patient has elevated INR and had hemoptysis Objective - Vital Signs Vital signs: Vital Signs Temp 97.8 F 10/25/20 08:00 Pulse 124 H 10/25/20 10:58 Resp 20 10/25/20 10:00 BP 112/76 10/25/20 10:00 Pulse Ox 96 10/25/20 10:00 Intake & Output 10/24/20 10/25/20 10/25/20 18:59 06:59 18:59 Intake Total 3100.472 1456.814 367.979 Output Total 625 580 85 Balance 2475.472 876.814 282.979 Weight 61.9 kg 68.9 kg 68.9 kg Intake: IV 2695 865 60 .9 2695 865 60 Intake, IV Titration 255.472 181.814 127.979 Amount Diltiazem 125 mg In 30.667 Sodium Chloride 0.9% 100 ml @ Per Protocol IV .Q0M [facility] Rx#:[id number] Heparin Sod,Pork in 0.45% 64.333 65.304 NaCl 25,000 unit In 0.45 % NaCl 1 250ml.bag @ 12 UNITS/KG/HR 7.428 mls/hr IV .Q24H [facility] Rx#: [id number] Norepinephrine 32 mg In 10.560 16.510 6.517 Sodium Chloride 0.9% 218 ml @ 0.05 MCG/KG/MIN 1.33 mls/hr IV .Q24H [facility] Rx#: [id number] propofoL 1,000 mg In 149.912 100 121.462 Empty Bag 1 bag @ Titrate IV .Q0M [facility] Rx#: [id number] Tube Feeding 120 320 150 Other 30 90 30 Output: Urine 625 580 85 Other: Voiding Method Indwelling Catheter Indwelling Catheter Indwelling Catheter ABP, PAP, CO, CI - Last Documented Arterial Blood Pressure 117/61 - Labs CBC & Chem 7: 10/25/20 05:40 10/25/20 05:40 Labs: Abnormal Lab Results - Last 24 Hours (Table) 10/24/20 10/24/20 10/24/20 Range/Units 03:50 11:37 13:26 WBC (3.8-10.6) k/uL RBC (4.30-5.90) m/uL Hgb (13.0-17.5) gm/dL Hct (39.0-53.0) % Neutrophils # (1.3-7.7) k/uL Lymphocytes # (1.0-4.8) k/uL PT (9.0-12.0) sec INR (<1.2) APTT 104.2 H* (22.0-30.0) sec ABG pO2 (83-108) mmHg ABG O2 Saturation (94-97) % Chloride (98-107) mmol/L Creatinine (0.66-1.25) mg/dL Glucose (74-99) mg/dL POC Glucose (mg/dL) 170 H (75-99) mg/dL Hemoglobin A1c 6.2 H (4.0-6.0) % Calcium (8.4-10.2) mg/dL 10/24/20 10/24/20 10/24/20 Range/Units 13:27 18:02 22:15 WBC (3.8-10.6) k/uL RBC (4.30-5.90) m/uL Hgb (13.0-17.5) gm/dL Hct (39.0-53.0) % Neutrophils # (1.3-7.7) k/uL Lymphocytes # (1.0-4.8) k/uL PT (9.0-12.0) sec INR (<1.2) APTT 74.0 H (22.0-30.0) sec ABG pO2 (83-108) mmHg ABG O2 Saturation (94-97) % Chloride (98-107) mmol/L Creatinine (0.66-1.25) mg/dL Glucose (74-99) mg/dL POC Glucose (mg/dL) 203 H 197 H (75-99) mg/dL Hemoglobin A1c (4.0-6.0) % Calcium (8.4-10.2) mg/dL 10/25/20 10/25/20 10/25/20 Range/Units 01:09 05:37 05:40 WBC 16.2 H (3.8-10.6) k/uL RBC 3.19 L (4.30-5.90) m/uL Hgb 9.7 L (13.0-17.5) gm/dL Hct 30.1 L (39.0-53.0) % Neutrophils # 14.9 H (1.3-7.7) k/uL Lymphocytes # 0.5 L (1.0-4.8) k/uL PT (9.0-12.0) sec INR (<1.2) APTT (22.0-30.0) sec ABG pO2 166 H (83-108) mmHg ABG O2 Saturation 99.2 H (94-97) % Chloride (98-107) mmol/L Creatinine (0.66-1.25) mg/dL Glucose (74-99) mg/dL POC Glucose (mg/dL) 118 H (75-99) mg/dL Hemoglobin A1c (4.0-6.0) % Calcium (8.4-10.2) mg/dL 10/25/20 10/25/20 10/25/20 Range/Units 05:40 05:40 05:40 WBC (3.8-10.6) k/uL RBC (4.30-5.90) m/uL Hgb (13.0-17.5) gm/dL Hct (39.0-53.0) % Neutrophils # (1.3-7.7) k/uL Lymphocytes # (1.0-4.8) k/uL PT 14.4 H (9.0-12.0) sec INR 1.4 H (<1.2) APTT 56.0 H (22.0-30.0) sec ABG pO2 (83-108) mmHg ABG O2 Saturation (94-97) % Chloride 113 H (98-107) mmol/L Creatinine 0.55 L (0.66-1.25) mg/dL Glucose 150 H (74-99) mg/dL POC Glucose (mg/dL) 150 H (75-99) mg/dL Hemoglobin A1c (4.0-6.0) % Calcium 7.9 L (8.4-10.2) mg/dL Microbiology - Last 24 Hours (Table) 10/22/20 23:45 Blood Culture Gram Stain - Preliminary Blood Blood Culture - Preliminary Staphylococcus epidermidis 10/23/20 00:05 Blood Culture Gram Stain - Preliminary Blood
[2020-10-25 11:42] LABS: Glucose,Whole Blood 170 mg/dL (75-99)
[2020-10-25 14:13] LABS: ABG Base Excess -3.6 mmol/L; ABG HCO3 21 mmol/L (21-25); ABG Oxygen Saturation 92.7 % (94-97); ABG PCO2 36 mmHg (35-45); ABG PH 7.39 (7.35-7.45); ABG PO2 64 mmHg (83-108); ABG TCO2 23 mmol/L (19-24); Allen Test Performed? Yes
[2020-10-25] MEDS ORDERED: DILTIAZEM DRIP BOLUS FROM BAG 1 MG SOLN IV ONE (15:47)
[2020-10-25] MEDS: DILTIAZEM 125 MG in SODIUM CHLORIDE 0.9% 100 ML IV SCH (16:15)
[2020-10-25 17:47] LABS: Glucose,Whole Blood 139 mg/dL (75-99)
[2020-10-25] MEDS: AZITHROMYCIN 500 MG in SODIUM CHLORIDE 0.9% 250 ML IVPB SCH (21:37)
[2020-10-25 23:30] LABS: Glucose,Whole Blood 139 mg/dL (75-99)
[2020-10-26] MEDS: NOREPINEPHRINE 32 MG in SODIUM CHLORIDE 0.9% 218 ML IV SCH (00:48)
[2020-10-26] MEDS: DILTIAZEM 125 MG in SODIUM CHLORIDE 0.9% 100 ML IV SCH (02:50)
[2020-10-26] MEDS: IPRATROPIUM-ALBUTEROL 3 ML NEB INHALATION SCH ×6 (03:36→23:25)
[2020-10-26 04:47] LABS: Basophils % (A) 0 %; Eosinophils % (A) 0 %; HCT 29.1 % (39.0-53.0); HGB 9.4 gm/dL (13.0-17.5); Lymphocytes # (A) 0.7 k/uL (1.0-4.8); Lymphocytes % (A) 4 %; MCH 30.7 pg (25.0-35.0); MCHC 32.5 g/dL (31.0-37.0); MCV 94.6 fL (80.0-100.0); Mean Platelet Volume 8.9; Monocytes # (A) 0.9 k/uL (0-1.0); Monocytes % (A) 5 %; Neutrophils # (A) 15.2 k/uL (1.3-7.7); Neutrophils % (A) 90 %; Platelet Count 294 k/uL (150-450); RBC 3.07 m/uL (4.30-5.90); RDW 14.2 % (11.5-15.5)
[2020-10-26 04:57] LABS: ALT 44 U/L (4-49); AST 31 U/L (17-59); African American GFR (CKD) >90 (>60 ml/min/1.73 sqM); Albumin 2.3 g/dL (3.5-5.0); Alkaline Phosphatase 81 U/L (38-126); Anion Gap 4 mmol/L; Blood Urea Nitrogen 19 mg/dL (9-20); Calcium 7.8 mg/dL (8.4-10.2); Carbon Dioxide 26 mmol/L (22-30); Chloride 112 mmol/L (98-107); Glucose 135 mg/dL (74-99); Non-African American GFR(CKD) >90 (>60 ml/min/1.73 sqM); Potassium 3.6 mmol/L (3.5-5.1); Sodium 142 mmol/L (137-145); Total Bilirubin 0.1 mg/dL (0.2-1.3); Total Protein 4.8 g/dL (6.3-8.2)
[2020-10-26 05:07] LABS: INR 1.6 (<1.2); Prothrombin Time 15.6 sec (9.0-12.0)
[2020-10-26] MEDS ORDERED: POTASSIUM CHLORIDE ER 20 MEQ TAB.ER PO STA (05:50)
[2020-10-26 06:18] LABS: Glucose,Whole Blood 148 mg/dL (75-99)
[2020-10-26] MEDS: HYDROCORTISONE SUCCINATE 100 MG/2 ML VIAL IV SCH ×3 (06:20→18:11)
[2020-10-26] MEDS: INSULIN ASPART (NovoLOG) 100 UNIT/ML VIAL SQ SCH ×4 (06:21→21:02)
--- NOTE | 2020-10-26 07:16 | XR ---
EXAMINATION TYPE: XR chest 1V DATE OF EXAM: 10/26/2020 COMPARISON: 10/25/2020 HISTORY: 75 years Male. STUDY INDICATION GIVEN: Shortness of breath TECHNIQUE: AP portable chest radiograph FINDINGS AND IMPRESSION: Endotracheal and nasogastric tubes have been removed. Right jugular CVC catheter projects over the right atrium similar to prior study. Worsening opacities demonstrated in the upper lobes bilaterally. Pneumonia and/or atelectasis No pneumothorax or pleural effusion. Cardiomediastinal silhouette within normal limits. Osseous structures are unchanged since yesterday. GE junction surgical clips again seen.
--- NOTE | 2020-10-26 08:10 | P.PN ---
Subjective Progress Note Date: 10/26/20 Patient is a 75-year-old the female came in with the hemoptysis. Patient has history of atrial fibrillation for which patient is on Coumadin. Patient had INR of 3.7 and patient. Patient has a negative d-dimer at that time. Patient is also found to be in acute hypercapnic respiratory failure does have history of COPD patient was subsequently intubated. Patient had a chest x-ray which showed right upper lobe infiltrate. Patient doesn't have any fever does have leukocytosis patient was subsequently started on Rocephin and azithromycin and on systemic steroids and patient has mild hyperchloremia because of which patient is on half-normal saline patient is also on epinephrine patient does have history of atrial fibrillation presently in atrial fibrillation with rapid ventricular rate for which patient is on metoprolol. Current ventilator settings are tidal volume of 400 FiO2 40% PEEP of 5 set up respiratory of 20 patient is on propofol sedation at this time. 10/24/2020 Patient's hemoptysis improved INR is 1.2 today there is a suspicion that the right upper lobe infiltrate is probably a mass. Patient made some ventilator support patient the remains on the same and later settings as yesterday remains on norepinephrine at 22 mcg, is on propofol drip as well patient went into atrial fibrillation because of which patient was started on Cardizem with fluctuating blood pressures. Cortisol level was ordered as well. 10/25/2020 Patient remains in major to support with the episode of her on 21% today patient was on Rocephin and azithromycin patient norepinephrine requirements have come down remains on propofol. Patient is being treated for right upper lobe pneumonia and COPD. Patient remains off Coumadin patient is still in atrial fibrillation with rapid and regular rate 10/26/2020 Patient seen on follow-up, extubated yesterday, he is off pressor support, maintaining O2 saturations above 90% on nonrebreather. He is tachypneic, not in overt distress. Heart rate is in the 70s, he remains on IV Cardizem at 10 an hour, anticoagulated with IV heparin. Patient is a 75-year-old the female came in with the hemoptysis. Patient has history of atrial fibrillation for which patient is on Coumadin. Patient had INR of 3.7 and patient. Patient has a negative d-dimer at that time. Patient is also found to be in acute hypercapnic respiratory failure does have history of COPD patient was subsequently intubated. Patient had a chest x-ray which showed right upper lobe infiltrate. Patient doesn't have any fever does have leukocytosis patient was subsequently started on Rocephin and azithromycin and on systemic steroids and patient has mild hyperchloremia because of which patient is on half-normal saline patient is also on epinephrine patient does hav e history of atrial fibrillation presently in atrial fibrillation with rapid ventricular rate for which patient is on metoprolol. Current ventilator settings are tidal volume of 400 FiO2 40% PEEP of 5 set up respiratory of 20 patient is on propofol sedation at this time. 10/24/2020 Patient's hemoptysis improved INR is 1.2 today there is a suspicion that the right upper lobe infiltrate is probably a mass. Patient made some ventilator support patient the remains on the same and later settings as yesterday remains on norepinephrine at 22 mcg, is on propofol drip as well patient went into atria l fibrillation because of which patient was started on Cardizem with fluctuating blood pressures. Cortisol level was ordered as well. 10/25/2020 Patient remains in major to support with the episode of her on 21% today patient was on Rocephin and azithromycin patient norepinephrine requirements have come down remains on propofol. Patient is being treated for right upper lobe pneumonia and COPD. Patient remains off Coumadin patient is still in atrial fibrillation with rapid and regular rate. Chest x-ray today showing worsening opacities in the bilateral upper lobes, no pneumothorax or pleural effusion. He is continued on antimicrobial therapy with azithromycin and Rocephin. Receiving systemic steroids with Cortef 50 IV every 6 hours. INR 1.6. Blood sugars controlled. All inpatient medications were reviewed and appropriate changes in these medications as dictated in the interval history and assessment and plan. REVIEW OF SYSTEMS: ENT: No diminished vision or hearing. CARDIOVASCULAR: Negative RESPIRATORY: Dyspnea : Negative NERVOUS SYSTEM: Negative MUSCULOSKELETAL: Negative CONSTITUTIONAL: Negative PHYSICAL EXAMINATION: GENERAL: The patient is intubated sedated, not in any acute distress. Well developed, well nourished. HEENT: Pupils are round and equally reacting to light. EOMI. No scleral icterus. No conjunctival pallor. Normocephalic, atraumatic. No pharyngeal erythema. No thyromegaly. CARDIOVASCULAR: S1 and S2 present. No murmurs, rubs, or gallops. PULMONARY: Bilateral diffuse rhonchi along with expiratory wheezing ABDOMEN: Soft, nontender, nondistended, normoactive bowel sounds. No palpable organomegaly. MUSCULOSKELETAL: No joint swelling or deformity. EXTREMITIES: No cyanosis, clubbing, or pedal edema. NEUROLOGICAL: Patient is sedated at this time. SKIN: No rashes. PHYSICAL EXAMINATION: GENERAL: Alert, appropriate Extubated, on nonrebreather, HEENT: Pupils are round and equally reacting to light. EOMI. No scleral icterus. No conjunctival pallor. Normocephalic, atraumatic. No pharyngeal erythema. No thyromegaly. CARDIOVASCULAR: S1 and S2 present. No murmurs, rubs, or gallops. PULMONARY: Bilateral expiratory wheezing, scattered rhonchi ABDOMEN: Soft, nontender, nondistended, normoactive bowel sounds. No palpable organomegaly. MUSCULOSKELETAL: No joint swelling or deformity. EXTREMITIES: No cyanosis, clubbing, or pedal edema. NEUROLOGIC: alert, oriented 3, moving all extremities SKIN: No rashes. Assessment and plan -Acute hypoxic respiratory failure secondary to COPD exacerbation : Requiring mechanical ventilation, extubated on 10/25/20. Continues antimicrobial therapy with Rocephin and azithromycin. IV steroids with Cortef every 6 hours. -Atrial fibrillation with rapid ventricular rate patient is presently on Cardizem, anticoagulated with IV heparin -Septic shock secondary to pneumonia right upper lobe patient will continued on above-mentioned antibiotics. He is off pressor support, fluids hep-locked.. Blood pressure stable -Probable right upper lobe mass cannot be ruled out -History of chronic atrial fibrillation presently left ventricular rate patient is in metoprolol and IV Cardizem, anticoagulated with IV heparin, Coumadin is being held because of hemoptysis, present INR is 1.4 -Hemoptysis secondary to Coumadin and bronchitis and pneumonia. -Hypothyroidism -COPD with acute exacerbation DVT prophylaxis: Patient has elevated INR and had hemoptysis Objective - Vital Signs Vital signs: Vital Signs Temp 98 F 10/26/20 04:00 Pulse 110 H 10/26/20 07:00 Resp 26 H 10/26/20 07:00 BP 99/63 10/26/20 07:00 Pulse Ox 95 10/26/20 07:00 Intake & Output 10/25/20 10/26/20 10/26/20 18:59 06:59 18:59 Intake Total 849.718 662.166 23 Output Total 340 465 20 Balance 509.718 197.166 3 Weight 68.9 kg 63.8 kg Intake: IV 220 553 23 .9 220 220 20 [place] Flush 33 3 Azithromycin 500 mg In 250 Sodium Chloride 0.9% 250 ml @ 250 mls/hr IVPB DAILY@2100 [facility] Rx#: [id number] cefTRIAXone 2 gm In 50 Sodium Chloride 0.9% 50 ml @ 100 mls/hr IVPB HS [facility] Rx#:[id number] Intake, IV Titration 259.718 109.166 Amount Diltiazem 125 mg In 109.166 Sodium Chloride 0.9% 100 ml @ 10 MG/HR 10 mls/hr IV .[id number] [facility] Rx#: [id number] Heparin Sod,Pork in 0.45% 110.298 NaCl 25,000 unit In 0.45 % NaCl 1 250ml.bag @ 12 UNITS/KG/HR 7.428 mls/hr IV .Q24H [facility] Rx#: [id number] Norepinephrine 32 mg In 9.940 Sodium Chloride 0.9% 218 ml @ 0.05 MCG/KG/MIN 1.33 mls/hr IV .Q24H [facility] Rx#: [id number] propofoL 1,000 mg In 139.480 Empty Bag 1 bag @ Titrate IV .Q0M [facility] Rx#: [id number] Tube Feeding 310 Other 60 Output: Urine 340 465 20 Other: Voiding Method Indwelling Catheter Indwelling Catheter ABP, PAP, CO, CI - Last Documented Arterial Blood Pressure 100/50 - Labs CBC & Chem 7: 10/26/20 04:25 10/26/20 04:25 Labs: Abnormal Lab Results - Last 24 Hours (Table) 10/25/20 10/25/20 10/25/20 Range/Units 05:40 11:40 13:45 WBC (3.8-10.6) k/uL RBC (4.30-5.90) m/uL Hgb (13.0-17.5) gm/dL Hct (39.0-53.0) % Neutrophils # 14.9 H (1.3-7.7) k/uL Lymphocytes # 0.5 L (1.0-4.8) k/uL PT (9.0-12.0) sec INR (<1.2) APTT (22.0-30.0) sec ABG pO2 64 L (83-108) mmHg ABG O2 Saturation 92.7 L (94-97) % Chloride (98-107) mmol/L Creatinine (0.66-1.25) mg/dL Glucose (74-99) mg/dL POC Glucose (mg/dL) 170 H (75-99) mg/dL Calcium (8.4-10.2) mg/dL Total Bilirubin (0.2-1.3) mg/dL Total Protein (6.3-8.2) g/dL Albumin (3.5-5.0) g/dL 10/25/20 10/25/20 10/26/20 Range/Units 17:45 23:28 04:25 WBC (3.8-10.6) k/uL RBC (4.30-5.90) m/uL Hgb (13.0-17.5) gm/dL Hct (39.0-53.0) % Neutrophils # (1.3-7.7) k/uL Lymphocytes # (1.0-4.8) k/uL PT (9.0-12.0) sec INR (<1.2) APTT (22.0-30.0) sec ABG pO2 (83-108) mmHg ABG O2 Saturation (94-97) % Chloride 112 H (98-107) mmol/L Creatinine 0.62 L (0.66-1.25) mg/dL Glucose 135 H (74-99) mg/dL POC Glucose (mg/dL) 139 H 139 H (75-99) mg/dL Calcium 7.8 L (8.4-10.2) mg/dL Total Bilirubin 0.1 L (0.2-1.3) mg/dL Total Protein 4.8 L (6.3-8.2) g/dL Albumin 2.3 L (3.5-5.0) g/dL 10/26/20 10/26/20 10/26/20 Range/Units 04:25 04:25 06:17 WBC 17.0 H (3.8-10.6) k/uL RBC 3.07 L (4.30-5.90) m/uL Hgb 9.4 L (13.0-17.5) gm/dL Hct 29.1 L (39.0-53.0) % Neutrophils # 15.2 H (1.3-7.7) k/uL Lymphocytes # 0.7 L (1.0-4.8) k/uL PT 15.6 H (9.0-12.0) sec INR 1.6 H (<1.2) APTT 48.0 H (22.0-30.0) sec ABG pO2 (83-108) mmHg ABG O2 Saturation (94-97) % Chloride (98-107) mmol/L Creatinine (0.66-1.25) mg/dL Glucose (74-99) mg/dL POC Glucose (mg/dL) 148 H (75-99) mg/dL Calcium (8.4-10.2) mg/dL Total Bilirubin (0.2-1.3) mg/dL Total Protein (6.3-8.2) g/dL Albumin (3.5-5.0) g/dL Microbiology - Last 24 Hours (Table) 10/23/20 00:05 Blood Culture Gram Stain - Preliminary Blood Blood Culture - Preliminary Coagulase Negative Staph
[2020-10-26] MEDS: PANTOPRAZOLE 40 MG/10 ML VIAL IV SCH (09:14)
[2020-10-26] MEDS: FUROSEMIDE 10 MG/ML 4 ML VIAL IV SCH ×2 (09:14→21:07)
[2020-10-26] MEDS: METOPROLOL TARTRATE 50 MG TAB PO SCH ×3 (09:14→21:07)
--- NOTE | 2020-10-26 09:46 | PN ---
PROGRESS NOTE INTERVAL HISTORY: Mr. Cueva is a 75-year-old male with a known history of chronic persistent atrial fibrillation who presented with progressive dyspnea and pneumonia. He had hemoptysis. He was extubated yesterday. He is feeling well. His breathing is stable. He denies any chest pain. He denies any dizziness. He denies any nausea. He had an episode of atrial fibrillation with rapid ventricular response. He has a known history of severe cardiomyopathy. He continues to be at this time on IV Cardizem, Lasix 40 mg IV q.12 hours, he is on IV heparin, metoprolol tartrate 50 mg twice a day. PHYSICAL EXAMINATION: Blood pressure 101/70, heart rate in the 100s. LUNGS: Decreased air exchange, no wheezes. HEART: Irregularly irregular S1, S2. No S3. No rub. ABDOMEN: Soft and nontender. EXTREMITIES: No edema. LAB DATA: Hemoglobin 9.4, white blood cell of 17,000. His BUN and creatinine are 19 and 0.62, potassium 3.6. IMPRESSION: 1. Respiratory failure with pneumonia, improved. The patient is extubated. 2. Atrial fibrillation persistent with rate under better control on the present regimen. 3. Severe cardiomyopathy by echocardiography. 4. Prior hypotension resolved. Off pressors. RECOMMENDATION: I will increase the dose of his beta yelitza to 3 times a day. I will stop the IV Cardizem. We will continue to monitor his blood pressure and if he is stable, I will add an MARANDA inhibitor. I will add Aldactone to his regimen and depending on his progress further recommendation will be made. If he is stable by tomorrow, will switch him back to oral anticoagulation. MMODL / IJN: [id number] /
--- NOTE | 2020-10-26 10:52 | P.PN ---
Subjective Progress Note Date: 10/26/20 Principal diagnosis: Respiratory failure. Pulmonary consult dated 10/23/2020. 75-year-old male who looks much older than his stated age, who apparently came in for coughing up blood. The patient apparently has a history of chronic atrial fibrillation for which she takes Coumadin. Apparently over the last few days, the patient began coughing up blood. On the day of admission to the emergency room, this became much more significant which is why he came in. In addition, he was apparently short of breath. He also apparently has been not eating, and she has been feeling generally ill. Patient apparently was in significant respiratory distress when he was seen in the emergency room, and eventually, because of respiratory compromise and failure, the patient was intubated and mechanically ventilated. He has a history of hypertension, atrial fibrillation, and hypothyroidism. His current ventilator settings include the volume assist control, rate of 20, tidal volume 400, FiO2 40%, and PEEP of 5. Blood gases on those settings pO2 of 90, pCO2 45, and pH is 7.28. The patient's on D5 and half-normal saline at 100 mL an hour, vasopressin at 0.03 units per minute, norepinephrine at 0.13 mcg/kg/m, first set at 1 mg an hour, and fentanyl at 1 mcg/kg/h. The patient's chest x-ray does show an infiltrate in the right upper lobe. White count 12.6, hemoglobin 10.7, hematocrit 35.5, platelet count 387,000. PTT 29.6, INR 3.1, sodium 139, potassium 4.8, chlorides 108, CO2 23, anion gap 8, BUN 20, creatinine 0.95, and a calcium of 7.6. Progress note dated 10/24/2020. 75-year-old male, who was admitted to the emergency department, for respiratory failure, right upper lobe pneumonia, and hemoptysis. The patient does have a history of chronic atrial fibrillation for which he takes Coumadin. Apparently over the last couple of days prior to admission, the patient was complaining of hemoptysis. Apparently when he got to the emergency room, hemoptysis was much worse, and he was very short of breath, and he was intubated in the emergency department. Currently remains on the ventilator. He is on the volume assist control mode, rate 20, tidal volume 400, FiO2 40%, and PEEP of 5. Blood gases show a PaO2 of 110, PaCO2 40, and a pH is 7.37. Hence, the FiO2 was reduced by 5%. The patient's getting saline at 20 mL an hour, norepinephrine at 22 mcg/m, propofol at 35 mcg/kg/m, and Cardizem drip at 5 mg an hour. He apparently did develop atrial fibrillation overnight. Also, because he is on a high dose of norepinephrine, we'll hold off on Lasix at this time, additional fluids, to see if we can wean off the norepinephrine. In addition, we will do a daily interruption of sedation. A cortisol level will also be done. White count is 18.2, hemoglobin 10.3, hematocrit 31.7, and platelet count 315,000. PT 12.1 with an INR 1.2. Sodium 141, potassium 3.7, chlorides 111, CO2 23, anion gap 7, BUN 15, creatinine 0.54. Albumin is 2.7. Cortisol level was only 9. Chest x- ray show evidence of changes of COPD. There is right upper lobe airspace disea se. Progress note dated 10/25/2020. 75-year-old male admitted through the emergency department for respiratory failure, right upper lobe pneumonia, and hemoptysis. The patient does have a history of chronic atrial fibrillation as well and takes Coumadin for that. The patient was eventually intubated for respiratory failure. He remains on the ventilator. He is on the volume assist control mode, rate 20, tidal volume 400, FiO2 35%, and PEEP of 5. The patient's blood gases show pO2 166, pCO2 39, pH 7.37. The FiO2 was reduced down to 21%. The patient remains on Rocephin and Zithromax. Culture data is as far negative. He is on norepinephrine at 3.4 mcg/m, propofol at 50 mcg/kg/m, and heparin via weightbase protocol. He is getting saline at 20 mL an hour, and vital AF, at 40, with a goal of 47 mL an hour. White count 16.2, hemoglobin 9.7, hematocrit 30.1, and platelet count 350,000. PT 14.4, INR 1.4, and PTT 56. Sodium 140, potassium 4, chlorides 113, CO2 22, anion gap 5, BUN 16, and creatinine 0.55. Chest x-ray continues to show a right upper lobe infiltrate. Progress note dated 10/26/2020. 75-year-old male admitted to the emergency department for respiratory failure, right upper lobe pneumonia, and hemoptysis. The patient was weaned and extubated yesterday, October 25. Currently, he's on a nonrebreather mask. He is receiving Cardizem drip at 10 mg an hour, and heparin via weightbase protocol. Is getting saline at 20 mL an hour. Looking back over the last few days, the patient is way ahead on fluids, and he will get Lasix 40 mg IV push twice a day. The patient is now a DO NOT RESUSCITATE. We did talk to him about CODE STATUS about whether or not he would want to go back on life support. He said no. We will also get an incentive spirometer in the room. White count 17, hemoglobin 9.4, hematocrit 29.1, and platelet count normal. PT 15.6, INR 1.6, and PTT 48. Sodium 142, potassium 3.6, chlorides 112, CO2 26, anion gap 4, BUN 19, and creatinine 0.62. Chest x-ray shows diffuse bilateral infiltrates. I believe he does have a component of fluid overload. Objective - Vital Signs Vital signs: Vital Signs Temp 98.5 F 10/26/20 08:00 Pulse 100 10/26/20 10:00 Resp 26 H 10/26/20 10:00 BP 91/66 10/26/20 10:00 Pulse Ox 92 L 10/26/20 10:00 Intake & Output 10/25/20 10/26/20 10/26/20 18:59 06:59 18:59 Intake Total 849.718 662.166 92 Output Total 340 465 415 Balance 509.718 197.166 -323 Weight 68.9 kg 63.8 kg Intake: IV 220 553 92 .9 220 220 80 [place] Flush 33 12 Azithromycin 500 mg In 250 Sodium Chloride 0.9% 250 ml @ 250 mls/hr IVPB DAILY@2100 [facility] Rx#: [id number] cefTRIAXone 2 gm In 50 Sodium Chloride 0.9% 50 ml @ 100 mls/hr IVPB HS [facility] Rx#:[id number] Intake, IV Titration 259.718 109.166 Amount Diltiazem 125 mg In 109.166 Sodium Chloride 0.9% 100 ml @ 10 MG/HR 10 mls/hr IV .[id number] [facility] Rx#: [id number] Heparin Sod,Pork in 0.45% 110.298 NaCl 25,000 unit In 0.45 % NaCl 1 250ml.bag @ 12 UNITS/KG/HR 7.428 mls/hr IV .Q24H [facility] Rx#: [id number] Norepinephrine 32 mg In 9.940 Sodium Chloride 0.9% 218 ml @ 0.05 MCG/KG/MIN 1.33 mls/hr IV .Q24H [facility] Rx#: [id number] propofoL 1,000 mg In 139.480 Empty Bag 1 bag @ Titrate IV .Q0M [facility] Rx#: [id number] Tube Feeding 310 Other 60 Output: Urine 340 465 415 Other: Voiding Method Indwelling Catheter Indwelling Catheter Indwelling Catheter ABP, PAP, CO, CI - Last Documented Arterial Blood Pressure 103/49 - Exam No acute distress, awake, oriented, in no respiratory distress, with a nonrebreather mask in place. HEENT examination is grossly unremarkable. Neck supple. Full range of motion. No adenopathy thyromegaly or neck vein distention. Cardiovascular examination reveals regular rhythm rate. S1-S2 normal. No S3 or S4. No discernible murmur noted. Heart rate 100. Heart sounds are distant. Lungs reveal diminished bilateral breath sounds. Scattered rhonchi. No wheezes. No crackles. Breath sounds equal bilaterally. Abdomen soft bowel sounds are heard. No masses or tenderness. Extremities are intact. No cyanosis clubbing or edema. Skin is without rash or lesion. Neurologic examination reveals an awake and verbally appropriate 75-year-old male. - Labs CBC & Chem 7: 10/26/20 04:25 10/26/20 04:25 Labs: Abnormal Lab Results - Last 24 Hours (Table) 10/25/20 10/25/20 10/25/20 Range/Units 11:40 13:45 17:45 WBC (3.8-10.6) k/uL RBC (4.30-5.90) m/uL Hgb (13.0-17.5) gm/dL Hct (39.0-53.0) % Neutrophils # (1.3-7.7) k/uL Lymphocytes # (1.0-4.8) k/uL PT (9.0-12.0) sec INR (<1.2) APTT (22.0-30.0) sec ABG pO2 64 L (83-108) mmHg ABG O2 Saturation 92.7 L (94-97) % Chloride (98-107) mmol/L Creatinine (0.66-1.25) mg/dL Glucose (74-99) mg/dL POC Glucose (mg/dL) 170 H 139 H (75-99) mg/dL Calcium (8.4-10.2) mg/dL Total Bilirubin (0.2-1.3) mg/dL Total Protein (6.3-8.2) g/dL Albumin (3.5-5.0) g/dL 10/25/20 10/26/20 10/26/20 Range/Units 23:28 04:25 04:25 WBC 17.0 H (3.8-10.6) k/uL RBC 3.07 L (4.30-5.90) m/uL Hgb 9.4 L (13.0-17.5) gm/dL Hct 29.1 L (39.0-53.0) % Neutrophils # 15.2 H (1.3-7.7) k/uL Lymphocytes # 0.7 L (1.0-4.8) k/uL PT (9.0-12.0) sec INR (<1.2) APTT (22.0-30.0) sec ABG pO2 (83-108) mmHg ABG O2 Saturation (94-97) % Chloride 112 H (98-107) mmol/L Creatinine 0.62 L (0.66-1.25) mg/dL Glucose 135 H (74-99) mg/dL POC Glucose (mg/dL) 139 H (75-99) mg/dL Calcium 7.8 L (8.4-10.2) mg/dL Total Bilirubin 0.1 L (0.2-1.3) mg/dL Total Protein 4.8 L (6.3-8.2) g/dL Albumin 2.3 L (3.5-5.0) g/dL 10/26/20 10/26/20 Range/Units 04:25 06:17 WBC (3.8-10.6) k/uL RBC (4.30-5.90) m/uL Hgb (13.0-17.5) gm/dL Hct (39.0-53.0) % Neutrophils # (1.3-7.7) k/uL Lymphocytes # (1.0-4.8) k/uL PT 15.6 H (9.0-12.0) sec INR 1.6 H (<1.2) APTT 48.0 H (22.0-30.0) sec ABG pO2 (83-108) mmHg ABG O2 Saturation (94-97) % Chloride (98-107) mmol/L Creatinine (0.66-1.25) mg/dL Glucose (74-99) mg/dL POC Glucose (mg/dL) 148 H (75-99) mg/dL Calcium (8.4-10.2) mg/dL Total Bilirubin (0.2-1.3) mg/dL Total Protein (6.3-8.2) g/dL Albumin (3.5-5.0) g/dL Microbiology - Last 24 Hours (Table) 10/22/20 23:45 Blood Culture Gram Stain - Final Blood Blood Culture - Final Staphylococcus epidermidis 10/23/20 00:05 Blood Culture Gram Stain - Preliminary Blood Blood Culture - Preliminary Coagulase Negative Staph Assessment and Plan Assessment: Acute hypoxemic respiratory failure, likely secondary to COPD exacerbation, right upper lobe pneumonia, and hemoptysis, requiring intubation and mechanical ventilation on October 23, status post successful extubation on October 25. Hypotension, likely secondary to sepsis and right upper lobe pneumonia, resolved. History of hypertension. History of chronic atrial fibrillation, with RVR. History of hypothyroidism. Prior history of tobacco use. Rule out COPD. Plan: Plan dated 10/23/2020. The patient's fentanyl, and Versed drip, will be discontinued in favor of propofol. We also will discontinue the vasopressin, use norepinephrine as primary blood pressure support. An art line was placed. The patient is maintained on D5 half-normal saline 100 mL an hour. Tube feedings will be started. Labs will be reviewed. We'll make sure that the patient's on albuterol sulfate and ipratropium updrafts every 4 hours. Additional recommendations and suggestions are forthcoming. Prognosis is guarded. Plan dated 10/24/2020. The patient remains on norepinephrine at 22 mcg/m. Cardiology ordered some L asix but will hold off for the time being and I'll give him some fluids to see if we can wean his norepinephrine down. In addition, his cortisol level was only 9. I will add hydrocortisone at stress doses, 50 mg, every 6 hours IV push. Cardiac the patient remains on Cardizem drip. FiO2 was dropped by 5% to 35%. His overall prognosis remains very guarded. A central line and art line in place. Updrafts were added every 4 hours. The patient will be started on tube feeds. Plan dated 10/25/2020. The patient will have a daily interruption of sedation and a spontaneous breathing trial. His FiO2 was dropped down to 21%. Arterial blood gases are excellent. Norepinephrine which was previously at 22 mcg/m, is now down to 3.4 mics per minute. Propofol will be held. He continues on heparin. He'll also continue on tube feeds. He may or may not be able to be extubated today. Additional recommendations and suggestions are forthcoming. Prognosis is guarded. The suspected pneumonia in his right lobe actually could be a lung cancer. He is quite cachectic appearing. Plan dated 10/26/2020. The patient will get Lasix 40 mg IV push, twice a day. The patient was successfully extubated on October 25. He remains on a nonrebreather. He also is on a Cardizem drip at 10 mg an hour for chronic atrial fibrillation, and heparin drip at weight based protocol. The patient will get an incentive spirometer. We recommend deep breathing, coughing, clearing of secretions. Looking at the i s and os, the patient's way ahead on fluids. We did talk to the patient about CODE STATUS and whether or not he would want to be back on life support. He said no. Hence, we will continue to treat him short of reintubation and mechanical ventilation. Time with Patient: Greater than 30
[2020-10-26 11:49] LABS: Glucose,Whole Blood 100 mg/dL (75-99)
[2020-10-26] MEDS: SPIRONOLACTONE 25 MG TAB PO SCH (12:07)
[2020-10-26 17:26] LABS: Glucose,Whole Blood 121 mg/dL (75-99)
[2020-10-26 20:50] LABS: Glucose,Whole Blood 122 mg/dL (75-99)
[2020-10-26] MEDS ORDERED: QUEtiapine 25 MG TAB PO SCH (21:00)
[2020-10-26] MEDS: AZITHROMYCIN 500 MG in SODIUM CHLORIDE 0.9% 250 ML IVPB SCH (21:08)
[2020-10-27] MEDS: HYDROCORTISONE SUCCINATE 100 MG/2 ML VIAL IV SCH ×3 (00:03→11:31)
[2020-10-27] MEDS ORDERED: DILTIAZEM ORAL 30 MG TAB PO SCH (00:45)
[2020-10-27] MEDS: HEPARIN SOD,PORK IN 0.45% NACL 25,000 UNIT in 0.45% NACL 1 250ML.BAG IV SCH (00:55)
[2020-10-27] MEDS: IPRATROPIUM-ALBUTEROL 3 ML NEB INHALATION SCH ×4 (03:06→15:39)
[2020-10-27 04:42] LABS: Basophils % (A) 0 %; Eosinophils % (A) 0 %; HGB 9.8 gm/dL (13.0-17.5); Lymphocytes # (A) 0.5 k/uL (1.0-4.8); Lymphocytes % (A) 3 %; MCHC 31.7 g/dL (31.0-37.0); MCV 94.7 fL (80.0-100.0); Mean Platelet Volume 8.4; Monocytes # (A) 0.7 k/uL (0-1.0); Monocytes % (A) 5 %; Neutrophils # (A) 12.6 k/uL (1.3-7.7); Neutrophils % (A) 91 %; Platelet Count 334 k/uL (150-450); RBC 3.27 m/uL (4.30-5.90); RDW 14.8 % (11.5-15.5); WBC 13.9 k/uL (3.8-10.6)
[2020-10-27 04:56] LABS: INR 1.3 (<1.2); Partial Thromboplastin Time 35.8 sec (22.0-30.0); Prothrombin Time 13.7 sec (9.0-12.0)
[2020-10-27 06:07] LABS: African American GFR (CKD) >90 (>60 ml/min/1.73 sqM); Anion Gap 7 mmol/L; Blood Urea Nitrogen 21 mg/dL (9-20); Calcium 7.9 mg/dL (8.4-10.2); Carbon Dioxide 29 mmol/L (22-30); Chloride 107 mmol/L (98-107); Glucose 128 mg/dL (74-99); Non-African American GFR(CKD) >90 (>60 ml/min/1.73 sqM); Potassium 3.2 mmol/L (3.5-5.1); Sodium 143 mmol/L (137-145)
[2020-10-27] MEDS ORDERED: Potassium Replacement Protocol 1 EACH MISC MISCELLANE PRN (06:11)
[2020-10-27] MEDS: POTASSIUM CHLORIDE 20 MEQ in WATER FOR INJECTION 1 100ML.BAG IVPB SCH ×2 (06:31→08:48)
[2020-10-27 07:02] LABS: Glucose,Whole Blood 118 mg/dL (75-99)
[2020-10-27] MEDS: INSULIN ASPART (NovoLOG) 100 UNIT/ML VIAL SQ SCH ×2 (07:05→11:31)
--- NOTE | 2020-10-27 07:29 | XR ---
EXAMINATION TYPE: XR chest 1V DATE OF EXAM: 10/27/2020 COMPARISON: 10/26/2020 HISTORY: 75-year-old male shortness of breath TECHNIQUE: Single frontal view of the chest is obtained. FINDINGS: Patient is rotated towards the right altering the normal cardiac and mediastinal contours. Right IJ C VC tip in the upper right atrium. Heart upper limits of normal in size. Marked hyperinflation. Stable right apical consolidation and patchy airspace opacity throughout the left lung. Left basilar nodula rity could represent prominent rib end or nipple shadow. Surgical clips near the GE junction region. IMPRESSION: 1. Stable advanced emphysema with airspace disease throughout the left lung and continued right apica l consolidation. 2. Left basilar nodular density could be secondary to a prominent rib end or nipple shadow. Attention on follow-up and after successful treatment to ensure stability/resolution and to exclude an underly ing pulmonary nodule.
[2020-10-27] MEDS ORDERED: VANCOMYCIN IV PER PHARMACY 1 EACH MISC MISCELLANE PRN (07:55)
--- NOTE | 2020-10-27 07:57 | P.PN ---
Subjective Progress Note Date: 10/27/20 75-year-old male patient, presented to the hospital because of bilateral pneumonia and respiratory failure. The patient is known to have chronic atrial fibrillation and the patient is maintained on Coumadin on outpatient basis. In the emergency, the patient also had increased cough and dyspnea and hemoptysis. He was in significant respiratory distress. The patient was intubated. The patient was placed on a mechanical ventilator. The patient was also hemodynamically unstable no pressors started on norepinephrine infusion. Chest x-ray revealed extensive right upper lobe pneumonia. Note that the patient was weaned off and extubated on 10/25/2020. He is currently on an on rebreather facemask. He is on a Cardizem drip at 10 mg an hour for control of atrial fibrillation. The patient is also a DNR/DNI CODE STATUS based on a conversation that took place with the patient on 10/26/2020. Chest x-ray is showing extensive and diffuse bilateral pulmonary infiltrates most on the upper lobes along with the perihilar area bilaterally. Cultures of been showing positive Staphylococcus hominis in the blood. Patient is covered with a combination of Rocephin and Zithromax. Echocardiogram also showed impaired LV function with severe myocardial dysfunction and ejection fraction of 25-30%. Right ventricle systolic pressure is 42. There is also evidence of IVC dilatation no pericardial effusion. The patient is currently on IV Lasix 40 mg IV every 12 hours. The patient was taken off the Coumadin and the patient is on heparin drip for anticoagulation. He is on metoprolol 50 mg 3 times a day. Cardizem drip was gradually weaned off. Also placed on Aldactone 5 mg by mouth daily. Cardiology on the case. The patient is also on stress dose hydrocortisone. On today's evaluation of 10/27/2020, the patient remains quite lethargic, BiPAP dependent currently running at a pressure of 10/5 with an FiO2 of 100%. Repeat chest x-ray from today showing extensive bilateral infiltrates upper lobe predominance right more than left. Note that the cultures have been negative with exception of a staph growth in the blood. There is also volume loss in the right upper lobe shifting mediastinum to the right. As far as his cardiac status, the patient remains in atrial fibrillation with a rapid ventricular response. Cardiology has taken him off the Cardizem drip and he is going to be started on esmolol drip for rate control. Objective - Vital Signs Vital signs: Vital Signs Temp 97.9 F 10/26/20 20:00 Pulse 149 H 10/27/20 07:00 Resp 34 H 10/27/20 07:00 BP 93/59 10/27/20 07:00 Pulse Ox 98 10/27/20 07:00 Intake & Output 10/26/20 10/27/20 10/27/20 18:59 06:59 18:59 Intake Total 365.5 824.589 23 Output Total 1929 1760 45 Balance -1564.5 -935.411 -22 Weight 62.4 kg Intake: IV 276 566 23 .9 240 230 20 [place] Flush 36 36 3 Azithromycin 500 mg In 250 Sodium Chloride 0.9% 250 ml @ 250 mls/hr IVPB DAILY@2100 [facility] Rx#: [id number] cefTRIAXone 2 gm In 50 Sodium Chloride 0.9% 50 ml @ 100 mls/hr IVPB HS [facility] Rx#:[id number] Intake, IV Titration 89.5 258.589 Amount Diltiazem 125 mg In 89.5 Sodium Chloride 0.9% 100 ml @ 10 MG/HR 10 mls/hr IV .[id number] [facility] Rx#: [id number] Heparin Sod,Pork in 0.45% 258.589 NaCl 25,000 unit In 0.45 % NaCl 1 250ml.bag @ 12 UNITS/KG/HR 7.428 mls/hr IV .Q24H [facility] Rx#: [id number] Output: Urine 1929 1759 45 Other: Voiding Method Indwelling Catheter Indwelling Catheter # Bowel Movements 1 ABP, PAP, CO, CI - Last Documented Arterial Blood Pressure 85/40 - Exam No acute distress, awake, oriented, in no respiratory distress, currently on a BiPAP at a pressure of 10/5 with an FiO2 of 100%, lethargic, quite debilitated, in mild degree of respiratory distress. HEENT examination is grossly unremarkable. Neck supple. Full range of motion. No adenopathy thyromegaly or neck vein distention. Cardiovascular examination irregular rhythm consistent with atrial fibrillation, rate is controlled for now Lungs reveal diminished bilateral breath sounds. Scattered rhonchi. No wheezes. No crackles. Breath sounds equal bilaterally. Abdomen soft bowel sounds are heard. No masses or tenderness. Extremities are intact. No cyanosis clubbing or edema. Skin is without rash or lesion. Neurologic examination reveals an awake and verbally appropriate - Labs CBC & Chem 7: 10/27/20 04:25 10/27/20 04:25 Labs: Abnormal Lab Results - Last 24 Hours (Table) 10/26/20 10/26/20 10/26/20 Range/Units 11:47 17:24 20:47 WBC (3.8-10.6) k/uL RBC (4.30-5.90) m/uL Hgb (13.0-17.5) gm/dL Hct (39.0-53.0) % Neutrophils # (1.3-7.7) k/uL Lymphocytes # (1.0-4.8) k/uL PT (9.0-12.0) sec INR (<1.2) APTT (22.0-30.0) sec Potassium (3.5-5.1) mmol/L BUN (9-20) mg/dL Glucose (74-99) mg/dL POC Glucose (mg/dL) 100 H 121 H 122 H (75-99) mg/dL Calcium (8.4-10.2) mg/dL 10/27/20 10/27/20 10/27/20 Range/Units 04:25 04:25 04:25 WBC 13.9 H (3.8-10.6) k/uL RBC 3.27 L (4.30-5.90) m/uL Hgb 9.8 L (13.0-17.5) gm/dL Hct 31.0 L (39.0-53.0) % Neutrophils # 12.6 H (1.3-7.7) k/uL Lymphocytes # 0.5 L (1.0-4.8) k/uL PT 13.7 H (9.0-12.0) sec INR 1.3 H (<1.2) APTT 35.8 H (22.0-30.0) sec Potassium 3.2 L (3.5-5.1) mmol/L BUN 21 H (9-20) mg/dL Glucose 128 H (74-99) mg/dL POC Glucose (mg/dL) (75-99) mg/dL Calcium 7.9 L (8.4-10.2) mg/dL 10/27/20 Range/Units 06:59 WBC (3.8-10.6) k/uL RBC (4.30-5.90) m/uL Hgb (13.0-17.5) gm/dL Hct (39.0-53.0) % Neutrophils # (1.3-7.7) k/uL Lymphocytes # (1.0-4.8) k/uL PT (9.0-12.0) sec INR (<1.2) APTT (22.0-30.0) sec Potassium (3.5-5.1) mmol/L BUN (9-20) mg/dL Glucose (74-99) mg/dL POC Glucose (mg/dL) 118 H (75-99) mg/dL Calcium (8.4-10.2) mg/dL Microbiology - Last 24 Hours (Table) 10/23/20 00:05 Blood Culture Gram Stain - Preliminary Blood Blood Culture - Preliminary Staphylococcus hominis 10/22/20 23:45 Blood Culture Gram Stain - Final Blood Blood Culture - Final Staphylococcus epidermidis Assessment and Plan Plan: 1 Acute hypoxemic respiratory failure, likely secondary to COPD exacerbation, right upper lobe pneumonia, and hemoptysis, requiring intubation and mechanical ventilation on October 23, status post successful extubation on October 25. 2 staph hominis and the blood, consider staphylococcal bacteremia/sepsis 3 Hypotension, likely secondary to sepsis and upper lobe pneumonia, resolved. The patient is currently off pressors 4 severe cardiomyopathy with ejection fraction of 25-30% 5 History of hypertension. 6 chronic atrial fibrillation, with RVR, the time of admission, current rate is controlled on metoprolol and the patient is also on IV heparin 7 History of hypothyroidism. 8 Prior history of tobacco use. 9 COPD Plan The need BiPAP for respiratory support, currently on FiO2 of 100%. We'll keep the BiPAP for now. We broadened antibiotic coverage. Suggest stopping the Rocephin and azithromycin putting the patient on a combination of cefepime and vancomycin. Repeat pro calcitonin level today. Continue IV heparin. Management of atrial fibrillation per cardiology. The patient is being considered for esmolol drip for rate control. Alternatively, amiodarone can be also used for rate control. He is currently on oral Cardizem at a dose of 30 mg twice a day and metoprolol at a dose of 50 mg 3 times a day. Suggest stopping the diuretics for now. IV fluids in the form of saline at the rate of 20 mL an hour DNR/DNI CODE STATUS\ We'll continue to follow. Condition is critical at this point in time due to the above-mentioned c omorbidities. Ideally, I would like to see a CAT scan of his lungs. Nevertheless, based on his borderline status and BiPAP dependence, and ongoing atrial fibrillation with RVR, I opted not to at the time being. We'll consider this at a later stage. His chest x-ray showing some volume loss in the upper lobe which obviously raises the concern for a mass/malignancy. We'll continue to follow. CAT scan of the chest from December 2019 was reviewed. There was no evidence of any endobronchial tumors or malignancy at that point in time.
[2020-10-27] MEDS ORDERED: DEXTROSE 5% IN WATER 100 ML with AMIODARONE 150 MG IV ONE (08:00)
[2020-10-27] MEDS ORDERED: AMIODARONE 360 MG in DEXTROSE 5% IN WATER 200 ML IV ONE ×2 (08:10)
[2020-10-27] MEDS ORDERED: VANCOMYCIN 1,250 MG in SODIUM CHLORIDE 0.9% 250 ML IVPB ONE (08:30)
[2020-10-27] MEDS: PANTOPRAZOLE 40 MG/10 ML VIAL IV SCH (08:48)
[2020-10-27] MEDS: ESMOLOL IN SODIUM CHLORIDE PMX 2.5 GM in SALINE 1 250ML.BAG IV SCH ×2 (08:48→15:00)
[2020-10-27] MEDS ORDERED: CEFEPIME 1 GM in SODIUM CHLORIDE 0.9% 50 ML IVPB SCH (09:00)
--- NOTE | 2020-10-27 10:19 | P.PN ---
Subjective This is a pleasant 75-year-old male past medical history significant for chronic persistent atrial fibrillation on long-term anticoagulation with warfarin, nonrheumatic mitral regurgitation, former nicotine dependence, COPD and dyslipidemia. He follows in the office with Dr. Chino. He is seen and examined sitting up in the intensive care unit no acute distress. He denies chest pain, dizziness or palpitations. He is currently being treated for pneumonia. Currently warfarin is on hold and he is maintained on heparin infusion. Chest x-ray this morning reveals advanced emphysema with air space disease throughout the left lung he continued right apical consolidation and left basilar nodule density. Blood pressure 103/60 heart rate 152 afebrile maintaining oxygen saturation on high flow nasal cannula. Laboratory data reviewed, WBC 13.9, hemoglobin 9.8, platelets 334, INR 1.3, sodium 143, potassium 3.2, creatinine 0.72. Currently maintained on Cardizem 30 mg 3 times a day, Lasix 40 mg IV twice a day, Lopressor 50 mg 3 times a day, Aldactone 25 mg daily and IV heparin infusion. Review of office records indicate LV function has been normal in the past. GENERAL: Well-appearing, well-nourished and in no acute distress. NECK: Supple without JVD or thyromegaly. LUNGS: Scattered rhonchi, no wheezes or rales. Diminished bilaterally. Respiration equal and unlabored on high flow oxygen. HEART: Irregular rate and rhythm without murmurs, rubs or gallops. S1 and S2 heard. EXTREMITIES: Normal range of motion, no edema. No clubbing or cyanosis. Peripheral pulses intact. ASSESSMENT Acute hypoxic respiratory failure secondary to COPD and pneumonia Acute systolic heart failure, previous systolic function has always been normal. Chronic persistent atrial fibrillation with rapid ventricular rates Staph bacteremia Sepsis Leukocytosis Hypokalemia Dyslipidemia Hemoptysis on warfarin PLAN He is having ongoing poorly controlled ventricular rates on current PO regimen. Given his new cardiomyopathy we will avoid calcium channel blockers. Initiate esmolol and amiodarone infusions for rate control. Titrate for a rate of less than 100. Hold lopressor. Continue heparin infusion. Replace potassium per protocol. Further recommendations to follow based on clinical course. Nurse Practitioner note has been reviewed, I agree with a documented findings and plan of care. Patient was seen and examined. Objective - Vital Signs Vital signs: Vital Signs Temp 98.4 F 10/27/20 08:00 Pulse 108 H 10/27/20 09:00 Resp 31 H 10/27/20 09:00 BP 106/62 10/27/20 09:00 Pulse Ox 93 L 10/27/20 09:00 Intake & Output 10/26/20 10/27/20 10/27/20 18:59 06:59 18:59 Intake Total 365.5 824.589 95.676 Output Total 1930 1760 115 Balance -1564.5 -935.411 -19.324 Weight 62.4 kg Intake: IV 276 566 69 .9 240 230 60 [place] Flush 36 36 9 Azithromycin 500 mg In 250 Sodium Chloride 0.9% 250 ml @ 250 mls/hr IVPB DAILY@2100 [facility] Rx#: [id number] cefTRIAXone 2 gm In 50 Sodium Chloride 0.9% 50 ml @ 100 mls/hr IVPB HS [facility] Rx#:[id number] Intake, IV Titration 89.5 258.589 26.676 Amount Diltiazem 125 mg In 89.5 Sodium Chloride 0.9% 100 ml @ 10 MG/HR 10 mls/hr IV .[id number] [facility] Rx#: [id number] Esmolol in Sodium 26.676 Chloride Pmx 2.5 gm In Saline 1 250ml.bag @ 25 MCG/KG/MIN 9.36 mls/hr IV .Q24H [facility] Rx#:[id number] Heparin Sod,Pork in 0.45% 258.589 NaCl 25,000 unit In 0.45 % NaCl 1 250ml.bag @ 12 UNITS/KG/HR 7.428 mls/hr IV .Q24H [facility] Rx#: [id number] Output: Urine 1930 1760 115 Other: Voiding Method Indwelling Catheter Indwelling Catheter Indwelling Catheter # Bowel Movements 1 ABP, PAP, CO, CI - Last Documented Arterial Blood Pressure 90/59 - Labs CBC & Chem 7: 10/27/20 04:25 10/27/20 04:25 Labs: Abnormal Lab Results - Last 24 Hours (Table) 10/26/20 10/26/20 10/26/20 Range/Units 11:47 17:24 20:47 WBC (3.8-10.6) k/uL RBC (4.30-5.90) m/uL Hgb (13.0-17.5) gm/dL Hct (39.0-53.0) % Neutrophils # (1.3-7.7) k/uL Lymphocytes # (1.0-4.8) k/uL PT (9.0-12.0) sec INR (<1.2) APTT (22.0-30.0) sec Potassium (3.5-5.1) mmol/L BUN (9-20) mg/dL Glucose (74-99) mg/dL POC Glucose (mg/dL) 100 H 121 H 122 H (75-99) mg/dL Calcium (8.4-10.2) mg/dL 10/27/20 10/27/20 10/27/20 Range/Units 04:25 04:25 04:25 WBC 13.9 H (3.8-10.6) k/uL RBC 3.27 L (4.30-5.90) m/uL Hgb 9.8 L (13.0-17.5) gm/dL Hct 31.0 L (39.0-53.0) % Neutrophils # 12.6 H (1.3-7.7) k/uL Lymphocytes # 0.5 L (1.0-4.8) k/uL PT 13.7 H (9.0-12.0) sec INR 1.3 H (<1.2) APTT 35.8 H (22.0-30.0) sec Potassium 3.2 L (3.5-5.1) mmol/L BUN 21 H (9-20) mg/dL Glucose 128 H (74-99) mg/dL POC Glucose (mg/dL) (75-99) mg/dL Calcium 7.9 L (8.4-10.2) mg/dL 10/27/20 Range/Units 06:59 WBC (3.8-10.6) k/uL RBC (4.30-5.90) m/uL Hgb (13.0-17.5) gm/dL Hct (39.0-53.0) % Neutrophils # (1.3-7.7) k/uL Lymphocytes # (1.0-4.8) k/uL PT (9.0-12.0) sec INR (<1.2) APTT (22.0-30.0) sec Potassium (3.5-5.1) mmol/L BUN (9-20) mg/dL Glucose (74-99) mg/dL POC Glucose (mg/dL) 118 H (75-99) mg/dL Calcium (8.4-10.2) mg/dL Microbiology - Last 24 Hours (Table) 10/23/20 00:05 Blood Culture Gram Stain - Preliminary Blood Blood Culture - Preliminary Staphylococcus hominis 10/22/20 23:45 Blood Culture Gram Stain - Final Blood Blood Culture - Final Staphylococcus epidermidis
[2020-10-27] MEDS: SPIRONOLACTONE 25 MG TAB PO SCH (11:23)
[2020-10-27 11:29] LABS: Glucose,Whole Blood 181 mg/dL (75-99)
[2020-10-27] MEDS ORDERED: AMIODARONE 450 MG in DEXTROSE 5% IN WATER 250 ML IV SCH ×2 (14:10)
[2020-10-27] MEDS ORDERED: VANCOMYCIN 1,250 MG in SODIUM CHLORIDE 0.9% 250 ML IVPB SCH (16:00)
[2020-10-27] MEDS ORDERED: CEFEPIME 2 GM in SODIUM CHLORIDE 0.9% 100 ML IVPB SCH (16:00)
[2020-10-27 16:43] VITALS: TEMP 98.2
[2020-10-27 17:04] VITALS: BP 117/102; PULSE 135; RESP 24
--- NOTE | 2020-11-07 00:08 | P.PN ---
Subjective Progress Note Date: 10/27/20 Principal diagnosis: Acute hypoxic respiratory failure secondary to severe COPD exacerbation Patient is a 75-year-old the female came in with the hemoptysis. Patient has history of atrial fibrillation for which patient is on Coumadin. Patient had INR of 3.7 and patient. Patient has a negative d-dimer at that time. Patient is also found to be in acute hypercapnic respiratory failure does have history of COPD patient was subsequently intubated. Patient had a chest x-ray which showed right upper lobe infiltrate. Patient doesn't have any fever does have leukocytosis patient was subsequently started on Rocephin and azithromycin and on systemic steroids and patient has mild hyperchloremia because of which patient is on half-normal saline patient is also on epinephrine patient does have history of atrial fibrillation presently in atrial fibrillation with rapid ventricular rate for which patient is on metoprolol. Current ventilator settings are tidal volume of 400 FiO2 40% PEEP of 5 set up respiratory of 20 patient is on propofol sedation at this time. 10/24/2020 Patient's hemoptysis improved INR is 1.2 today there is a suspicion that the right upper lobe infiltrate is probably a mass. Patient made some ventilator support patient the remains on the same and later settings as yesterday remains on norepinephrine at 22 mcg, is on propofol drip as well patient went into atrial fibrillation because of which patient was started on Cardizem with fluctuating blood pressures. Cortisol level was ordered as well. 10/25/2020 Patient remains in major to support with the episode of her on 21% today patient was on Rocephin and azithromycin patient norepinephrine requirements have come down remains on propofol. Patient is being treated for right upper lobe pneu monia and COPD. Patient remains off Coumadin patient is still in atrial fibrillation with rapid and regular rate 10/26/2020 Patient seen on follow-up, extubated yesterday, he is off pressor support, maintaining O2 saturations above 90% on nonrebreather. He is tachypneic, not in overt distress. Heart rate is in the 70s, he remains on IV Cardizem at 10 an hour, anticoagulated with IV heparin. Patient is a 75-year-old the female came in with the hemoptysis. Patient has history of atrial fibrillation for which patient is on Coumadin. Patient had INR of 3.7 and patient. Patient has a negative d-dimer at that time. Patient is also found to be in acute hypercapnic respiratory failure does have history of COPD patient was subsequently intubated. Patient had a chest x-ray which showed right upper lobe infiltrate. Patient doesn't have any fever does have leukocytosis patient was subsequently started on Rocephin and azithromycin and on systemic steroids and patient has mild hyperchloremia because of which patient is on half-normal saline patient is also on epinephrine patient does have history of atrial fibrillation presently in atrial fibrillation with rapid ventricular rate for which patient is on metoprolol. Current ventilator settings are tidal volume of 400 FiO2 40% PEEP of 5 set up respiratory of 20 patient is on propofol sedation at this time. 10/24/2020 Patient's hemoptysis improved INR is 1.2 today there is a suspicion that the right upper lobe infiltrate is probably a mass. Patient made some ventilator support patient the remains on the same and later settings as yesterday remains on norepinephrine at 22 mcg, is on propofol drip as well patient went into atrial fibrillation because of which patient was started on Cardizem with fluctuating blood pressures. Cortisol level was ordered as well. 10/25/2020 Patient remains in major to support with the episode of her on 21% today patient was on Rocephin and azithromycin patient norepinephrine requirements have come down remains on propofol. Patient is being treated for right upper lobe pneumonia and COPD. Patient remains off Coumadin patient is still in atrial fibrillation with rapid and regular rate. Chest x-ray today showing worsening opacities in the bilateral upper lobes, no pneumothorax or pleural effusion. He is continued on antimicrobial therapy with azithromycin and Rocephin. Receiving systemic steroids with Cortef 50 IV every 6 hours. INR 1.6. Blood sugars controlled. 10/27/2020 Patient is in the MICU currently on high percent nonrebreather. Patient is lethargic and on on and off BiPAP. Repeat chest x-ray showed extensive bilateral infiltrates upper lobe predominance of right more than left. There is also volume loss in the right upper lobe shifting mediastinum to the right. Patient was admitted to the hospital due to acute hypoxic respiratory failure with hemoptysis and pneumonia. Patient was extubated on 10/25/2020 Patient is currently nonrebreather. Patient went into A. fib with RVR and was started on Cardizem drip. Cardizem drip is off and patient was started on esmolol drip as per cardiology recommendations. Patient is off pressor support. Chest x-ray showed extensive right lower lobe infiltrate. Patient is on antibiotics in the form of azithromycin and ceftriaxone. 2D echocardiogram showed ejection fraction 25 to 30% with severely impaired left ventricular systolic function. Patient is also on IV Lasix. On heparin drip due to atrial fibrillation. Patient's current CODE STATUS is DNR/DNI. Current medications reviewed. Objective - Vital Signs Vital signs: Vital Signs Temp 98.2 F 10/27/20 16:00 Pulse 135 H 10/27/20 17:00 Resp 24 10/27/20 17:00 BP 117/102 10/27/20 17:00 Pulse Ox 86 L 10/27/20 17:00 Intake & Output 10/26/20 10/27/20 10/27/20 18:59 06:59 18:59 Intake Total 365.5 824.589 755.000 Output Total 1930 1760 305 Balance -1564.5 -935.411 450.000 Weight 62.4 kg Intake: IV 276 566 505.0 .9 240 230 200 Allen Flush 36 36 30 Azithromycin 500 mg In 250 Sodium Chloride 0.9% 250 ml @ 250 mls/hr IVPB DAILY@2100 [facility] Rx#: [id number] Cefepime 1 gm In Sodium 25.0 Chloride 0.9% 50 ml @ 12. 5 mls/hr IVPB Q12HR [facility] Rx#:[id number] Vancomycin 1,250 mg In 250 Sodium Chloride 0.9% 250 ml @ 125 mls/hr IVPB ONCE ONE Rx#:[id number] cefTRIAXone 2 gm In 50 Sodium Chloride 0.9% 50 ml @ 100 mls/hr IVPB HS [facility] Rx#:[id number] Intake, IV Titration 89.5 258.589 250.000 Amount Diltiazem 125 mg In 89.5 Sodium Chloride 0.9% 100 ml @ 10 MG/HR 10 mls/hr IV .[id number] [facility] Rx#: [id number] Esmolol in Sodium 250.000 Chloride Pmx 2.5 gm In Saline 1 250ml.bag @ 25 MCG/KG/MIN 9.36 mls/hr IV .Q24H [facility] Rx#:[id number] Heparin Sod,Pork in 0.45% 258.589 NaCl 25,000 unit In 0.45 % NaCl 1 250ml.bag @ 12 UNITS/KG/HR 7.428 mls/hr IV .Q24H [facility] Rx#: [id number] Output: Urine 1930 1760 305 Other: Voiding Method Indwelling Catheter Indwelling Catheter Indwelling Catheter # Bowel Movements 1 ABP, PAP, CO, CI - Last Documented Arterial Blood Pressure 73/48 - Exam PHYSICAL EXAMINATION: GENERAL: Alert, appropriate Extubated, on nonrebreather, HEENT: Pupils are round and equally reacting to light. EOMI. No scleral icterus. No conjunctival pallor. Normocephalic, atraumatic. No pharyngeal erythema. No thyromegaly. CARDIOVASCULAR: S1 and S2 present. No murmurs, rubs, or gallops. PULMONARY: Bilateral expiratory wheezing, scattered rhonchi ABDOMEN: Soft, nontender, nondistended, normoactive bowel sounds. No palpable organomegaly. MUSCULOSKELETAL: No joint swelling or deformity. EXTREMITIES: No cyanosis, clubbing, or pedal edema. NEUROLOGIC: alert, oriented 3, moving all extremities SKIN: No rashes. - Labs CBC & Chem 7: 10/27/20 04:25 10/27/20 04:25 Labs: Abnormal Lab Results - Last 24 Hours (Table) 10/26/20 10/26/20 10/27/20 Range/Units 17:24 20:47 04:25 WBC (3.8-10.6) k/uL RBC (4.30-5.90) m/uL Hgb (13.0-17.5) gm/dL Hct (39.0-53.0) % Neutrophils # (1.3-7.7) k/uL Lymphocytes # (1.0-4.8) k/uL PT (9.0-12.0) sec INR (<1.2) APTT (22.0-30.0) sec Potassium 3.2 L (3.5-5.1) mmol/L BUN 21 H (9-20) mg/dL Glucose 128 H (74-99) mg/dL POC Glucose (mg/dL) 121 H 122 H (75-99) mg/dL Calcium 7.9 L (8.4-10.2) mg/dL 10/27/20 10/27/20 10/27/20 Range/Units 04:25 04:25 06:59 WBC 13.9 H (3.8-10.6) k/uL RBC 3.27 L (4.30-5.90) m/uL Hgb 9.8 L (13.0-17.5) gm/dL Hct 31.0 L (39.0-53.0) % Neutrophils # 12.6 H (1.3-7.7) k/uL Lymphocytes # 0.5 L (1.0-4.8) k/uL PT 13.7 H (9.0-12.0) sec INR 1.3 H (<1.2) APTT 35.8 H (22.0-30.0) sec Potassium (3.5-5.1) mmol/L BUN (9-20) mg/dL Glucose (74-99) mg/dL POC Glucose (mg/dL) 118 H (75-99) mg/dL Calcium (8.4-10.2) mg/dL 10/27/20 10/27/20 Range/Units 11:27 11:27 WBC (3.8-10.6) k/uL RBC (4.30-5.90) m/uL Hgb (13.0-17.5) gm/dL Hct (39.0-53.0) % Neutrophils # (1.3-7.7) k/uL Lymphocytes # (1.0-4.8) k/uL PT (9.0-12.0) sec INR (<1.2) APTT 49.4 H (22.0-30.0) sec Potassium (3.5-5.1) mmol/L BUN (9-20) mg/dL Glucose (74-99) mg/dL POC Glucose (mg/dL) 181 H (75-99) mg/dL Calcium (8.4-10.2) mg/dL Microbiology - Last 24 Hours (Table) 10/23/20 00:05 Blood Culture Gram Stain - Final Blood Blood Culture - Final Staphylococcus hominis Staphylococcus epidermidis Assessment and Plan Assessment: Assessment and plan -Acute hypoxic respiratory failure secondary to severe COPD exacerbation : Requiring mechanical ventilation, extubated on 10/25/20. Continues antimicrobial therapy with Rocephin and azithromycin. on BIPPA IV steroids with Cortef every 6 hours. -Atrial fibrillation with rapid ventricular rate patient is presently on Cardizem, anticoagulated with IV heparin -Septic shock secondary to pneumonia right upper lobe patient will continued on above-mentioned antibiotics. He is off pressor support, fluids hep-locked.. Blood pressure stable -Probable right upper lobe mass cannot be ruled out -History of chronic atrial fibrillation presently left ventricular rate patient is in metoprolol and IV Cardizem, anticoagulated with IV heparin, Coumadin is being held because of hemoptysis, present INR is 1.4 -Hemoptysis secondary to Coumadin and bronchitis and pneumonia. -Hypothyroidism -COPD with acute exacerbation DVT prophylaxis: Patient has elevated INR and had hemoptysis. Prognosis poor at this time. Time with Patient: Greater than 30
--- NOTE | 2020-11-07 00:22 | P.DS ---
Providers Date of admission: 10/23/20 02:01 Expected date of discharge: 10/27/20 Attending physician: Jorge Cordova Consults: 10/23/20 01:56 Consult Physician Routine Consulting Provider: Daniel Woo Consult Reason/Comments: icu Do you want consulting provider notified?: Yes Consult Physician Routine Consulting Provider: Martha Campoverde Consult Reason/Comments: [email or web address] Do you want consulting provider notified?: Yes [facility]: discharge diagnosis -Acute hypoxic respiratory failure secondary to severe COPD exacerbation : Requiring mechanical ventilation, extubated on 10/25/20. Continues antimicrobial therapy with Rocephin and azithromycin. on BIPPA IV steroids with Cortef every 6 hours. -Atrial fibrillation with rapid ventricular rate patient is presently on Cardizem, anticoagulated with IV heparin -Septic shock secondary to pneumonia right upper lobe patient will continued on above-mentioned antibiotics. He is off pressor support, fluids hep-locked.. Blood pressure stable -Probable right upper lobe mass cannot be ruled out -History of chronic atrial fibrillation presently left ventricular rate patient is in metoprolol and IV Cardizem, anticoagulated with IV heparin, Coumadin is being held because of hemoptysis, present INR is 1.4 -Hemoptysis secondary to Coumadin and bronchitis and pneumonia. -Hypothyroidism -COPD with acute exacerbation DVT prophylaxis: Patient has elevated INR and had hemoptysis. Prognosis poor at this time. Hospital course Patient is a 75-year-old the female came in with the hemoptysis. Patient has history of atrial fibrillation for which patient is on Coumadin. Patient had INR of 3.7 and patient. Patient has a negative d-dimer at that time. Patient is also found to be in acute hypercapnic respiratory failure does have history of COPD patient was subsequently intubated. Patient had a chest x-ray which showed right upper lobe infiltrate. Patient doesn't have any fever does have leukocytosis patient was subsequently started on Rocephin and azithromycin and on systemic steroids and patient has mild hyperchloremia because of which patient is on half-normal saline patient is also on epinephrine patient does have history of atrial fibrillation presently in atrial fibrillation with rapid ventricular rate for which patient is on metoprolol. Current ventilator settings are tidal volume of 400 FiO2 40% PEEP of 5 set up respiratory of 20 patient is on propofol sedation at this time. 10/24/2020 Patient's hemoptysis improved INR is 1.2 today there is a suspicion that the right upper lobe infiltrate is probably a mass. Patient made some ventilator support patient the remains on the same and later settings as yesterday remains on norepinephrine at 22 mcg, is on propofol drip as well patient went into atrial fibrillation because of which patient was started on Cardizem with fluctuating blood pressures. Cortisol level was ordered as well. 10/25/2020 Patient remains in major to support with the episode of her on 21% today patient was on Rocephin and azithromycin patient norepinephrine requirements have come down remains on propofol. Patient is being treated for right upper lobe pneumonia and COPD. Patient remains off Coumadin patient is still in atrial fibrillation with rapid and regular rate 10/26/2020 Patient seen on follow-up, extubated yesterday, he is off pressor support, maintaining O2 saturations above 90% on nonrebreather. He is tachypneic, not in overt distress. Heart rate is in the 70s, he remains on IV Cardizem at 10 an ho ur, anticoagulated with IV heparin. Patient is a 75-year-old the female came in with the hemoptysis. Patient has history of atrial fibrillation for which patient is on Coumadin. Patient had INR of 3.7 and patient. Patient has a negative d-dimer at that time. Patient is also found to be in acute hypercapnic respiratory failure does have history of COPD patient was subsequently intubated. Patient had a chest x-ray which showed right upper lobe infiltrate. Patient doesn't have any fever does have leukocytosis patient was subsequently started on Rocephin and azithromycin and on systemic steroids and patient has mild hyperchloremia because of which patient is on half-normal saline patient is also on epinephrine patient does have history of atrial fibrillation presently in atrial fibrillation with rapid ventricular rate for which patient is on metoprolol. Current ventilator settings are tidal volume of 400 FiO2 40% PEEP of 5 set up respiratory of 20 patient is on propofol sedation at this time. 10/24/2020 Patient's hemoptysis improved INR is 1.2 today there is a suspicion that the right upper lobe infiltrate is probably a mass. Patient made some ventilator support patient the remains on the same and later settings as yesterday remains on norepinephrine at 22 mcg, is on propofol drip as well patient went into atrial fibrillation because of which patient was started on Cardizem with fluctuating blood pressures. Cortisol level was ordered as well. 10/25/2020 Patient remains in major to support with the episode of her on 21% today patient was on Rocephin and azithromycin patient norepinephrine requirements have come down remains on propofol. Patient is being treated for right upper lobe pneumonia and COPD. Patient remains off Coumadin patient is still in atrial fibrillation with rapid and regular rate. Chest x-ray today showing worsening opacities in the bilateral upper lobes, no pneumothorax or pleural effusion. He is continued on antimicrobial therapy with azithromycin and Rocephin. Receiving systemic steroids with Cortef 50 IV every 6 hours. INR 1.6. Blood sugars controlled. 10/27/2020 Patient is in the MICU currently on high percent nonrebreather. Patient is lethargic and on on and off BiPAP. Repeat chest x-ray showed extensive bilateral infiltrates upper lobe predominance of right more than left. There is also volume loss in the right upper lobe shifting mediastinum to the right. Patient was admitted to the hospital due to acute hypoxic respiratory failure with hemoptysis and pneumonia. Patient was extubated on 10/25/2020 Patient is currently nonrebreather. Patient went into A. fib with RVR and was started on Cardizem drip. Cardizem drip is off and patient was started on esmolol drip as per cardiology recommendations. Patient is off pressor support. Chest x-ray showed extensive right lower lobe infiltrate. Patient is on antibiotics in the form of azithromycin and ceftriaxone. 2D echocardiogram showed ejection fraction 25 to 30% with severely impaired left ventricular systolic function. Patient is also on IV Lasix. On heparin drip due to atrial fibrillation. Patient's current CODE STATUS is DNR/DNI. Due to worsening respiratory status and patient being remained BiPAP and uncontrolled heart rate along with low ejection fraction. Due to ongoing acute multiple medical problems, patient would like comfort care and would like to be transferred to hospice care. Patient Condition at Discharge: Critical Plan - Discharge Summary New Discharge Prescriptions: No Action Metoprolol Tartrate [Lopressor] 150 mg PO DAILY@0900 Metoprolol Tartrate [Lopressor] 100 mg PO DAILY@1200 Metoprolol Tartrate [Lopressor] 50 mg PO HS Warfarin Sodium 2.5 mg PO TUSA Levothyroxine Sodium 25 mcg PO DAILY Warfarin [Coumadin] 5 mg PO SUMOWEFR Discharge Medication List Levothyroxine Sodium 25 mcg PO DAILY 10/22/20 [History] Metoprolol Tartrate [Lopressor] 50 mg PO HS 10/22/20 [History] Metoprolol Tartrate [Lopressor] 100 mg PO DAILY@1200 10/22/20 [History] Metoprolol Tartrate [Lopressor] 150 mg PO DAILY@0900 10/22/20 [History] Warfarin Sodium 2.5 mg PO TUSA 10/22/20 [History] Warfarin [Coumadin] 5 mg PO SUMOWEFR 10/23/20 [History] Follow up Appointment(s)/Referral(s): Jorge Cordova MD [STAFF PHYSICIAN] - 1-2 days Jonny Chino MD [STAFF PHYSICIAN] - 1 Week Discharge Disposition: - Preliminary Cause of Preliminary Cause of : Acute hypoxic respiratory failure and septic shock
== END 2020-10-27 17:19 | disposition expired | DRG 871 ==
LOC: EC 21:22 → 2SICU 10-23 02:01
PROVIDERS: ADMIT Family Medicine; ATTEND Family Medicine
PROC: 5A1945Z Respiratory Ventilation, 24-96 Consecutive Hours (ICD-10-PCS; 2020-10-23)
PROC: 02HV33Z Insertion of Infusion Device into Superior Vena Cava, Percutaneous Approach (ICD-10-PCS; 2020-10-23)
PROC: 0BH17EZ Insertion of Endotracheal Airway into Trachea, Via Natural or Artificial Opening (ICD-10-PCS; 2020-10-23)
PROC: 03HY32Z Insertion of Monitoring Device into Upper Artery, Percutaneous Approach (ICD-10-PCS; principal; 2020-10-24)
PROC: 4A133B1 Monitoring of Arterial Pressure, Peripheral, Percutaneous Approach (ICD-10-PCS; 2020-10-24)
PROC: 4A133J1 Monitoring of Arterial Pulse, Peripheral, Percutaneous Approach (ICD-10-PCS; 2020-10-24)
DX: A41.1 Sepsis due to other specified staphylococcus (principal); J96.01 Acute respiratory failure with hypoxia; J18.9 Pneumonia, unspecified organism; R65.21 Severe sepsis with septic shock; I50.21 Acute systolic (congestive) heart failure; J96.02 Acute respiratory failure with hypercapnia; R04.2 Hemoptysis; D68.9 Coagulation defect, unspecified; I48.19 Other persistent atrial fibrillation; D68.32 Hemorrhagic disorder due to extrinsic circulating anticoagulants; I42.9 Cardiomyopathy, unspecified; I34.0 Nonrheumatic mitral (valve) insufficiency; I11.0 Hypertensive heart disease with heart failure; J43.9 Emphysema, unspecified; R57.0 Cardiogenic shock; T45.515A Adverse effect of anticoagulants, initial encounter; E87.6 Hypokalemia; E78.5 Hyperlipidemia, unspecified; E87.8 Other disorders of electrolyte and fluid balance, not elsewhere classified; E03.9 Hypothyroidism, unspecified; Z87.891 Personal history of nicotine dependence; Z79.890 Hormone replacement therapy; Z79.899 Other long term (current) drug therapy; Z66 Do not resuscitate; Z79.01 Long term (current) use of anticoagulants; Z51.5 Encounter for palliative care
CPT/HCPCS: 36415; 36600; 71045; 80048; 80053; 82533; 82805; 83036; 83605; 83735; 84100; 84145; 84484; 85025; 85379; 85610; 85730; 87040; 87077; 87186; 93005; 93306; 94002; 94003; 94640; 94660; 96360; 96361; 96365; 96367; 96368; 96372; 96374; 96375; 99291

== ENCOUNTER 2020-10-27 17:08 | Inpatient (IN) | payer MEDICAID ==
[2020-10-27] MEDS ORDERED: LORazepam 2 MG/ML INJ IV PRN (17:43)
[2020-10-27] MEDS ORDERED: ATROPINE OPHTH SOLN 1% 5ML BTL SUBLINGUAL PRN (17:43)
[2020-10-27] MEDS ORDERED: MORPHINE SULFATE 2 MG/ML SYRINGE IV PRN (17:43)
[2020-10-27] MEDS ORDERED: MORPHINE SULFATE 2 MG/ML SYRINGE IVP ONE (17:43)
[2020-10-27] MEDS ORDERED: ACETAMINOPHEN SUPPOSITORY 650 MG SUPP RECTAL PRN (17:43)
[2020-10-27] MEDS ORDERED: MORPHINE SULFATE (100 MG/2 ML) 100 MG in SODIUM CHLORIDE 0.9% 100 ML IV SCH (17:45)
[2020-10-27] MEDS ORDERED: bisacodyL 10 MG SUPP RECTAL PRN (17:45)
== END 2020-10-27 19:00 | disposition expired | DRG 951 ==
LOC: 2SICU 17:41
PROVIDERS: ADMIT Internal Medicine; ATTEND Internal Medicine
DX: Z51.5 Encounter for palliative care (principal); J96.01 Acute respiratory failure with hypoxia; J44.1 Chronic obstructive pulmonary disease with (acute) exacerbation; J44.0 Chronic obstructive pulmonary disease with (acute) lower respiratory infection; R04.2 Hemoptysis; D68.32 Hemorrhagic disorder due to extrinsic circulating anticoagulants; I48.20 Chronic atrial fibrillation, unspecified; T45.515A Adverse effect of anticoagulants, initial encounter; E03.9 Hypothyroidism, unspecified; Z79.01 Long term (current) use of anticoagulants; Z79.899 Other long term (current) drug therapy; Z87.891 Personal history of nicotine dependence; Z79.890 Hormone replacement therapy